=== PATIENT | female | born 1950 | race Caucasian/White ===

== ENCOUNTER 2023-03-10 11:28 | Outpatient (OUT) | payer MEDICARE, OTHER, SELFPAY ==
--- NOTE | 2023-03-10 15:16 | CONS_ITS ---
PROCEDURE DATE: ??03/10/2023 PROCEDURE:? Trigger point injection right gluteus medius performed in the office. PREOPERATIVE DIAGNOSIS:? Pain secondary to myofascial spasm of the right gluteus medius. POSTOPERATIVE DIAGNOSIS:? Pain secondary to myofascial spasm of the right gluteus medius. SOLUTION USED FOR INJECTION:? 2 mL of 2% lidocaine, 2 mL of 0.25% Marcaine and 10 mg of Kenalog, total of 5 mL and 3 mL used for the injection. IMMEDIATE COMPLICATIONS:? None. PROCEDURE:? After informed consent was obtained from the patient, placed in the prone position.? The skin overlying the area was prepped with alcohol.? A 25 gauge 1 ? inch needle inserted into the area of the right gluteus medius.? Needle tip advanced until there was a mild twitch response, at which point we injected 3 mL of solution.? No indication of intravascular or intraneural needle tip placement or injection.? Tolerated the procedure well without complications.? JAKOBD
--- NOTE | 2023-03-10 15:16 | CONS_ITS ---
CONSULTATION DATE: ??03/10/2023 TO:? Karan Andres D.O. CHIEF COMPLAINT:? Includes severe right lower extremity pain, right buttock pain, right hip pain. HISTORY:? Reports the pain as being 6/10, sharp in character, increased with activities such as standing, walking and performing transitioning maneuvers.? Feels most comfortable in the semi-recumbent position.? Denies any change in bowel and bladder habits or new sensorimotor changes in the lower extremities.? EXAM:? Her exam is notable for patient having hypoesthesia along the right L4 or 5 dermatome, mild weakness of the right EHL and anterior tibialis, equivocally positive right sided FABERs sign suggestive of possible hip joint related pain clinically, and spasm and tenderness of the right gluteus medius muscle. IMPRESSION:? Our impression is patient appears to have chronic pain secondary to lumbar degenerative disc disease, possible right L4-L5 neurogenic process, lumbosacral spondylosis and right hip joint related pain clinically, and lastly myofascial spasm of the right gluteus medius. RECOMMENDATIONS:? I have recommended an EMG nerve conduction velocity study of her right lower extremity, right hip x-rays, trigger point injection of the right gluteus medius.? As part of providing excellent, safe, comprehensive care, the following was completed at our patient's visit: 1. A medication reconciliation and review to ensure accurate knowledge of current/active medications, including asking our patients to inform us about any clwz-wva-fnawvdq medications or herbal remedies/nutritional supplements/alternative remedies. 2. A review to specifically ensure our patients have had annual screening for: elevated body mass index (BMI, see intake chart for exact total), tobacco use, screening for depression, and screening for unhealthy alcohol use.? When screening is concerning, patients are provided with education and the specific recommendation to discuss the concerning health issue and treatment options with their primary care provider. ARI
== END 2023-03-10 11:29 | disposition home or self-care (01) ==
LOC: PM 11:29
PROVIDERS: Visit Provider Anesthesiology Pain Medicine
DX: M25.551 Pain in right hip (principal); M62.838 Other muscle spasm
CPT/HCPCS: 20552; 73502

== ENCOUNTER 2023-03-10 12:48 | Outpatient (OUT) | payer MEDICARE, OTHER, SELFPAY ==
--- NOTE | 2023-03-10 12:58 | XR_ITS ---
The [address] [address] Patient Name: ROZ ESCOTO MRN: [id number] date: 1950 Sex: F Assigned Patient Location: [facility] Current Patient Location: [facility] Accession/Order Number: [id number] Exam Date: 03/10/2023 13:15 Report Date: 03/10/2023 23:27 At the request of: RALEIGH ALMAZAN Procedure: XR hip RT min 2V EXAM: XR hip RT min 2V HISTORY: Chronic right hip pain. COMPARISON: None. TECHNIQUE: 2 views right hip joint. FINDINGS: Minimal to mild degenerative change of the right hip joint with no fracture or dislocation. Mild chronic enthesopathic change right greater trochanter. Visualized portion of the right pelvis is intact where seen. IMPRESSION: Slight early degenerative change right hip without acute process. If patient cannot bear weight or has persistent symptoms, then recommend MRI. Electronically authenticated by: SAUL SÁNCHEZ Date: 03/10/2023 23:27
== END 2023-03-10 12:49 ==
LOC: RAD 12:50
PROVIDERS: Visit Provider Anesthesiology Pain Medicine
DX: M25.551 Pain in right hip (principal)
CPT/HCPCS: 73502

== ENCOUNTER 2023-03-25 08:32 | Outpatient (OUT) | payer MEDICARE, OTHER, SELFPAY ==
--- NOTE | 2023-03-25 08:40 | MR_ITS ---
[place] [id number] Patient Name: ROZ LE MRN: [id number] date: 1950 Sex: F Assigned Patient Location: MRI Current Patient Location: Accession/Order Number: [id number] Exam Date: 03/25/2023 08:40 Report Date: 03/26/2023 10:54 At the request of: RALEIGH ALMAZAN Procedure: MR hip RT wo con EXAMINATION: MR hip RT wo con TECHNIQUE: routine multiplanar multisequence awa-VL-xqanoldt imaging of the hip was performed. HISTORY: Right Hip Pain. COMPARISON: Radiograph 03/10/2023 FINDINGS: Ligaments: No acute ligamentous injury. Glenoid labrum: Abnormal heterogeneous signal of the anterior superior portion of the acetabular labrum, consistent with a full-thickness tear. Tendons: Intact and non-displaced. Bones: No significant marrow signal abnormality or defect. Mild prominence of the anterior aspect of the right femoral neck suggesting CAM-type femoral acetabular impingement. Joints: No significant arthritic changes. Articular cartilage appears intact. Soft tissues: No soft tissue mass or abnormal fluid collection. IMPRESSION: 1. Full thickness tear of the anterior superior portion of the acetabular labrum. 2. Findings suggesting CAM-type femoral acetabular impingement. Electronically authenticated by: SANGEETHA CRUZ Date: 03/26/2023 10:54
== END 2023-03-25 08:33 | disposition home or self-care (01) ==
LOC: MRI 08:32
PROVIDERS: Visit Provider Anesthesiology Pain Medicine
DX: M25.551 Pain in right hip (principal); S43.431A Superior glenoid labrum lesion of right shoulder, initial encounter
CPT/HCPCS: 73721

== ENCOUNTER 2023-04-05 14:25 | Outpatient (OUT) | payer MEDICARE, OTHER, SELFPAY ==
--- NOTE | 2023-04-05 | CONS_ITS ---
CONSULTATION DATE: ??04/05/2023 TO:? Dr. Mercer HISTORY:? Patient returns today complaining of pain in her right hip area and right leg pain.? She reports these are two distinct painful areas, the right hip and the right leg.? She reports the right hip pain is increased with activities such as standing and performing transitioning maneuvers.? She reports the right leg pain increases with ambulation.? Her EMG did reveal a right S1 radiculopathy. MRI of her right hip did reveal the patient to have full thickness tear of the anterior superior portion of the acetabular labrum.? PLAN:? At this point, the patient is requesting an orthopedic consultation.? We will comply with her wishes, and she is requesting to stay in the local area; although she did have a consultation recently with an orthopedic surgeon, she is requesting a second opinion, and we will help facilitate the same.? See the patient back in the office in four weeks? time. As part of providing excellent, safe, comprehensive care, the following was completed at our patient's visit: 1. A medication reconciliation and review to ensure accurate knowledge of current/active medications, including asking our patients to inform us about any rlvl-pwg-fypwexw medications or herbal remedies/nutritional supplements/alternative remedies. 2. A review to specifically ensure our patients have had annual screening for: elevated body mass index (BMI, see intake chart for exact total), tobacco use, screening for depression, and screening for unhealthy alcohol use.? When screening is concerning, patients are provided with education and the specific recommendation to discuss the concerning health issue and treatment options with their primary care provider. ARI
== END 2023-04-05 14:26 | disposition home or self-care (01) ==
LOC: PM 14:26
PROVIDERS: Visit Provider Anesthesiology Pain Medicine
DX: M25.551 Pain in right hip (principal); S73.191A Other sprain of right hip, initial encounter; M54.18 Radiculopathy, sacral and sacrococcygeal region
CPT/HCPCS: G0463

== ENCOUNTER 2023-12-05 10:27 | Outpatient (OUT) | payer MEDICARE, SELFPAY ==
--- NOTE | 2023-12-05 10:36 | VEIN_ITS ---
Patient Name: ROZ LE MR#: [id number] : 1950 Exam Date: 12/05/2023 Ordering Doctor: DR KARAN DAVIS M.D. RADIOLOGY REPORT PROCEDURE: VC EXT VENOUS REFLUX ALBERT LMTD COMPARISON: None. INDICATIONS: I83.813 Bilateral painful varicose veins TECHNIQUE: Duplex imaging of the lower extremity to assess the deep and superficial venous system for the presence of deep or superficial venous incompetence and to document the location and severity of disease. The study includes evaluation of the great saphenous vein (GSV), anterior accessory saphenous vein (AASV) and small saphenous vein (SSV). Patient scanned in reverse Trendelenburg and standing. FINDINGS: RIGHT LOWER EXTREMITY: Saphenofemoral Junction Reflux: Yes 7.4mm 0.6 sec GSV: Diam (mm) Reflux/ Time (sec) Proximal Thigh 7.0 Yes 0.9 Mid Thigh 4.4 Yes 0.8 Distal Thigh 4.6 Yes 1.2 Prox Calf 4.1 Yes 3.3 Mid Calf 3.3 Yes 0.6 Saphenopopliteal Junction Reflux: 1.5mm Yes 0.2 SSV: Proximal Calf 1.2 No Mid Calf 2.2 No AASV: Proximal Thigh 3.3 Yes 4.0 Mid Thigh 1.9 Yes 0.7 Distal Thigh Thrombi: No acute or chronic thrombus. Compressibility: Normal. Flow: Mild deep venous reflux. Preforator: None. Tech Note: Hyperechoic area distal medial lower leg in area of bruising 1.2 x 0.9 x 0.5 cm. Incompetent varicose vein proximal medial lower leg measures 4.0 mm with 0.7s reflux. Varicose vein distal medial thigh measures 4.0 mm with 0.5s reflux. LEFT LOWER EXTREMITY: Saphenofemoral Junction Reflux: Yes 5.9 mm 1.0 sec GSV: Diam (mm) Reflux/Time (sec) Proximal Thigh 6.4 Yes 4.0 Mid Thigh 4.3 Yes 1.4 Distal Thigh 3.4 Yes 4.9 Prox Calf 2.5 Yes 4.7 Mid Calf 2.0 Yes 2.2 Saphenopopliteal Junction Relux: 2.5 mm Yes 0.3 SSV: Proximal Calf 2.0 Yes 2.0 Mid Calf 1.9 Yes 0.3 AASV: Proximal Thigh 4.5 Yes 0.4 Mid Thigh 2.4 Yes 0.3 Distal Thigh Thrombi: No acute or chronic thrombus. Compressibility: Normal. Flow: Moderate to severe deep venous reflux. [place]: Mid medial lower leg measures 2.6 mm with 4.9s reflux. Tech Note: Incompetent varicose vein proximal posterior lower leg measures 2.7 mm with 0.2s reflux. CONCLUSION: 1. Moderate to severe bilateral great saphenous vein venous insufficiency with mild dilatation and saphenofemoral junction reflux 2. Moderate reflux right anterior accessory saphenous vein without dilatation 3. Moderate reflux left small saphenous vein without dilatation 4. Bilateral incompetent varicose veins, right greater than left Dictated by: Karan Davis MD on 12/05/2023 at 11:50 Approved by: Karan Davis MD on 12/05/2023 at 11:54
--- NOTE | 2023-12-05 10:36 | VEIN_ITS ---
Patient Name: ROZ LE MR#: [id number] : 1950 Exam Date: 12/05/2023 Ordering Doctor: DR KARAN DAVIS M.D. RADIOLOGY REPORT PROCEDURE: [facility]IN [facility] - OFFICE VISIT INITIAL COMPARISON: None. PROGRESS NOTES: 73-year-old female who presents with an 8 month history of lower extremity pain swelling and varicose veins. The patient's left side is worse than the right. The patient also complains of aching heaviness itching and dull pain. The patient rates the pain as a 3 on a scale of 1-10. The patient's pains are exacerbated by prolonged standing and are partially relieved by rest, leg elevation, support stockings and over the counter naproxen. The patient was diagnosed with varicose veins approximately 5 years ago and did have sessions of injection sclerotherapy in 2019. The patient denies any signs and symptoms to suggest arterial ischemia. The patient describes a family history significant for CVA, varicose veins in her mother and sister. Lung cancer in her father. . The patient denies alcohol use. The patient has never smoked. No illicit drug use. Past medical symptoms are significant for superficial bilateral phlebitis, bilateral rotator cuff repair. No history of deep venous thrombus or pulmonary embolus. See separate history and physical for medication list. No prior treatment for varicose or spider veins. No prior use of compression stockings. After review of nurse notes, history and physical exam I discussed at length the pathophysiology of venous hypertension , insufficiency and possible treatments, therapies and strategies available. We discussed at length the importance of elevating the lower extremities above the level of the heart, increased physical activity and compression stocking use. I discussed with the patient that her lower extremity swelling was not lymphedema but likely related to subcutaneous fat and possibly represented lipedema. Some of the patient's symptoms however could be related to significant venous insufficiency. We discussed intravenous laser ablation, micro foam chemical ablation, injection sclerotherapy. Risks benefits alternatives were discussed with the patient Ultrasound venous reflux study performed the same day was discussed at length with the patient. The report demonstrates moderate to severe bilateral great saphenous vein venous insufficiency with saphenofemoral junction reflux. Moderate right anterior accessory and left small saphenous vein reflux without dilatation. Bilateral varicose veins. PHYSICAL EXAM: The right leg demonstrates a few scattered varicose veins. Moderate reticular and spider veins throughout the thigh lower leg, ankle and foot. Prominent circumferential subcutaneous fat of the thigh and lower leg extending to the ankle but not into the foot. No skin discoloration or active ulceration. The left leg demonstrates a few scattered varicose veins. Moderate reticular and spider veins throughout the thigh lower leg, ankle and foot. Prominent circumferential subcutaneous fat of the thigh and lower leg extending to the ankle but not into the foot. No skin discoloration or active ulceration. Both thighs, legs and feet were symmetrically warm to the touch. Good posterior tibial and dorsalis pedis pulses were present bilaterally. VEIN/VC Facility EST Comprehensive IMPRESSION: 1. Moderate to severe bilateral great saphenous vein venous insufficiency with saphenofemoral junction reflux 2. Mild bilateral lower extremity varicose veins 3. No definite lower extremity subcutaneous edema 4. No definite flow significant arterial disease 5. CEAP: C2, Ep, As, Pr PLAN: 1. Endovenous laser ablation of the left great saphenous vein. If there is improvement in the patient's symptoms we will continue with laser ablation of the right great saphenous vein 2. Micro foam chemical ablation bilateral incompetent varicose veins 3. Long-term use of bilateral knee or thigh high 20-30 mm compression stockings 4. Elevated legs and increased physical activity for symptomatic relief Nurse notes, history and physical were reviewed and confirmed, see attached forms. The nurse was present throughout the physical exam and consultation Dictated by: Karan Davis MD on 12/05/2023 at 12:31 Approved by: Karan Davis MD on 12/05/2023 at 12:38
== END 2023-12-05 10:28 | disposition home or self-care (01) ==
PROVIDERS: PCP Radiology Diagnostic Radiology; Visit Provider Radiology Diagnostic Radiology
DX: I83.813 Varicose veins of bilateral lower extremities with pain (principal)
CPT/HCPCS: 93970; G0463

== ENCOUNTER 2023-12-16 12:24 | Outpatient (OUT) | payer MEDICARE, SELFPAY ==
--- NOTE | 2023-12-16 12:30 | VEIN_ITS ---
The [address] [address] Patient Name: ROZ LE MRN: [id number] date: 1950 Sex: F Assigned Patient Location: Current Patient Location: Accession/Order Number: [id number] Exam Date: 12/16/2023 12:31 Report Date: 12/16/2023 13:50 At the request of: RAUDEL DAVIS Procedure: VC Endovenous Ablation 1VeinLT EXAMINATION: VC Endovenous Ablation 1VeinLT HISTORY: Pain due to varicose veins of bilateral legs I83.813 The risks and benefits of the procedure had been previously discussed, and were rediscussed at length. Informed written consent was obtained. Earnest Montes De Oca RN and Jessica Verma RDMS assisted. Time out procedure was performed. The left lower extremity was prepared and draped in the usual sterile fashion to allow knee flexion in the sterile field. Duplex ultrasound probe was draped in a sterile cover, sterile transmission gel was used. Venous mapping was performed with the areas of dilation and large tributaries marked. The total length was 34 cm from the entry proximal calf to 3 cm below the Saphenofemoral junction. The diameter of the left great saphenous vein ranged from 6.4 mm. A 30 gauge needle and 1% buffered lidocaine was used to anesthetize the entry site. A 4 mm incision was made with a scalpel and the saphenous vein was entered percutaneously under direct ultrasound guidance with a micropuncture set, a single stick was successful in gaining access. A micro-guide wire was inserted and the needle removed. A micro-set including a dilator was inserted over the microwire and the needle and dilator were removed. A guide wire was inserted through the micro-set and guided through the saphenous vein to the saphenofemoral junction. The dilator was removed and an introducer sheath was inserted over the wire until the end of the sheath entered the saphenofemoral junction. The dilator and wire were removed and the 600 micron fiber was introduced and placed and positioned so that it extended beyond the sheath and was 3 cm distal to the saphenofemoral or saphenopopliteal junction. Final position of the fiber was determined by ultrasound guidance and duplex imaging. Tumescent anesthetic was delivered by ultrasound guidance. 200 cc of fluid was delivered along the entire course of the saphenous vein. The solution consisted of 1000 cc of normal saline with 40 mL of 1% lidocaine and 20 mL of sodium bicarbonate. A final positioning check was made. The energy source was turned on by means of the foot pedal and the fiber and sheath were withdrawn. The total number of Joules delivered was 1519. The laser was active for 190 seconds under continuous pulse, average laser use of 8 J. Laser start time: 1:22 PM Laser stop time: 1:26 PM Date: 12/16/2023. A duplex ultrasound revealed compressibility and flow at the saphenofemoral junction immediately after the procedure. Hemostasis at the access site was achieved. The skin incision of the saphenous vein was closed with a 4 x 4. A compression stocking was applied. Postop instructions were given. A follow up appointment was recommended and scheduled. The patient tolerated the procedure well. Electronically authenticated by: PARISA SHEPARD Date: 12/16/2023 13:50
[2023-12-19] MEDS: LIDOCAINE HCL 1% 100 MG/10 ML MDV INJ (10:17)
[2023-12-19] MEDS: 0.9 % SODIUM CHLORIDE 500 ML, LIDOCAINE HCL 20 ML, SODIUM BICARBONATE 10 MEQ INJ (10:17)
== END 2023-12-16 12:25 | disposition home or self-care (01) ==
LOC: VC 12:24
PROVIDERS: PCP Radiology Diagnostic Radiology; Visit Provider Radiology Diagnostic Radiology
DX: I83.813 Varicose veins of bilateral lower extremities with pain (principal)
CPT/HCPCS: 36478

== ENCOUNTER 2023-12-20 08:21 | Outpatient (OUT) | payer MEDICARE, SELFPAY ==
--- NOTE | 2023-12-20 08:23 | VEIN_ITS ---
Patient Name: ROZ LE MR#: [id number] : 1950 Exam Date: 12/20/2023 Ordering Doctor: DR RAUDEL DAVIS M.D. RADIOLOGY REPORT PROCEDURE: [facility] VEIN C[facility] - OFFICE VISIT FOLLOW UP COMPARISON: None. PROGRESS NOTES: The patient reports improvement in leg symptoms. There has been interval reduction in varicosities. The patient has followed our recommendations to walk 20-30 minutes once or twice per day since the procedure. Physical exam demonstrates decrease in varicosities of the leg. Persistent varicosities, reticular veins, extensive spider veins are identified along the legs bilaterally. Review of the ultrasound performed the same day demonstrates occlusive thrombus extending throughout the treated vein(s), see separate report, consistent with a successful ablation. No thrombus extending into or beyond the saphenofemoral junction. The patient expressed a desire to proceed with treatment of right great saphenous vein followed by remaining incompetent varicosities. The patient was informed that treatment was a process and would require several procedures/sessions. VEIN/ Facility EST TD IMPRESSION: 1. Successful ablation of the left great saphenous vein(s). 2. Persistent varicose veins and lower extremity symptoms. PLAN: Endovenous laser ablation of right great saphenous vein. Nurse notes, history and physical were reviewed and confirmed, see attached forms. The nurse was present throughout the physical exam and consultation Dictated by: Jose Srivastava M.D. on 12/20/2023 at 09:02 Approved by: Jose Srivastava M.D. on 12/20/2023 at 09:03
--- NOTE | 2023-12-20 08:23 | VEIN_ITS ---
Patient Name: ROZ LE MR#: [id number] : 1950 Exam Date: 12/20/2023 Ordering Doctor: DR RAUDEL DAVIS M.D. RADIOLOGY REPORT PROCEDURE: VC EXT VENOUS LT LIMITED COMPARISON: None. INDICATIONS: I80.02 phlebitis/thrombophlebitis left leg TECHNIQUE: Lower extremity hodge scale and Duplex Doppler evaluation of the deep venous system from the inguinal ligament through the calf veins. FINDINGS: REGION: Left lower extremity. THROMBI: Negative for DVT. Heat induced thrombus visualized 1.9cm from the SFJ. The heat induced thrombus extends from groin to proximal calf. COMPRESSIBILITY: Non-compressible segments corresponding to thrombus FLOW: Areas of no flow corresponding to thrombus OTHER: CONCLUSION: 1. Successful post ablation occlusion of left great saphenous vein. Dictated by: Jose Srivastava M.D. on 12/20/2023 at 09:01 Approved by: Jose Srivastava M.D. on 12/20/2023 at 09:02
== END 2023-12-20 08:22 | disposition home or self-care (01) ==
LOC: VC 08:21
PROVIDERS: PCP Radiology Diagnostic Radiology; Visit Provider Radiology Diagnostic Radiology
DX: I80.02 Phlebitis and thrombophlebitis of superficial vessels of left lower extremity (principal)
CPT/HCPCS: 93971; G0463

== ENCOUNTER 2024-01-03 12:57 | Outpatient (OUT) | payer MEDICARE, SELFPAY ==
[2024-01-03] MEDS: LIDOCAINE HCL 1% 100 MG/10 ML MDV INJ (13:04)
[2024-01-03] MEDS: 0.9 % SODIUM CHLORIDE 500 ML, LIDOCAINE HCL 20 ML, SODIUM BICARBONATE 10 MEQ INJ (13:05)
--- NOTE | 2024-01-03 13:05 | VEIN_ITS ---
The [address] [address] Patient Name: ROZ LE MRN: [id number] date: 1950 Sex: F Assigned Patient Location: Current Patient Location: Accession/Order Number: [id number] Exam Date: 01/03/2024 13:08 Report Date: 01/03/2024 14:05 At the request of: RAUDEL DAVIS Procedure: VC Endovenous Ablation 1VeinRT EXAMINATION: VC Endovenous Ablation 1Vein, right great saphenous vein HISTORY: I83.813 Painful varicose viens COMPARISON: No relevant comparison available. TECHNIQUE: The risks and benefits of the procedure had been previously discussed, and were rediscussed at length. Informed written consent was obtained. Rebecca Hinojosa and Earnest Montes De Oca assisted. Time out procedure was performed. The right lower extremity was prepared and draped in the usual sterile fashion to allow knee flexion in the sterile field. Duplex ultrasound probe was draped in a sterile cover, sterile transmission gel was used. Venous mapping was performed with the areas of dilation and large tributaries marked. The total length was 33 cm from the entry below the knee to 3 cm below the saphenofemoral junction. The vein below the insertion site splint and was not amenable to ablation. The diameter of the greater saphenous vein ranged from 5-7 mm. A 30 gauge needle and 1% buffered lidocaine was used to anesthetize the entry site. A 4 mm incision was made with a scalpel and the saphenous vein was entered percutaneously under direct ultrasound guidance with a micropuncture set, a single stick was successful in gaining access. A micro-guide wire was inserted and the needle removed. A micro-set including a dilator was inserted over the microwire and the needle and dilator were removed. A 0.018 guide wire was inserted through the micro-set and threaded through the saphenous vein to the saphenofemoral junction. The dilator was removed and an introducer sheath was inserted over the wire until the end of the sheath entered the saphenofemoral junction. The dilator and wire were removed and the 600 micron fiber was introduced and placed and positioned so that it extended beyond the sheath and was 3 cm peripheral to the saphenofemoral femoral junction. Final position of the fiber was determined by ultrasound guidance and duplex imaging. Tumescent anesthetic was delivered by ultrasound guidance. 175 cc of fluid was delivered along the entire course of the saphenous vein. The solution consisted of 1000 cc of normal saline with 40 mL of 1% lidocaine and 20 mL of sodium bicarbonate. A final positioning check was made. The energy source was turned on by means of the foot pedal and the fiber and sheath were withdrawn. The total number of Joules delivered was 1529. The laser was active for 191seconds under continuous pulse, average laser use of 8 J. Laser start time 1:53 PM 01/03/2024 . Laser stop time 1:58 PM 01/03/2024 . A duplex ultrasound revealed compressibility and flow at the saphenofemoral junction immediately after the procedure. Hemostasis at the access site was achieved. The skin incision of the saphenous vein was closed with a 4 x 4. A compression stocking was applied. Postop instructions were given. A follow up appointment was recommended and scheduled. The patient tolerated the procedure well and was discharged in good condition . VEIN/VC Endovenous Ablation 1VeinRT IMPRESSION: Technically successful endovenous laser ablation of the right great saphenous vein Electronically authenticated by: RAUDEL DAVIS Date: 01/03/2024 14:05
== END 2024-01-03 12:58 | disposition home or self-care (01) ==
LOC: VC 12:57
PROVIDERS: PCP Radiology Diagnostic Radiology; Visit Provider Radiology Diagnostic Radiology
DX: I83.813 Varicose veins of bilateral lower extremities with pain (principal)
CPT/HCPCS: 36478

== ENCOUNTER 2024-01-09 11:00 | Outpatient (OUT) | payer MEDICARE, SELFPAY ==
--- NOTE | 2024-01-09 11:02 | VEIN_ITS ---
Patient Name: ROZ LE MR#: [id number] : 1950 Exam Date: 01/09/2024 Ordering Doctor: DR KARAN DAVIS M.D. RADIOLOGY REPORT PROCEDURE: VC EXT VENOUS RT LMTD COMPARISON: None. INDICATIONS: Phlebitis of superficial veins of right lower extremity I80.01 TECHNIQUE: Lower extremity hodge scale and Duplex Doppler evaluation of the deep venous system from the inguinal ligament through the calf veins. FINDINGS: REGION: Right lower extremity. THROMBI: Negative for DVT. Heat induced thrombus in right GSV 0.6 cm from SFJ and extends to proximal calf. COMPRESSIBILITY: Non-compressible segments corresponding to thrombus FLOW: Areas of no flow corresponding to thrombus CONCLUSION: Post ablation occlusion of the right great saphenous vein with heat induced thrombus 0.6 cm from the saphenofemoral junction. Dictated by: Karan Davis MD on 01/09/2024 at 11:56 Approved by: Karan Davis MD on 01/09/2024 at 11:58
--- NOTE | 2024-01-09 11:02 | VEIN_ITS ---
Patient Name: ROZ LE MR#: [id number] : 1950 Exam Date: 01/09/2024 Ordering Doctor: DR KARAN DAVIS M.D. RADIOLOGY REPORT PROCEDURE: [facility] - OFFICE VISIT FOLLOW UP [facility] PROGRESS NOTES: The patient reports no significant problem following intravenous laser ablation of the right great saphenous vein. The patient has worn her compression stocking. The patient not require oral analgesics. The patient has tried exercise Physical exam demonstrates a small area of bruising in the medial thigh related to tumescence injection. Thrombosed right great saphenous vein can be palpated. No erythema or warmth to suggest cellulitis or thrombophlebitis. No active ulceration Review of the ultrasound performed the same day demonstrates occlusive thrombus extending throughout the treated right great saphenous vein. Heat induced thrombus is 0.6 cm from the saphenofemoral junction. No deep vein thrombus. The patient expressed a desire to proceed with treatment of right leg incompetent varicose veins. VEIN/[facility] LMTD IMPRESSION: 1. Successful ablation of the right great saphenous vein, heat induced thrombus 0.6 cm from the saphenofemoral junction 2. Persistent incompetent right leg varicose veins PLAN: Follow-up ultrasound in 7-10 days for heat induced thrombus Micro foam chemical ablation right leg incompetent varicose veins Nurse notes, history and physical were reviewed and confirmed, see attached forms. The nurse was present throughout the physical exam and consultation Dictated by: Karan Davis MD on 01/09/2024 at 12:04 Approved by: Karan Davis MD on 01/09/2024 at 12:12
== END 2024-01-09 11:01 | disposition home or self-care (01) ==
LOC: VC 11:00
PROVIDERS: PCP Radiology Diagnostic Radiology; Visit Provider Radiology Diagnostic Radiology
DX: I80.01 Phlebitis and thrombophlebitis of superficial vessels of right lower extremity (principal)
CPT/HCPCS: 93971; G0463

== ENCOUNTER 2024-01-19 09:22 | Outpatient (OUT) | payer MEDICARE, SELFPAY ==
--- NOTE | 2024-01-19 09:26 | VEIN_ITS ---
The [address] [address] Patient Name: ROZ LE MRN: [id number] date: 1950 Sex: F Assigned Patient Location: Current Patient Location: Accession/Order Number: [id number] Exam Date: 01/19/2024 09:35 Report Date: 01/19/2024 10:41 At the request of: RAUDEL DAVIS Procedure: VC INJ Foam Sclerosant WUS CATH LAB PROCEDURE: VC INJ Foam Sclerosant WUS CATH LAB, right leg COMPARISON: None. HISTORY: Pain due to varicose veins of bilateral legs I83.813 Pre-operative Diagnosis: CEAP class C3 venous insufficiency with pain, tenderness, edema and incompetent right varicose and saphenous vein(s), chronic venous insufficiency right leg secondary to venous incompetence Post-operative Diagnosis: CEAP class C3 venous insufficiency with pain, tenderness, edema and incompetent right varicose and saphenous vein(s), chronic venous insufficiency right leg secondary to venous incompetence Procedure Performed: 1. Ultrasound-guided microfoam chemical ablation with Varithenaregistered 2. Intraoperative ultrasound guidance No charge to the left leg Anesthesia: None Indications for Procedure: 73-year-old female who presents with a long history of lower extremity pain and swelling. The patient failed conservative medical therapy including medical compression stockings, exercise and analgesics. Prior procedures include endovenous laser ablation and Microfoam chemical ablation. Multiple incompetent varicosities of the right leg. Duplex scan showed reflux and enlarged diameters up to 4 mm. The patient underwent informed consent including management options where the complications of infection, bleeding, pain, and skin injury were discussed. Particular attention was spent discussing thrombus extension and deep vein thrombosis as well as the possibility of pulmonary embolus and treatment with oral or injectable blood thinners. Procedure: The patient walked to the procedure room. All applicable staff donned appropriate apparel. A procedure timeout was performed to confirm correct patient, correct extremity, correct procedure, and correct room set-up including presence of all applicable supplies, devices, and drugs. A duplex ultrasound, performed by myself confirmed the location and incompetence of branch saphenous varicosities and their course was marked on the skin together with the dilated tributaries. The extent of treatment of the vein and the associated varicosities was determined through ultrasound mapping. The skin was prepped and then punctured with a butterfly needle and advanced under ultrasound guidance. The Varithenaregistered canister was activated and the canister was primed and purged as required in the instructions for use. Varithenaregistered was drawn into a sterile syringe. The following injections were made: 5 cc injected into a 4 mm varicose vein mid medial right lower leg 2 cc injected into a 3 mm varicose vein right lateral lower leg 2 cc injected into a 3 mm varicose vein right posterior calf 2 cc injected into a 3 mm varicose vein right posterior distal thigh 2 cc injected into a 3 mm varicose vein left posterior lower leg Varithenaregistered was slowly administered at 0.5-1.0 cc/second with close observation by ultrasound of its course in the vessels. Total volume utilized was: 13cc. Following administration of Varithenaregistered the leg was elevated and the patient was asked to repeatedly dorsiflex the ankle to limit flow of Varithenaregistered into perforating veins. Once appropriate spasm had been confirmed in the treated veins, the vascular catheter was removed from the leg and light pressure was applied over the puncture site for hemostasis. The common femoral and deep superficial veins were then evaluated for flow and compressibility prior to dressing placement. The lower extremity was kept elevated at 45 degrees above the horizontal and cording material was applied over the saphenous segments and tributaries to allow for eccentric compression over the target vessels including the targeted saphenous vein(s). A multilayer dressing was applied consisting of foam pads, coban and thigh-high 20-30 mm Hg compression elastic support hose were placed on the patient. The leg was lowered only after compression had been applied and the patient was immediately ambulatory. The patient ambulated 10 minutes under supervision and was without apparent concerns at time of release. Post-care instructions include advising patient to keep post-treatment bandages in place and dry for 48 hours, avoid extended periods of inactivity, avoid heavy exercise for one week, wear compression stockings on the treated leg continuously for two weeks, to walk daily for 10 minutes over the next month. The patient was instructed to take an anti-inflammatory medicine as needed and to follow up for color duplex scan of the Saphenous veins, the treated branch saphenous varicosities, the adjacent deep veins, and additional treatment within 7 days. PERSONNEL: Earnest Montes De Oca RN Electronically authenticated by: RAUDEL DAVIS Date: 01/19/2024 10:41
--- OUTSIDE RECORDS SUMMARY | 2024-01-19 09:42 | XMS_ITS | CCD ---
Author Organization [facility] Care Team Providers [employer] Worker Name Role Phone ABEL CHIU Unavailable Unavailable ABEL CHIU Unavailable Unavailable ABEL CHIU Unavailable Unavailable Simona ANDRES Primary Care Physician [phone] LAKSHMIPATHY ., NARENDRANATH Consulting Nicol vailable LAKSHMIPATHY ., NARPRAKASHATH Attending Nicol vailable LAKJASPALPATHY ., STARATH Admitting Nicol vailable MICAELA, DR SIMONA Webb Primary Care Unavailable LAURENT ., DR GABRIEL Aburto Attending Unavailable LAURENT ., DR GABRIEL Aburto Admitting Unavailable BAILEY ., SWETHA Consulting Unavailable MICAELA, DR SIMONA Webb Primary Care Unavailable LAKSHMIPATHY ., RALEIGH Consulting Nicol vailable LAURENT ., DR GABRIEL Aburto Attending Unavailable LAURENT ., DR GABRIEL Aburto Admitting Unavailable LAURENT ., DR GABRIEL Aburto Consulting Unavailable MICAELA, DR SIMONA Webb Primary Care Unavailable BAILEY ., SWETHA Consulting Unavailable LAURENT ., DR GABRIEL Aburto Attending Unavailable LAURENT ., DR GABRIEL Aburto Admitting Unavailable BAILEY ., SWETHA Consulting Unavailable MICAELA, DR SIMONA Webb Primary Care Unavailable LAKSHMIPATHY ., RALEIGH Attending Nicol vailable LAKSHMIPATHY ., STARATH Admitting Nicol vailable MICAELA, DR SIMONA Webb Primary Care Unavailable LAURENT ., DR GABRIEL Aburto Consulting Unavailable LAURENT ., DR GABRIEL Aburto Attending Unavailable LAURENT ., DR GABRIEL Aburto Admitting Unavailable MICAELA, DR SIMONA Webb Primary Care Unavailable LAURENT ., DR GABRIEL Aburto Attending Unavailable LAURENT ., DR GABRIEL Aburto Admitting Unavailable BAILEY ., SWETHA Consulting Unavailable MICAELA, DR SIMONA Webb Primary Care Unavailable LAURENT ., DR GABRIEL Aburto Attending Unavailable LAURENT ., DR GABRIEL Aburto Admitting Unavailable BAILEY ., SWETHA Consulting Unavailable MICAELA, DR SIMONA Webb Primary Care Unavailable MICAELA, DR SIMONA Webb Consulting Unavailable LAURENT ., DR GABRIEL Aburto Attending Unavailable LAURENT ., DR GABRIEL Aburto Admitting Unavailable MICAELA, DR SIMONA Webb Primary Care Unavailable LAURENT ., DR GABRIEL Aburto Consulting Unavailable SHIRLEY RUVALCABA Consulting Unavailable ANDRES, DR SIMONA Webb Consulting Unavailable LAURENT ., DR GABRIEL Aburto Attending Unavailable LAURENT ., DR GABRIEL Aburto Admitting Unavailable LAURENT ., DR GABRIEL Aburto Consulting Unavailable MICAELA, DR SIMONA Webb Primary Care Unavailable EFRAIN SANCHEZ Consulting Unavailable LAURENT ., DR GABRIEL Aburto Consulting Unavailable LAURENT ., DR GABRIEL Aburto Attending Unavailable LAURENT ., DR GABRIEL Aburto Admitting Unavailable ANDRES, DR SIMONA Webb Primary Care Unavailable BAILEY .SWETHA Consulting Unavailable LAKSHMIPATHY ., NARENDRANATH Attending Nicol vailable LAKSHMIPATHY ., NARENDRANATH Admitting Nicol vailable MICAELA, DR SIMONA Webb Primary Care Unavailable LAKSHMIPATHY ., NARENDRANATH Consulting Nicol vailable LINUS JOE Unavailable LAKSHMIPATHY ., NARENDRANATH Attending Nicol vailable LAKSHMIPATHY ., NARENDRANATH Admitting Nicol vailable DR SIMONA ANDRES Primary Care Unavailable LAKSHMIPATHY ., NARENDRANATH Consulting Nicol vailable LAKSHMIPATHY ., NARENDRANATH Attending Nicol vailable LAKSHMIPATHY ., NARENDRANATH Admitting Nicol vailable MICAELA, DR SIMONA Webb Primary Care Unavailable LAKSHMIPATHY ., NARENDRANATH Consulting Nicol vailable LAKSHMIPATHY ., NARENDRANATH Consulting Nicol vailable LAKSHMIPATHY ., NARENDRANATH Attending Nicol vailable AYLINSHMIPATHY ., NARENDRANATH Admitting Nicol vailable DR SIMONA ANDRES Primary Care Unavailable MD Simona Andres Primary Care Provider DO Linus Arriola Attending Provider Simona Andres MD Primary Care Provider Nicolas Ramires Unavailable Linus Arriola Admitting Unavailable Linus Arriola Attending Unavailable Simona Andres Primary Care Unavailable Linus Arriola Attending Unavailable Simona Andres Primary Care Unavailable Linus Arriola Admitting Unavailable Simona Andres Primary Care Unavailable Nicolas Ramires Admitting Unavailable Nicolas Ramires Attending Unavailable MD Simona Andres Primary Care Provider [phone] MD Nicolas Ramires Attending Provider [phone] SIMONA ANDRES Primary Care Unavailable CONOR DUEÑAS A Attending Unavailable SPENSER, CONOR A Admitting Unavailable SPENSER, CONOR A Admitting Unavailable ANDRES, SIMONA K Primary Care Unavailable SPENSER, CONOR A Attending Unavailable ANDRES, SIMONA K Primary Care Unavailable ZACH BENZ Attending Unavailable MARYCHUY PECK Referring Unavailable ANDRES, SIMONA K Primary Care Unavailable MARK WILSON Referring Unavailable CONOR DUEÑAS Attending Unavailable ANDRES, SIMONA K Primary Care Unavailable MARK WILSON Attending Unavailable ANDRES, SIMONA Jon Primary Care Unavailable Simona Andres MD Primary Care Provider Fredy Parker Admitting Unavailable Fredy Parker Attending Unavailable ANDRES, Simona K Referring Unavailable ANDRES, Simona K Admitting Unavailable ANDRES, Simona K Attending Unavailable Pocos, Raudel Pfeiffer Attending Unavailable PocRaudel cedillo Referring Unavailable Pocnguyen, Raudel Pfeiffer Admitting Unavailable Davidson, Basem GChandler Attending Unavailable Davidson, Basem G. Referring Unavailable Pocos, Raudel Pfeiffer Attending Unavailable Pocos, Raudel Pfeiffer Referring Unavailable Pocos, Raudel Pfeiffer Admitting Unavailable Fredy Parker Attending Unavailable Fredy Parker Admitting Unavailable ANDRES, Simona K Attending Unavailable ANDRES, Simona K Admitting Unavailable Fredy Parker Attending Unavailable ANDRES, Simona K Attending Unavailable ANDRES, Simona Webb Attending Unavailable SpasiKush street V. Attending Unavailabl e Fredy Parker Attending Unavailable RICHFLORIAN BURGER Attending Unavailable ANDRES, Simona K Attending Unavailable ANDRES, Simona K Attending Unavailable ANDRES, Simona K Attending Unavailable ANDRES, Simona K Attending Unavailable ANDRES, Simona K Admitting Unavailable ANDRES, Simona K Admitting Unavailable ANDRES, Simona K Attending Unavailable Fredy Parker Attending Unavailable Fredy Parker Admitting Unavailable Davidson, Basem G. Attending Unavailable Davidson, Basem G. Referring Unavailable Davidson, Basem G. Admitting Unavailable Davidson, Basem G. Admitting Unavailable Davidson, Basem G. Attending Unavailable Davidson, Basem G. Referring Unavailable THALIA FARLEY Attending Unavailab le POCOSRAUDEL Referring Unavailable POCOS, RAUDEL Pfeiffer Referring Unavailable POCOS, RAUDEL Pfeiffer Referring Unavailable POCOS, RAUDEL Pfeiffer Attending Unavailable PLEASNICK, THALIA Pfeiffer Attending Unavailab le POCOS, RAUDEL Pfeiffer Referring Unavailable COBB, THELMA Gates Attending Unavailable POCOS, RAUDEL Pfeiffer Referring Unavailable COBB, THELMA Gates Attending Unavailable POCOS, RAUDEL Pfeiffer Referring Unavailable PHILLIPS, RUIZ Attending Unavailable POCOS, RAUDEL Pfeiffer Referring Unavailable COBB, THELMA Gates Attending Unavailable POCOS, RAUDEL Pfeiffer Referring Unavailable COBB, THELMA Gates Attending Unavailable POCOS, RAUDEL Pfeiffer Referring Unavailable COBB, THELMA Gates Attending Unavailable POCOS, RAUDEL Pfeiffer Referring Unavailable COBB, THELMA Gates Attending Unavailable POCOS, RAUDEL Pfeiffer Referring Unavailable PHILLIPS, RUIZ Attending Unavailable POCOS, RAUDEL Pfeiffer Referring Unavailable NICOSOPHIA Attending Unavailable PLEASNICK, THALIA Pfeiffer Attending Unavailab le POCOS, RAUDEL Pfeiffer Referring Unavailable PLEASNICK, THALIA Pfeiffer Attending Unavailab le POCOS, RAUDEL Pfeiffer Referring Unavailable ZAHLERANNELISE Attending Unavailable PLEASNICK, THALIA Pfeiffer Attending Unavailab le POCOS, RAUDEL Pfeiffer Referring Unavailable PHILLIPS, RUIZ Attending Unavailable POCOS, RAUDEL Pfeiffer Referring Unavailable COBB, THELMA Gates Attending Unavailable POCOS, RAUDEL Pfeiffer Referring Unavailable PHILLIPS, RUIZ Attending Unavailable POCOS, RAUDEL Pfeiffer Referring Unavailable PHILLIPS, RUIZ Attending Unavailable POCOS, RAUDEL Pfeiffer Referring Unavailable PLEASNICK, THALIA Pfeiffer Attending Unavailab le POCOS, RAUDEL Pfeiffer Referring Unavailable DOLCEALICIA Attending Unavailable POCOS, RAUDEL Pfeiffer Attending Unavailable PLEASNICK, THALIA Pfeiffer Attending Unavailab le POCOS, RAUDEL Pfeiffer Referring Unavailable Allergies Allergy Classification Reported Allergen(s) Allergy Type Date of Onset Reaction(s) Facility (20 sources) Clindamycin; Translations: [clindamycin] Drug Allergy 0 Unknown, Rash [facility] (1 source) Clindamycin Drug Allergy 2 [facility] (1 source) Acetaminophen / HYDROcodone; Translations: [Gotebo] Drug Allergy [facility] Repository Medications Current Medications Medication Drug Class(es) Dates Sig (Normalized) Sig (Original) Acetaminophen / HYDROcodone (2 sources) Opioid Agonist Start: 07-13-2013 [place] 5-325 MG 1-2 tablet as needed Orally every 4- 6 hrs Jun, Active ALPRAZolam 0.5 mg oral tablet (20 sources) Benzodiazepine Start: 10-19-2023 take 1 tablet by mouth three times daily as needed for anxiety Xanax 0.5 mg Tab 0.5 mg = 1 tab(s), Oral, TID, PRN for anxiety, # 90 tab(s), Refills(s) 1, Pharmacy: [facility], 155, cm, 09/22/23 9:34:00 EST, Height/Length Dosing, 62.3, kg, 09/22/23 9:34:00 EST, Weight Dosing Start Date: 10/19/23 Status: Ordered Start: 06-29-2023 take 1 tablet by boaz th three times daily as needed for anxiety Xanax 0.5 mg Tab 0.5 mg = 1 tab(s), Oral, TID, PRN for anxiety, # 90 tab(s), Refills(s) 1, Pharmacy: [facility], 153, cm, 06/23/23 10:54:00 EDT, Height/Length Dosing, 61.3, kg, 06/23/23 10:54:00 EDT, Weight Dosing Start Date: 06/29/23 Status: Ordered Start: 02-15-2023 take 1 tablet by boaz th three times daily as needed for anxiety Xanax 0.5 mg Tab 0.5 mg = 1 tab(s), Oral, TID, PRN for anxiety, # 90 tab(s), Refills(s) 0, Pharmacy: [facility], 154.9, cm, 10/29/22 12:09:00 EST, Height/Length Dosing, 59, kg, 10/29/22 12:09:00 EST, Weight Dosing Start Date: 02/15/23 Status: Ordered Start: 09-03-2022 take 1 tablet by boaz th three times daily as needed for anxiety Xanax 0.5 mg Tab 0.5 mg = 1 tab(s), Oral, TID, PRN for anxiety, # 90 tab(s), Refills(s) 0, Pharmacy: [facility], 155, cm, 09/03/22 9:37:00 EST, Height/Length Dosing, 60.7, kg, 09/03/22 9:37:00 EST, Weight Dosing Start Date: 09/03/22 Status: Ordered Start: 06-28-2022 take 1 tablet by boaz th at bedtime as needed for anxiety Xanax 0.25 mg Tab 0.25 mg = 1 tab(s), Oral, Bedtime, PRN as needed for anxiety, # 90 tab(s), Refills(s) 0, Pharmacy: [facility], 155, cm, 06/04/22 10:17:00 EDT, Height/Length Dosing, 58.4, kg, 06/04/22 10:17:00 EDT, Weight Dosing Start Date: 06/28/22 Status: Ordered Start: 03-09-2022 take 1 tablet by boaz th at bedtime as needed for anxiety Xanax 0.25 mg Tab 0.25 mg = 1 tab(s), Oral, Bedtime, PRN as needed for anxiety, # 90 tab(s), Refills(s) 0, Pharmacy: [facility], 155, cm, 03/03/22 9:08:00 EDT, Height/Length Dosing, 59.5, kg, 03/03/22 9:08:00 EDT, Weight Dosing Start Date: 03/09/22 Status: Ordered Start: 12-16-2021 take 1 tablet by boaz th at bedtime as needed for anxiety Xanax 1 mg Tab 1 mg = 1 tab(s), Oral, Bedtime, PRN for anxiety, 90 day supply DX f41.9, # 90 tab(s), Refills(s) 0, Pharmacy: [id number], 155, cm, 12/07/21 10:41:00 EDT, Height/Length Dosing, 61, kg, 12/05/21 13:30:00 EDT, Weight Dosing Start Date: 12/16/21 Status: Ordered Start: 09-03-2010 take 0.5 tablet by m outh once daily ALPRAZolam (XANAX) 1 mg ORAL tablet Take one-half (1/2) tablet daily. 0 09/03/2010 Active Xanax Active Comment on above: Take one-half (1/2) tablet daily. amoxicillin 875 mg / clavulanate 125 mg oral tablet (1 source) Penicillin-class Antibacterial Start: 08-10-20 End: 08-17-20 take 1 tablet by mouth every twelve hours Augmentin 875 mg oral tablet = 1 tab(s), Oral, q12hr, X 7 day(s), # 14 tab(s), Refills(s) 0, Pharmacy: [facility], 156, cm, 08/10/22 12:24:00 EST, Height/Length Dosing, 58.5, kg, 08/10/22 12:24:00 EST, Weight Dosing Start Date: 08/10/22 Stop Date: 08/17/22 Status: Ordered ascorbic acid 1000 mg oral tablet (20 sources) Vitamin C Start: 09-22-19 take 1000 mg by mouth once daily Vitamin C 1,000 mg, Oral, Daily, Refills(s) 0 Start Date: 09/22/21 Status: Ordered atorvastatin 10 mg oral tablet (20 sources) HMG-CoA Reductase Inhibitor Start: 02-16-20 take 1 tablet by mouth in the morning atorvastatin (Lipitor) 10 MG tablet Take 10 mg by mouth in the morning. 0 09/26/2022 Active Comment on above: Take 10 mg by mouth once daily. baclofen 10 mg oral tablet (20 sources) gamma-Aminobutyric Acid-ergic Agonist Start: 03-03-20 take 0.5-1 tablets by mouth three times daily as needed baclofen (Lioresal) 10 MG tablet TAKE 1/2 TO 1 TABLET BY MOUTH THREE TIMES DAILY NEEDED 0 02/16/2023 Active Calcium (20 sources) Phosphate Binder, Calcium Start: 09-22-19 Calcium 600+D See Instructions, Refill(s) 0, 2 daily Start Date: 09/22/21 Status: Ordered Calcium + D Acti ve calcium carbonate 1500 mg oral tablet (20 sources) Start: 02-15-2019 calcium (as carbonate) 600 mg oral tablet 1,200 mg = 2 tab(s), Oral, Daily, Prophylaxis Start Date: 02/15/19 Status: Ordered Calcium Carbonate-Vit D-Min (Calcium 600+D Plus Minerals) 600-400 MG-UNIT chewable tablet (1 source) Calcium Carbonate-Vit D-Min (Calcium 600+D Plus Minerals) 600-400 MG-UNIT chewable tablet 1 (one) time each day at the same time. 0 Active cephalexin 500 mg oral capsule (4 sources) Cephalosporin Antibacterial Start: 06-07-2023 End: 06-14-2023 take 1 capsule by mouth every eight hours Keflex 500 mg Cap 500 mg = 1 cap(s), Oral, q8hr, X 7 day(s), # 21 cap(s), Refills(s) 0, Pharmacy: [facility], 153, cm, 06/07/23 11:01:00 EDT, Height/Length Dosing, 61.8, kg, 06/07/23 11:01:00 EDT, Weight Dosing Start Date: 06/07/23 Stop Date: 06/14/23 Status: Ordered Start: 07-18-2013 take 1 capsule by [facility] three times daily Keflex 500 MG 1 capsule Orally TID for 5 day(s) Jun, Active citalopram 20 mg oral tablet (20 sources) Serotonin Reuptake Inhibitor Start: 02-28-2019 take 1 tablet by mouth in the morning citalopram (CeleXA) 20 MG tablet Take 20 mg by mouth in the morning. 0 09/25/2022 Active CeleXA Active Comment on above: Take 20 mg by mouth once daily. Restasis (20 sources) Calcineurin Inhibitor Immunosuppressant Start: 9 take 1 drop(s) into the eye(s) twice daily Restasis 1 drop(s), Eye-Both, BID, Refill(s) 0, Dry eyes Start Date: 03/13/19 Status: Ordered Restasis 0.05 % 1 into affected eye Ophthalmic Twice a day Active diclofenac sodium 0.01 mg/mg topical gel (2 sources) Nonsteroidal Anti-inflammatory Drug Start: 09-22-2023 diclofenac sodium 1 % gel Apply 2 g topically 0 09/22/2023 Active docosahexaenoic acid 120 mg / eicosapentaenoic acid 180 mg oral capsule (1 source) omega-3 (Fish Oil) 1000 MG capsule 1 capsule 1 (one) time each day at the same time. 0 Active docusate sodium 100 mg oral capsule (20 sources) Start: 05-05-2022 take 1 capsule by mouth twice daily as needed for constipation Dulcolax Stool Softener 100 mg oral capsule 100 mg = 1 cap(s), Oral, BID, PRN for constipation, # 20 cap(s), Refills(s) 0 Start Date: 05/05/22 Status: Ordered Start: 05-05-2022 Docusate Sodiu m (DSS) 100 MG capsule 1 (one) time each day at the same time. 0 05/05/2022 Active Estrogens, Conjugated (GROUP HOME) (2 sources) Estrogen Premarin Active Fish Oils (20 sources) Start: 9 take 1 capsule by mouth once daily Fish Oil 1000 mg oral capsule 1,000 mg = 1 cap(s), Oral, Daily, Refills(s) 0, Prophylaxis Start Date: 02/14/19 Status: Ordered Glucosamine (2 sources) Glucosamine Acti ve magnesium oxide 400 mg oral tablet (20 sources) Start: 9 take 1 tablet by mouth once daily magnesium oxide 400 mg Tab 400 mg = 1 tab(s), Oral, Daily, Refills(s) 0, Prophylaxis Start Date: 08/21/19 Status: Ordered melatonin 10 mg oral capsule (20 sources) Start: 0 take 1 capsule by mouth once daily at bedtime melatonin 10 mg oral capsule 10 mg = 1 cap(s), Oral, Once a day (at bedtime), Insomnia Start Date: 06/06/20 Status: Ordered minocycline 100 mg oral capsule (6 sources) Tetracycline-clas s Drug Start: 3 take 1 capsule by mouth once minocycline 100 mg Cap 100 mg = 1 cap(s), Oral, Daily, per [employer] Start Date: 03/17/23 Status: Ordered take 1 tablet by boaz every twelve hours Minocycline HCl 100 MG 1 tablet Orally e very 12 hrs for 10 day(s) Active MiraLax oral powder for reconstitution (19 sources) Start: 05-05-2022 MiraLax oral powder for reconstitution 17 gram, Oral, Daily, 255 gram, Refill(s) 1, dissolve in water before taking, [facility], 155, cm, 05/05/22 14:07:00 EDT, Height/Length Dosing, 58.4, kg, 05/05/22 14:07:00 EDT, Weight Dosing Start Date: 05/05/22 Status: Ordered Multiple Vitamins-Minerals (Multi Complete) capsule (1 source) Multiple Vitamins-Minerals (Multi Complete) capsule Orally 0 Active Multivitamin, Therapeutic w/ Minerals (20 sources) Start: 02-15-2019 take 1 tablet by mouth once daily Multivitamin, Therapeutic w/ Minerals 1 tab(s), Oral, Daily, Prophylaxis Start Date: 02/15/19 Status: Ordered Multivitamins (2 sources) Multivitamins Active mupirocin 0.02 mg/mg topical ointment (1 source) RNA Synthetase Inhibitor Antibacterial Start: 07-15-2023 End: 07-22-2023 mupirocin Top 2% Oint 1 jesus, Topical, BID for 7 day(s), 22 gm, Refill(s) 0, [facility], 156, cm, 07/15/23 11:32:00 EDT, Height/Length Dosing, 63.1, kg, 07/15/23 11:32:00 EDT, Weight Dosing Start Date: 07/15/23 Stop Date: 07/22/23 Status: Ordered 24 hr oxybutynin chloride 10 mg extended release oral tablet (12 sources) Cholinergic Muscarinic Antagonist Start: 03-29-2023 End: 03-28-2024 take 1 tablet by mouth every twenty-four hours in the morning oxybutynin XL (Ditropan-XL) 10 MG 24 hr tablet Indications: Urge incontinence of urine Take 1 tablet (10 mg) by mouth in the morning. 30 tablet 11 03/29/2023 03/28/2024 Active Start: 03-17-2023 take 1 tablet by mouth once ox ybutynin 10 mg ER Tab 10 mg = 1 tab(s), Oral, Daily, per [employer] Start Date: 03/17/23 Status: Ordered phenazopyridine hydrochloride 100 mg oral tablet (2 sources) Start: 06-07-2023 End: 06-10-2023 take 1 tablet by mouth three times daily Pyridium 100 mg Tab 100 mg = 1 tab(s), Oral, TID, X 3 day(s), # 9 tab(s), Refills(s) 0, Pharmacy: [facility], 153, cm, 06/07/23 11:01:00 EDT, Height/Length Dosing, 61.8, kg, 06/07/23 11:01:00 EDT, Weight Dosing Start Date: 06/07/23 Stop Date: 06/10/23 Status: Ordered polyethylene glycol 3350 [id number] mg powder for oral solution (6 sources) Osmotic Laxative Start: 05-05-2022 MiraLax oral powder for reconstitution 17 gram, Oral, Daily, 255 gram, Refill(s) 1, dissolve in water before taking, [facility], 155, cm, 05/05/22 14:07:00 EDT, Height/Length Dosing, 58.4, kg, 05/05/22 14:07:00 EDT, Weight Dosing Start Date: 05/05/22 Status: Ordered MiraLax 17 GM/SC OOP powder 1 (one) time each day at the same time. 0 Active sulfamethoxazole 800 mg / trimethoprim 160 mg oral tablet (1 source) Dihydrofolate Reductase Inhibitor Antibacterial, Sulfonamide Antimicrobial Start: 07-15-2023 End: 07-22-2023 take 1 tablet by mouth twice daily sulfamethoxazole-trimethoprim 800 mg-160 mg Tab 1 tab(s), Oral, BID for 7 day(s), 14 tab(s), Refill(s) 0, [facility], [facility], cm, 07/15/23 11:32:00 EDT, Height/Length Dosing, 63.1, kg, 07/15/23 11:32:00 EDT, Weight Dosing Start Date: 07/15/23 Stop Date: 07/22/23 Status: Ordered traZODone hydrochloride 50 mg oral tablet (20 sources) Serotonin Reuptake Inhibitor Start: 03-03-2022 take 1-2 tablets by mouth once daily at bedtime traZODONE 50 mg Tab See Instructions, 1 to 2 tab(s) Oral Once a day (at bedtime)., # 180 tab(s), Refills(s) 3, Pharmacy: [facility], 154.9, cm, 10/29/22 12:09:00 EST, Height/Length Dosing, 59, kg, 10/29/22 12:09:00 EST, Weight Dosing Start Date: 12/28/22 Status: Ordered Start: 01-14-2022 take 1 tablet by boaz th once daily at bedtime traZODONE 50 mg Tab 50 mg = 1 tab(s), Oral, Once a day (at bedtime), # 30 tab(s), Refills(s) 6, Pharmacy: [facility], 155, cm, 01/14/22 13:11:00 EDT, Height/Length Dosing, 61.9, kg, 01/14/22 13:11:00 EDT, Weight Dosing Start Date: 01/14/22 Status: Ordered turmeric extract 500 mg oral capsule (20 sources) Start: 06-06-2020 take 1 capsule by mouth once daily turmeric 500 mg oral capsule 500 mg = 1 cap(s), Oral, Daily, Pain Start Date: 06/06/20 Status: Ordered Start: 01-17-2018 take [address] [facility] once daily turmeric 400 mg cap Take 400 mg by mouth once daily. 0 01/17/2018 Active Comment on above: Take 400 mg by mouth once daily. zolpidem tartrate 10 mg oral tablet (3 sources) gamma-Aminobutyric Acid-ergic Agonist Start: 10-29-2022 End: 11-03-2022 take 1 tablet by mouth once daily at bedtime as needed for sleep Ambien 10 mg Tab 10 mg = 1 tab(s), Oral, Once a day (at bedtime), PRN for sleep, X 5 day(s), # 5 tab(s), Refills(s) 0, Pharmacy: [facility], 154.9, cm, 09/29/22 9:48:00 EST, Height/Length Dosing, 59, kg, 09/29/22 9:47:00 EST, Weight Dosing Start Date: 10/29/22 Stop Date: 11/03/22 Status: Ordered Start: 07-06-2022 take 1 tablet by [facility] once daily at bedtime as needed for sleep Ambien 5 mg Tab 5 mg = 1 tab(s), Oral, Once a day (at bedtime), PRN for sleep study, # 1 tab(s), Refills(s) 1, Pharmacy: [facility], 155, cm, 06/04/22 10:17:00 EDT, Height/Length Dosing, 58.4, kg, 06/04/22 10:17:00 EDT, Weight Dosing Start Date: 07/06/22 Status: Ordered Completed/Discontinued Medications Medication Drug Class(es) Dates Sig (Normalized) Sig (Original) betamethasone 3 mg/ml / betamethasone acetate 3 mg/ml injectable suspension (2 sources) Corticosteroid Start: 10-28-2023 End: 10-28-2023 betamethasone acetate-betamethas one sodium phosphate ([place]) injection 1 mL calcium carbonate 1500 mg / cholecalciferol 200 unt oral tablet (9 sources) Vitamin D Start: 09-03-2010 take 1 tablet by mouth once daily calcium carbonate 600 mg-cholecalciferol 200 units (CALCIUM 600 + D,3,) 600 mg(1,500mg) -200 unit ORAL Tab Take one(1) tablet daily. 0 09/03/2010 Active Comment on above: Take one(1) tablet d aily. cyanocobalamin, vitamin B-12, (VITAMIN B-12 SUBLINGUAL) (9 sources) cyanocobalamin, vitamin B-12, (VITAMIN B-12 SUBLINGUAL) ketorolac tromethamine 5 mg/ml ophthalmic solution (9 sources) Nonsteroidal Anti-inflammatory Drug, Cyclooxygenase Inhibitor Start: 03-22-2019 take 1 drop(s) into the eye(s) twice daily ketorolac (ACULAR) 0.5 % ophthalmic solution Use 1 Drop in both eyes twice daily. 1 03/22/2019 Active Comment on above: Use 1 Drop in both e yes twice daily. lactobacillus acidophilus [id number] unt oral capsule (9 sources) Start: 09-19-2017 take 1 capsule by mouth once daily Lactobacillus acidophilus (PROBIOTIC) 10 billion cell cap Take 1 capsule by mouth once daily. 0 09/19/2017 Active Comment on above: Take 1 capsule by [facility] once daily. 10 ml lidocaine hydrochloride 10 mg/ml injection (2 sources) Antiarrhythmic, Amide Local Anesthetic Start: 10-28-2023 End: 10-28-2023 lidocaine PF (Xylocaine) 1 % injection 3 mL Magnesium (10 sources) Start: 02-17-2018 take 1 tablet by mouth once daily Magnesium 250 mg tab Take 250 mg by mouth once daily. 0 02/17/2018 Active Magnesium 300 MG capsule 1 (one) time each day at the same time. 0 Active Comment on above: Take 250 mg by mouth once daily. methylPREDNISolone (2 sources) Corticosteroid Start: 02-19-2021 End: 06-06-2023 methylPREDNISolone (MEDROL, MIRIAM,) 4 mg Dose-Pack As Instructed per package 1 Package 0 02/19/2021 06/06/2023 Discontinued Start: 02-19-2021 methylPREDNISo lone (MEDROL, MIRIAM,) 4 mg Dose-Pack As Instructed per package 1 Package 0 02/19/2021 Active Comment on above: As Instructed per roger agee multivitamin (DAILY MULTI-VITAMIN) ORAL tablet (9 sources) Start: 0 take 1 tablet by mouth once daily multivitamin (DAILY MULTI-VITAMIN) ORAL tablet Take one(1) tablet daily. 0 09/03/2010 Active Comment on above: Take one(1) tablet d aily. Milton-3 Fatty Acids-Vitamin E (FISH OIL) 1,000 mg ORAL Cap (9 sources) Start: 0 take 1 tablet by mouth once daily Milton-3 Fatty Acids-Vitamin E (FISH OIL) 1,000 mg ORAL Cap Take one(1) tablet daily. 0 09/03/2010 Active Comment on above: Take one(1) tablet d aily. Problems Active Problems Problem Classification Problem Date Documented Da te Episodic/Chronic Anxiety disorders (20 sources) Generalized anxiety disorder; Translations: [Generalized anxiety disorder] Onset: 2 Chronic Diseases of white blood cells (20 sources) Leukopenia; Translations: [Decreased white blood cell count, unspecified] Onset: 2 Chronic Genitourinary symptoms and ill-defined conditions (1 source) Urinary incontinence; Translations: [Unspecified urinary incontinence] Onset: 3 03-29-2023 Chronic Nonmalignant breast conditions (1 source) Fibrocystic disease of breast; Translations: [Diffuse cystic mastopathy of unspecified breast] Onset: 3 03-29-2023 Chronic Osteoarthritis (20 sources) Osteoarthritis; Translations: [Osteoarthritis of right knee joint] Onset: 9 08-11-2020 Chronic Other acquired deformities (9 sources) Lumbar spondylolisthesis; Translations: [Spondylolisthesis, lumbar region] 06-23-2023 Episodic Other acquired deformities (2 sources) Spondylolisthesis, lumbar region Episodic Other and unspecified benign neoplasm (20 sources) Polyp of colon 06-06-2020 Episodic Other connective tissue disease (5 sources) Other muscle spasm; Translations: [OTHER MUSCLE SPASM] Onset: 3 Episodic Other connective tissue disease (1 source) Disorder of tendon; Translations: [Unspecified disorder of synovium and tendon, right thigh] 08-25-2023 Episodic Other connective tissue disease (1 source) Trochanteric bursitis of right hip; Translations: [Trochanteric bursitis, right hip] 08-25-2023 Episodic Other connective tissue disease (1 source) Pain in right hand; Translations: [Pain in right hand] 10-28-2023 Episodic Other connective tissue disease (2 sources) Iliotibial band friction syndrome of right knee; Translations: [Iliotibial band syndrome, right leg] Onset: 3 10-28-2023 Episodic Other diseases of kidney and ureters (1 source) Acquired renal cyst without neoplastic change; Translations: [Cyst of kidney, acquired] Onset: 3 Episodic Other diseases of kidney and ureters (3 sources) Cyst of kidney 08-30-2023 Episodic Other ear and sense organ disorders (20 sources) Decreased hearing ; Translations: [Unspecified hearing loss, unspecified ear] Onset: 3 05-05-2022 Chronic Other ear and sense organ disorders (2 sources) Hearing loss; Translations: [Unspecified hearing loss, unspecified ear] Onset: 2 Chronic Other ear and sense organ disorders (1 source) Sensorineural hearing loss, bilateral; Translations: [Sensorineural hearing loss, bilateral] Onset: 3 03-29-2023 Chronic Other gastrointestinal disorders (2 sources) Constipation, unspecified; Translations: [Constipation, unspecified] Onset: 2 Episodic Other inflammatory condition of skin (1 source) Perioral dermatitis; Translations: [Perioral dermatitis] Onset: 3 03-29-2023 Chronic Other liver diseases (1 source) Alkaline phosphatase raised 09-22-2023 Episodic Other nervous system disorders (4 sources) Other specified mononeuropathies of right lower limb; Translations: [OTH SPEC MONONEUROPATH RT LOW LIMB] Onset: 3 Chronic Other nervous system disorders (1 source) Other chronic pain; Translations: [OTHER CHRONIC PAIN] Onset: 3 Chronic Other nervous system disorders (1 source) Other specified mononeuropathies; Translations: [OTHER SPECIFIED MONONEUROPATHIES] Onset: 3 Chronic Other nervous system disorders (10 sources) Reardon's metatarsalgia; Translations: [Lesion of plantar nerve, unspecified lower limb] Onset: 5 08-19-2015 Chronic Other non-traumatic joint disorders (20 sources) Arthralgia of the ankle and/or foot 05-05-2022 Episodic Other non-traumatic joint disorders (5 sources) Pain in right hip; Translations: [PAIN IN RIGHT HIP] Onset: 3 Episodic Other non-traumatic joint disorders (2 sources) Pain in right hip joint; Translations: [Pain in right hip] 08-23-2023 Episodic Other nutritional; endocrine; and metabolic disorders (5 sources) Overweight in adulthood with body mass index of 25 or more but less than 30; Translations: [Body mass index (BMI) 25.0-25.9, adult] Onset: 2 Episodic Other nutritional; endocrine; and metabolic disorders (1 source) Overweight; Translations: [Overweight] Onset: 3 Episodic Other upper respiratory disease (8 sources) Acquired deviated nasal septum; Translations: [Acquired deviated nasal septum] 06-23-2023 Episodic Other upper respiratory infections (1 source) Acute sinusitis, unspecified; Translations: [Acute sinusitis, unspecified] Onset: 2 Episodic Residual codes; unclassified (20 sources) Obstructive sleep apnea syndrome; Translations: [Obstructive sleep apnea (adult) (pediatric)] Onset: 2 05-05-2022 Chronic Residual codes; unclassified (2 sources) Body mass index 20-24 - normal; Translations: [Body mass index (BMI) 24.0-24.9, adult] Onset: 2 Episodic Residual codes; unclassified (1 source) Patient encounter status; Translations: [Other specified health status] Onset: 2 Episodic Skin and subcutaneous tissue infections (1 source) Cellulitis of finger; Translations: [Cellulitis of unspecified finger] Onset: 3 Episodic Spondylosis; intervertebral disc disorders; other back problems (20 sources) Sacroiliitis, not elsewhere classified; Translations: [Other intervertebral disc degeneration, lumbar region] Onset: 2 Chronic Unclassified (2 sources) Encounter for cosmetic surgery / Z41.1(ICD-10) Onset: 7 Unclassified (2 sources) Ptosis of breast / N64.81(ICD-10) Onset: 7 Unclassified (2 sources) Capsular contracture of breast implant, initial encounter / T85.44XA(ICD-10) Onset: 7 Unclassified (7 sources) Non-smoker 05-05-2022 Unclassified (1 source) LOW BACK PAIN, UNSPECIFIED; Translations: [LOW BACK PAIN, UNSPECIFIED] Onset: 3 Unclassified (8 sources) Plastic surgery; Translations: [Plastic surgery, other] 06-23-2023 Unclassified (1 source) Other intervertebral disc degeneration, lumbar region; Translations: [Other intervertebral disc degeneration, lumbar region] Onset: 3 Unclassified (1 source) Encounter for screening mammogram for malignant neoplasm of breast; Translations: [Encounter for screening mammogram for malignant neoplasm of breast] Onset: 3 Urinary tract infections (1 source) Urinary tract infectious disease; Translations: [Urinary tract infection, site not specified] Onset: 3 Episodic Past or Other Problems Problem Classification Problem Date Documented Da te Episodic/Chronic Allergic reactions (20 sources) Eczema; Translations: [Dermatitis, unspecified] Onset: 03-29-2023 02-14-2019 Episodic Disorders of lipid metabolism (20 sources) Mixed hyperlipidemia; Translations: [Mixed hyperlipidemia] Onset: 03-03-2022 Resolved: 03-02-2023 08-11-2020 Chronic Genitourinary symptoms and ill-defined conditions (20 sources) Abnormal urine; Translations: [Urine screening abnormal] Onset: 05-05-2022 05-05-2022 Episodic Immunizations and screening for infectious disease (20 sources) Anti-nuclear factor positive; Translations: [Other specified abnormal immunological findings in serum] Onset: 03-29-2023 02-14-2019 Episodic Joint disorders and dislocations; trauma-related (16 sources) Cuboid syndrome; Translations: [Subluxation of tarsal joint of right foot, initial encounter] Onset: 09-29-2017 09-29-2017 Episodic Other bone disease and musculoskeletal deformities (20 sources) Osteopenia; Translations: [Other specified disorders of bone density and structure, unspecified site] Onset: 03-02-2023 02-14-2019 Episodic Other connective tissue disease (20 sources) Bursitis of knee; Translations: [Other bursitis of knee, unspecified knee] Onset: 03-29-2023 02-14-2019 Episodic Other connective tissue disease (20 sources) Biceps tendinitis; Translations: [Bicipital tendinitis, unspecified shoulder] Onset: 03-29-2023 05-05-2022 Episodic Other connective tissue disease (1 source) Trochanteric bursitis, right hip; Translations: [TROCHANTERIC BURSITIS RIGHT HIP] Onset: 10-14-2022 Episodic Other connective tissue disease (9 sources) Pain in buttock; Translations: [Myalgia, other site] Onset: 12-02-2018 12-02-2018 Episodic Other connective tissue disease (9 sources) Triggering of digit; Translations: [Trigger finger, right ring finger] Onset: 06-28-2019 06-28-2019 Episodic Other connective tissue disease (10 sources) Trigger finger of right hand; Translations: [Trigger finger, unspecified finger] Onset: 06-28-2019 11-22-2019 Episodic Other connective tissue disease (1 source) Plantar fascial fibromatosis; Translations: [Plantar fascial fibromatosis] Onset: 03-29-2023 03-29-2023 Episodic Other ear and sense organ disorders (20 sources) Bilateral tinnitus; Translations: [Tinnitus, bilateral] Onset: 05-05-2022 05-05-2022 Episodic Other gastrointestinal disorders (20 sources) Constipation; Translations: [Constipation, unspecified] Onset: 03-29-2023 05-05-2022 Episodic Other infections; including parasitic (20 sources) History of herpes zoster; Translations: [Personal history of other infectious and parasitic diseases] Onset: 03-29-2023 08-25-2021 Episodic Other non-epithelial cancer of skin (20 sources) Basal cell carcinoma of nose; Translations: [History of malignant basal cell neoplasm of skin] Onset: 03-29-2023 05-05-2022 Episodic Other non-traumatic joint disorders (10 sources) Shoulder pain; Translations: [Pain in unspecified shoulder] Onset: 08-20-2014 08-20-2014 Episodic Other non-traumatic joint disorders (10 sources) Pain in right knee; Translations: [Pain in joint, lower leg] Onset: 06-11-2019 06-11-2019 Episodic Other screening for suspected conditions (not mental disorders or infectious disease) (1 source) Other abnormal and inconclusive findings on diagnostic imaging of breast; Translations: [Other abnormal and inconclusive findings on diagnostic imaging of breast] Onset: 02-21-2023 Episodic Residual codes; unclassified (20 sources) Insomnia; Translations: [Insomnia, unspecified] Onset: 01-14-2022 Episodic Spondylosis; intervertebral disc disorders; other back problems (20 sources) Low back pain; Translations: [Low back pain] Onset: 07-18-2019 Resolved: 03-02-2023 08-11-2020 Episodic Sprains and strains (14 sources) Strain of muscle(s) and tendon(s) of the rotator cuff of right shoulder, initial encounter; Translations: [Rotator cuff (capsule) sprain] Onset: 2017 Resolved: 07-29-2023 2017 Episodic Unclassified (20 sources) Body mass index 20-24 - normal 05-05-2022 Results Test Name Value Interpretation Reference Range Facility Prescriptions/Work Noteson 0 11-28-2023 Prescriptions/Work Notes [id number]#1.00TIFF [facility] Patient Eval Forms Officeon 11-23-2023 Patient Eval Forms Office [id number]#1.00TIFF [facility] Consenton 11-22-2023 Consent [id number]#1.00TIFF [facility] Consent for Treatmenton Consent for Treatment [id number]#1.00TIFF [facility] Physician Orderon 11-21-2023 Physician Order [id number]#1.00TIFF [facility] Sleep Studieson 11-17-2023 Sleep Studies [id number]#1.00TIFF [facility] Insurance Correspondenceon 0 11-16-2023 Insurance Correspondence [id number]#1.00TIFF [facility] Consultation Noteon 10-31-19 Consultation Note [id number]#1.00TIFF Normal [facility] Prescriptions/Work Noteson 0 10-31-2023 Prescriptions/Work Notes [id number]#1.00TIFF [facility] XR Lumbar spine 2 or 3 Views on 10-31-2023 Imaging Result: X-rays of the lumbar spine , a total of 2 views with permanent images saved to the record, show the spondylosis and degenerative disc disease. No fracture. [facility] Obsorb L Inj/Asp: R kneeon 10-28-19 Shruti Leiva MA 2023 7:52 AM L Inj/Asp: R knee on 10/28/2023 9:52 AM Indications: pain and diagnostic evaluation Details: 22 G needle Medications: 1 mL betamethasone acetate-betamethasone sodium phosphate 6 (3-3) MG/ML; 3 mL lidocaine PF 1 % Consent was given by the patient. [facility] Obsorb XR Lumbar spine 2 or 3 Views on 10-28-2023 Radiology Study observation (narrative) [facility] Consent for Treatmenton 09-21 Consent for Treatment [id number]#1.00TIFF [facility] Consent for Treatment [id number]#1.00TIFF [facility] GGTon 10-19-2023 GGT 18 Int._Unit/L Normal 6-48 [facility] Comment on above: Performed By: #### 2 [id number], [id number] ####[facility] [address] [place] [address] Hep Func Panelon 10-19-2023 Albumin [Mass/Vol] 4.5 g/dL Normal 3.3-5.0 [facility] Comment on above: Performed By: #### 2 [id number], [id number] ####[facility] [address] [place] [address] Albumin/Globulin [Mass ratio] 1.6 {ratio} Normal 1.1-2.2 [facility] Comment on above: Performed By: #### 2 686123, [id number] ####[facility] [address] [place] [address] Alk Phos 62 Int._Unit/L Normal 21-98 [facility] Comment on above: Performed By: #### 2 [id number], [id number] ####[facility] [address] [place] [address] ALT 21 Int._Unit/L Normal 6-46 [facility] Comment on above: Performed By: #### 2 [id number], [id number] ####[facility] [address] [place] [address] AST 25 Int._Unit/L Normal 5-43 [facility] Comment on above: Performed By: #### 2 882539, [id number] ####[facility] [address] [place] [address] Bili Direct 0.1 mg/dL Normal 0.0-0.4 [facility] Comment on above: Performed By: #### 2 768237, [id number] ####[facility] [address] [place] [address] Bili Indirect 0.2 mg/dL Normal 0.1-0.9 [facility] Comment on above: Performed By: #### 2 975056, 5983229 ####[facility] [address] [place] [address] Bili Total 0.3 mg/dL Normal 0.0-1.1 [facility] Comment on above: Performed By: #### 2 007070, [id number] ####[facility] [address] [place] [address] Globulin (S) [Mass/Vol] 2.8 g/dL Normal 1.4-4.0 [facility] Comment on above: Performed By: #### 2 805245, 0693562 ####[facility] [address] [place] [address] Protein [Mass/Vol] 7.3 g/dL Normal 6.0-7.8 [facility] Comment on above: Performed By: #### 2 672982, 1473586 ####[facility] [address] [place] [address] Patient Eval Forms Officeon 10-19-2023 Patient Eval Forms Office [id number]#1.00TIFF [facility] Prescriptions/Work Noteson 0 10-19-2023 Prescriptions/Work Notes [id number]#1.00TIFF [facility] Sleep Office/Clinic Noteon 0 10-19-2023 Sleep Office/Clinic Note History of Present Illness Here for follow-up for her underlying obstructive sleep apnea. She continues to use CPAP at a pressure of 6 cm but had noted that her events are higher on her jesus at home. Her also reports that now she has mild snoring despite using her CPAP. Of note that the patient has had multiple pressure changes over the last few visits. Originally she was at higher pressures but with decreased due to elevated central events and currently using CPAP at a pressure of 6 cm via a fullface mask. She reports that she never had issues with fatigue and daytime sleepiness and does not feel any different with the use of the CPAP. Review of Systems Constitutional: no fever, no chills, no sweats, no weakness Skin: no Jaundice, no rash, no lesions, no petechiae ENT: no ear pain, no sore throat, no congestion, no hoarseness Respiratory: Denies shortness of breath, cough or wheezing Cardiovascular: no chest pain, no palpitations, no edema Gastrointestinal: no nausea, no vomiting, no diarrhea, no GI bleeding Genitourinary: no dysuria, no hematuria, no discharge, no pain Musculoskeletal: no back pain, no trauma Neurologic: no headache, no dizziness, no numbness, no weakness Psychiatric: no irritability, no mood swings/depression. Heme/Lymph: no bleeding tendency, no bruising tendency, no petechiae, no swollen nodes Allergy/Immunologic: no seasonal allergies, no food allergies, no recurrent infections, no impaired immunity Additional ROS info: Except as noted in the above Review of Systems and in the History of Present Illness all other systems have been reviewed and are negative or noncontributory. Physical Exam General: Awake and alert in no acute distress HEENT: NC, AT. Prolonged soft palate Neck: Supple no JVD Assessment/Plan 1. KAYLA (obstructive sleep apnea) (G47.33: Obstructive sleep apnea (adult) (pediatric)) Her CPAP download from September 18, 2023 till October 17, 2023 was reviewed today. She has excellent compliance with CPAP however has an elevated estimated apnea-hypopnea index of 17.5/hour despite minimal leakage. Most of those events appear to be obstructive in nature based on her CPAP report. Previously with emergence of central events on higher pressures. I have given the patient the option of a retitration study versus a trial of an auto titrating CPAP mode. She wants to avoid going back to the sleep lab which is reasonable. I will start the patient on an auto titrating CPAP mode with a pressure range of 5 to 15 cm and see her back after a few weeks to reevaluate her treatment plan. She will call me in the meantime if any issues. Follow-up With When Contact Information Stuart NG, Babar Peace, ASHLY CROCKETT Within 3 months [address] [facility] [place] [address]- Additional Instructions: Problem List/Past Medical History Ongoing Alkaline phosphatase elevation GALINDO positive Anserine bursitis Arthralgia of the ankle and/or foot Biceps tendinitis Constipation Eczema Generalized anxiety disorder History of malignant basal cell neoplasm of skin Hyperlipidemia Insomnia Low back pain Lumbar radiculopathy Lumbar spondylolisthesis KAYLA (obstructive sleep apnea) Osteoarthritis Osteopenia Tinnitus of both ears Historical BMI 24.0-24.9, adult Colon polyps Procedure/Surgical History Injection of facet joint using fluoroscopic guidance (11/30/2021), Epidural injection of lumbar spine using fluoroscopic guidance (10/27/2021), Epidural injection of lumbar spine using fluoroscopic guidance (10/28/2020), Epidural injection of lumbar spine using fluoroscopic guidance (08/19/2020), Arthroscopy of knee (06/13/2020), Colonoscopy (03/18/2020), Esophagogastroduodenoscopy (03/18/2020), Cataract extraction and insertion of intraocular lens (03/27/2019), Cataract extraction and insertion of intraocular lens (03/13/2019), Excision of basal cell carcinoma (2015), Blepharoplasty (2012), Colonoscopy (2010), nose surgery (2010), Rotator cuff repair. Medications atorvastatin 10 mg Tab, 10 mg= 1 tab(s), Oral, Daily, 3 refills baclofen 10 mg Tab, 10 mg= 1 tab(s), Oral, Bedtime calcium (as carbonate) 600 mg oral tablet, 1200 mg= 2 tab(s), Oral, Daily Calcium 600+D, See Instructions CeleXA 20 mg Tab, 20 mg= 1 tab(s), Oral, Daily, 3 refills diclofenac topical 1% gel, 2 gm, Topical, QID, PRN, 6 refills Dulcolax Stool Softener 100 mg oral capsule, 100 mg= 1 cap(s), Oral, BID, PRN Fish Oil 1000 mg oral capsule, 1000 mg= 1 cap(s), Oral, Daily magnesium oxide 400 mg Tab, 400 mg= 1 tab(s), Oral, Daily MiraLax oral powder for reconstitution, 17 gm, Oral, Daily, 1 refills Multivitamin, Therapeutic w/ Minerals, 1 tab(s), Oral, Daily oxybutynin 10 mg ER Tab, 10 mg= 1 tab(s), Oral, Daily Restasis, 1 drop(s), Eye-Both, BID traZODONE 50 mg Tab, See Instructions, 3 refills turmeric 500 mg oral capsule, 500 mg= 1 cap(s), Oral, Daily Vitamin C, 1000 mg, Oral, Daily Xanax 0.5 mg Tab, 0.5 mg= (more content not included)... [facility] Comment on above: Result Comment: Elec tronically Signed By: Stuart NG, Babar Peace\.br\Date and Time Signed: 10/19/23 11:19 EST Pre-Certification Formon Pre-Certification Form [id number]#1.00TIFF [facility] Pre-Certification Formon Pre-Certification Form [id number]#1.00TIFF Normal [facility] Office/Clini c Noteon 09-22-2023 [facility] Medicine Office/Clinic Note Chief Complaint Patient here for 6 month f/u on chol, anxiety, insomnia--had labs done. Tested positve for Covid 2 weeks ago. History of Present Illness Here for med follow up. She has been feeling ok She did have Covid around [place] but feels fine now. She has anxiety and insomnia. She has been on trazodone and Xanax. Last appt she was wanting to wean off but did not. Review of Systems PHQ Score Initial Depression Screen Score: 1 SCORE Physical Exam Vitals & Measurements T: 36.8 ?C(Oral) HR: 74(Peripheral) BP: 134/70 SpO2: 98% HT: 61 in HT: 155 cm WT: 62.3 kg WT: 137.06 lb BMI: 25.93 General: Well developed, well nourished, in no acute distress Eyes: Pupils equal, round, and reactive to light. Conjunctivae and sclerae normal, and extraocular movements intact Ears: TM clear, grossly normal hearing Nose: No deformity, discharge, inflammation, or lesions Mouth: MMM. Oropharynx and posterior pharynx without lesions or exudates. Tongue WNL Neck: Neck supple. No lymphadenopathy. Trachea midline. No thyroid, masses, tenderness, or enlargement noted. No bruit. Lungs: Normal respiratory effort and clear to auscultation Cardio: Regular rate and rhythm, normal S1 and S2, no murmur, no rub Abdomen: Soft, non-distended, non-tender Musculoskeletal: No joint swelling or synovitis noted Extremity: -no edema noted. Neurologic: CN 2-12 intact, no focal motor or sensory defects noted. Skin: _varicose veins Mental Status: Alert and oriented x3. Normal mood and affect Assessment/Plan 1. Generalized anxiety disorder (F41.1: Generalized anxiety disorder) 09/22/2023 08:50:54 I certify that I have reviewed the [place]AR[place] report and all PDMP information in this chart. She has been on Xanax prn 2. Insomnia (G47.00: Insomnia, unspecified) 09/22/2023 08:51:10 I certify that I have reviewed the OAR[place] report and all PDMP information in this chart. She has been on Xanx prn and trazodone 3. Hyperlipidemia (E78.2: Mixed hyperlipidemia) Chol: 176 mg/dL (09/17/23 06:23:00) HDL: 64 mg/dL (09/17/23 06:23:00) LDL Direct: 98 mg/dL (09/17/23 06:23:00) Tri mg/dL (09/17/23 06:23:00) VLDL: 12 mg/dL (09/17/23 06:23:00) stay on atorvastatin 4. Low back pain (M54.5: Low back pain) per pain management 5. KAYLA (obstructive sleep apnea) (G47.33: Obstructive sleep apnea (adult) (pediatric)) She is on CPAP and it is benefitting her. 6. Adult BMI 25.0-25.9 kg/sq m (Z68.25: Body mass index [BMI] 25.0-25.9, adult) The standard range for ages 18 and older is >=18.5 and < 25 kg/m2. Your BMI today was above this range, this falls in the overweight to obese category and there are medical benefits to weight loss. We can offer counselling, referral, and/or medical support in addressing this problem. Your BMI and weight management will be followed at subsequent visits. Ordered: Body Mass Index (BMI) documented 3008F Colorectal CA screening results documented and reviewed 3017F Current tobacco non-user 1036F Influenza immunization administered or previously received 4274F Patient screen for fall risk: no falls in last year or 1 fall with no injury in last year 1101F Pneumonia Vax administered or previously received 4040F Screening mammography documented and reviewed 3014F 7. Overweight (E66.3: Overweight) 8. Alkaline phosphatase elevation (R74.8: Abnormal levels of other serum enzymes) may be from Covid or Lipitor or Alleve Will repeat in 2 to 3 weeks Ordered: GGT Hepatic Function Panel 9. Arthralgia of the ankle and/or foot (M79.669: Pain in unspecified lower leg) will send in diclofenac podiatry gave it to her originally 10. Osteoarthritis (M19.90: Unspecified osteoarthritis, unspecified site) Orders: diclofenac topical, 2 gm, Topical, QID Pain, 200 gm, Refill(s) 6, [facility], 155, cm, 09/22/23 9:34:00 EST, Height/Length Dosing, 62.3, kg, 09/22/23 9:34:00 EST, Weight Dosing Follow-up With When Contact Information MICAELA NG, Simona Webb, YUSEF In 6 months [facility] [address], [place] [address]- Additional Instructions: Patient Education Insomnia Problem List/Past Medical History Ongoing Alkaline phosphatase elevation GALINDO positive Anserine bursitis Arthralgia of the ankle and/or foot Biceps tendinitis Constipation Eczema Generalized anxiety disorder History of malignant basal cell neoplasm of skin Hyperlipidemia Insomnia Low back pain Lumbar radiculopathy Lumbar spondylolisthesis KAYLA (obstructive sleep apnea) Osteoarthritis Osteopenia Tinnitus of both ears Historical BMI 24.0-24.9, adult Colon polyps Procedure/Surgical History Injection of facet joint using fluoroscopic guidance (11/30/2021), Epidural injection of lumbar spine using fluoroscopic guidance (10/27/2021), Epidural injection of lumbar spine using fluoroscopic guidance (10/28/2020), Epidural injection of lumbar spine using fluoroscopic guidance (08/19 (more content not included)... [facility] Comment on above: Result Comment: Elec tronically Signed By: MICAELA NG, Simona Webb\.br\Date and Time Signed: 09/22/23 09:56 EST Operative Reporton Operative Report SURGERY DATE: 2023 PREOPERATIVE DIAGNOSIS: Right hip labral tear POSTOPERATIVE DIAGNOSIS: Right hip labral tear OPERATION: Right hip arthrography for corticosteroid injection ANESTHESIA: 1% lidocaine plain INJECTED SOLUTION: 1 cc, 40 mg, Kenalog with 2 cc 1% lidocaine plain SPECIMEN: None COMPLICATIONS: None DRAINS: None HISTORY/OPERATIVE INDICATIONS: The patient is a 73-year-old female who presents complaining of pain, difficulty about the right hip and groin area. The patient is found to have osteoarthritis that is clinically significant. We did discuss all options conservative and surgical and the patient does opt for the above procedure. The procedure is undertaken this day. PROCEDURE: The patient is met in the [facility]. The patient is placed supine on the fluoroscopic table. Approximate site of injection is identified and localized with the fluoroscopic unit. This area is sterilely prepped and draped in the usual surgical fashion at which time the area is anesthetized with 1% lidocaine plain. At this point, the arthrography is performed. A 22 gauge spinal needle is then taken directly down onto the anterior femoral neck in a subcapital position. A palpable release of the capsule is realized. A small amount of Isovue-300 radiologic dye is then injected intracapsular to verify this position. At this point, the hip is injected with the above solution. The needle is withdrawn. No bleeding or hematoma formation. The patient will be discharged from the [facility] here today. Darlene Patel Dictated: 09/21/2023 [id number] Transcribed: 09/21/2023 cc:Simona Andres M.D. [facility] Comment on above: Result Comment: Elec tronically Signed By: Raudel Evans DO\.br\Date and Time Signed: 09/22/23 10:50 EST Patient Educationon 09-22-19 24 Patient Education Mental and Behaviora Health Insomnia Insomnia is a sleep disorder that makes it difficult to fall asleep or stay asleep. Insomnia can cause fatigue, low energy, difficulty concentrating, mood swings, and poor performance at work or school. There are three different ways to classify insomnia: ? Difficulty falling asleep. ? Difficulty staying asleep. ? Waking up too early in the morning. Any type of insomnia can be long-term (chronic) or short-term (acute). Both are common. Short-term insomnia usually lasts for 3 months or less. Chronic insomnia occurs at least three times a week for longer than 3 months. What are the causes? Insomnia may be caused by another condition, situation, or substance, such as: ? Having certain mental health conditions, such as anxiety and depression. ? Using caffeine, alcohol, tobacco, or drugs. ? Having gastrointestinal conditions, such as gastroesophageal reflux disease (GERD). ? Having certain medical conditions. These include: ? Asthma. ? Alzheimer's disease. ? Stroke. ? Chronic pain. ? An overactive thyroid gland (hyperthyroidism). ? Other sleep disorders, such as restless legs syndrome and sleep apnea. ? Menopause. Sometimes, the cause of insomnia may not be known. What increases the risk? Risk factors for insomnia include: ? Gender. Females are affected more often than males. ? Age. Insomnia is more common as people get older. ? Stress and certain medical and mental health conditions. ? Lack of exercise. ? Having an irregular work schedule. This may include working night shifts and traveling between different time zones. What are the signs or symptoms? If you have insomnia, the main symptom is having trouble falling asleep or having trouble staying asleep. This may lead to other symptoms, such as: ? Feeling tired or having low energy. ? Feeling nervous about going to sleep. ? Not feeling rested in the morning. ? Having trouble concentrating. ? Feeling irritable, anxious, or depressed. How is this diagnosed? This condition may be diagnosed based on: ? Your symptoms and medical history. Your health care provider may ask about: ? Your sleep habits. ? Any medical conditions you have. ? Your mental health. ? A physical exam. How is this treated? Treatment for insomnia depends on the cause. Treatment may focus on treating an underlying condition that is causing the insomnia. Treatment may also include: ? Medicines to help you sleep. ? Counseling or therapy. ? Lifestyle adjustments to help you sleep better. Follow these instructions at home: Eating and drinking ? Limit or avoid alcohol, caffeinated beverages, and products that contain nicotine and tobacco, especially close to bedtime. These can disrupt your sleep. ? Do not eat a large meal or eat spicy foods right before bedtime. This can lead to digestive discomfort that can make it hard for you to sleep. Sleep habits ? Keep a sleep diary to help you and your health care provider figure out what could be causing your insomnia. Write down: ? When you sleep. ? When you wake up during the night. ? How well you sleep and how rested you feel the next day. ? Any side effects of medicines you are taking. ? What you eat and drink. ? Make your bedroom a dark, comfortable place where it is easy to fall asleep. ? Put up shades or blackout curtains to block light from outside. ? Use a white noise machine to block noise. ? Keep the temperature cool. ? Limit screen use before bedtime. This includes: ? Not watching TV. ? Not using your smartphone, tablet, or computer. ? Stick to a routine that includes going to bed and waking up at the same times every day and night. This can help you fall asleep faster. Consider making a quiet activity, such as reading, part of your nighttime routine. ? Try to avoid taking naps during the day so that you sleep better at night. ? Get out of bed if you are still awake after 15 minutes of trying to sleep. Keep the lights down, but try reading or doing a quiet activity. When you feel sleepy, go back to bed. General instructions ? Take wzjj-wok-dslzfjb and prescription medicines only as told by your health care provider. ? Exercise regularly as told by your health care provider. However, avoid exercising in the hours right before bedtime. ? Use relaxation techniques to manage stress. Ask your health care provider to suggest some techniques that may work well for you. These may include: ? Breathing exercises. ? Routines to release muscle tension. ? Visualizing peaceful scenes. ? Make sure that you drive carefully. Do not drive if you feel very sleepy. ? Keep all follow-up visits. This is important. Contact a health care provider if: ? You are tired throughout the day. ? You have trouble in your daily routine due to sleepiness. ? You continue to have sleep problems, or your sleep prob (more content not included)... [facility] Consent for Treatmenton Consent for Treatment [id number] Normal [facility] RAD - Consent to Procedureon 09-21-2023 RAD - Consent to Procedure [id number] Normal [facility] Auto Diffon 09-17-2023 Basophils/100 WBC (Bld) 0.7 % Normal 0.0-2.0 [facility] Comment on above: Order Comment: Order Added by Discern Expert. Performed By: #### 2 482077, 2220902, 4146825, 61709615, 7622519 #### [facility] [address] [place] [address] Basophils/Leukocyte s Auto (Bld) [Pure # fraction] 0.0 E9/L Normal 0.0-0.2 [facility] Comment on above: Order Comment: Order Added by Discern Expert. Performed By: #### 2 664611, 5537924, 3729245, 84407325, 4207790 #### [facility] [address] [place] [address] Eosinophils/100 WBC (Bld) 3.9 % Normal 0.0-8.0 [facility] Comment on above: Order Comment: Order Added by Discern Expert. Performed By: #### 2 859752, 3252836, 3161391, 48521548, 2192590 #### [facility] [address] [place] [address] Eosinophils/Leukocy leonel Auto (Bld) [Pure # fraction] 0.2 E9/L Normal 0.0-0.5 [facility] Comment on above: Order Comment: Order Added by Discern Expert. Performed By: #### 2 496265, 8806074, 8596964, 40270138, 6035690 #### [facility] [address] [place] [address] Lymphocytes/100 WBC (Bld) 35.3 % Normal 14.0-50.0 [facility] Comment on above: Order Comment: Order Added by Yannick Expert. Performed By: #### 2 078319, 9298223, 9037796, 75979345, 2116358 #### [facility] [address] [place] [address] Lymphocytes/Leukocy leonel Auto (Bld) [Pure # fraction] 1.6 E9/L Normal 1.0-4.0 [facility] Comment on above: Order Comment: Order Added by Discern Expert. Performed By: #### 2 504910, 1734813, 8887837, 04666240, 4328082 #### [facility] [address] [place] [address] Monocytes/100 WBC (Bld) 9.9 % Normal 4.0-14.0 [facility] Comment on above: Order Comment: Order Added by Discern Expert. Performed By: #### 2 833552, 9677770, 1841197, 30512659, 1283307 #### [facility] [address] [place] [address] Monocytes/Leukocyte s Auto (Bld) [Pure # fraction] 0.4 E9/L Normal 0.2-1.0 [facility] Comment on above: Order Comment: Order Added by Discern Expert. Performed By: #### 2 363085, 4589025, 3131846, 81920419, 0373982 #### [facility] [address] [place] [address] Neutrophils/100 WBC (Bld) 50.2 % Normal 36.0-75.0 [facility] Comment on above: Order Comment: Order Added by Discern Expert. Performed By: #### 2 230311, 3660584, 1670779, 69539199, 8709045 #### [facility] [address] [place] [address] Neutrophils/Leukocy leonel Auto (Bld) [Pure # fraction] 2.3 E9/L Normal 2.0-7.5 [facility] Comment on above: Order Comment: Order Added by Discern Expert. Performed By: #### 2 857292, 1803255, 0800840, 45150605, 7112431 #### [facility] [address] [place] [address] CBC w/ Auto Diffon 3 Erythrocyte distribution width (RBC) [Ratio] 13.1 % Normal 10.9-14.2 [facility] Comment on above: Performed By: #### 2 707556, 2746371, 7278279, 54134969, 6250475 #### [facility] [address] [place] [address] Hematocrit (Bld) [Volume fraction] 38.5 % Normal 34.0-46.0 [facility] Comment on above: Performed By: #### 2 559441, 1307991, 8488566, 07075777, 1366421 #### [facility] [address] [place] [address] Hemoglobin (Bld) [Mass/Vol] 12.6 g/dL Normal 12.0-16.0 [facility] Comment on above: Performed By: #### 2 784308, 1283250, 4182011, 89986909, 8390753 #### [facility] [address] [place] [address] MCH (RBC) [Entitic mass] 32.0 pg Normal 27.0-34.0 [facility] Comment on above: Performed By: #### 2 189103, 1915987, 6582375, 77701519, 5784862 #### [facility] [address] [place] [address] MCHC (RBC) [Mass/Vol] 32.7 g/dL Normal 31.4-36.0 [facility] Comment on above: Performed By: #### 2 966939, 5543068, 1203587, 77985679, 4927378 #### [facility] [address] [place] [address] MCV (RBC) [Entitic vol] 98.1 fL Normal 80.0-100.0 [facility] Comment on above: Performed By: #### 2 262545, 3764248, 0950053, 51877438, 5540574 #### [facility] [address] [place] [address] Platelet mean volume (Bld) [Entitic vol] 7.8 fL Normal 6.4-10.8 [facility] Comment on above: Performed By: #### 2 861471, 1669981, 7388947, 68375919, 9441057 #### [facility] [address] [place] [address]662 Platelets (Bld) [#/Vol] 326.0 E9/L Normal 150.0-500.0 [facility] Comment on above: Performed By: #### 2 683534, 5992267, 0128767, 40658926, 7624602 #### [facility] [address] [place] [address] RBC (Bld) [#/Vol] 3.9 E12/L Low 4.3-5.9 [facility] Comment on above: Performed By: #### 2 956216, 8845133, 4710719, 62988919, 8924813 #### [facility] [address] [place] [address] WBC corrected for nucl RBC Auto (Bld) [#/Vol] 4.5 E9/L Normal 4.0-11.0 [facility] Comment on above: Performed By: #### 2 260630, 9878620, 0365880, 85093930, 1965471 #### [facility] [address] [place] [address] CHEMISTRYOrdered By: SYSTEM SYSTEM on 09-17-2023 Albumin [Mass/Vol] 4.3 g/dL Normal 3.3 - 5.0 gm/dL [facility] Albumin/Globulin [Mass ratio] 1.4 {ratio} Normal 1.1 - 2.2 [facility] Alk Phos 109 [iU]/d High 21 - 98 Int._Unit/L [facility] ALT 46 [iU]/d Normal 6 - 46 Int._Unit/L [facility] Anion gap [Moles/Vol] 10 mmol/L Normal 6 - 16 mEq/L [facility] AST 29 [iU]/d Normal 5 - 43 Int._Unit/L [facility] Bili Total 0.5 mg/dL Normal 0.0 - 1.1 mg/dL [facility] Calcium [Mass/Vol] 10.3 mg/dL Normal 8.9 - 11. 1 mg/dL [facility] Chloride [Moles/Vol] 99 mmol/L Low 101 - 111 mmol/L [facility] Cholesterol [Mass/Vol] 176 mg/dL Normal 120 - 200 mg/dL [facility] Cholesterol in HDL [Mass/Vol] 64 mg/dL Invalid Interpretation Code [facility] Comment on above: Result Comment: '>= 60 LOW RISK' '<= 40 HIGH RISK' Cholesterol in LDL [Mass/Vol] 98 mg/dL Normal <=129mg/dL [facility] Cholesterol in VLDL [Mass/Vol] 12 mg/dL Normal 7 - 40 mg/dL [facility] CO2 [Moles/Vol] 30 mmol/L Normal 21 - 31 mmol/L [facility] Creatinine [Mass/Vol] 0.7 mg/dL Normal 0.5 - 1.3 mg/dL [facility] eGFR mL/min/1.73 m2 Normal >=59mL/min/ 1.73 m2 [facility] Globulin (S) [Mass/Vol] 3.1 g/dL Normal 1.4 - 4.0 gm/dL [facility] Glucose [Mass/Vol] 81 mg/dL Normal 55 - 199 mg/dL [facility] Potassium [Moles/Vol] 4.0 mmol/L Normal 3.5 - 5.3 mmol/L [facility] Protein [Mass/Vol] 7.4 g/dL Normal 6.0 - 7.8 gm/dL [facility] Sodium [Moles/Vol] 135 mmol/L Normal 135 - 145 mmol/L [facility] Triglyceride [Mass/Vol] 58 mg/dL Normal <=149mg/dL [facility] Urea nitrogen [Mass/Vol] 13 mg/dL Normal 5 - 21 mg/dL [facility] Urea nitrogen/Creatinine [Mass ratio] 19 mg/mg Normal 10 - 20 [facility] CMPon 09-17-2023 Albumin [Mass/Vol] 4.3 g/dL Normal 3.3-5.0 [facility] Comment on above: Performed By: #### 2 831723, 0392146, 6988712, 75761557, 1442859 #### [facility] [address] [place] [address] Albumin/Globulin [Mass ratio] 1.4 {ratio} Normal 1.1-2.2 [facility] Comment on above: Performed By: #### 2 469353, 3006961, 4153097, 51525855, 2543075 #### [facility] [address] [place] [address] Alk Phos 109 Int._Unit/L High 21-98 [facility] Comment on above: Performed By: #### 2 568001, 6855454, 5720243, 55424734, 1315152 #### [facility] [address] [place] [address] ALT 46 Int._Unit/L Normal 6-46 [facility] Comment on above: Performed By: #### 2 978399, 4299590, 3004682, 16061605, 2867772 #### [facility] [address] [place] [address] Anion gap [Moles/Vol] 10 mmol/L Normal 6-16 [facility] Comment on above: Performed By: #### 2 560829, 1082750, 3380780, 47268357, 4311127 #### [facility] [address] [place] [address] AST 29 Int._Unit/L Normal 5-43 [facility] Comment on above: Performed By: #### 2 892551, 1954780, 2008306, 12415041, 1124245 #### [facility] [address] [place] [address] Bili Total 0.5 mg/dL Normal 0.0-1.1 [facility] Comment on above: Performed By: #### 2 756250, 8062405, 0311474, 81375636, 1899567 #### [facility] [address] [place] [address] BUN/Creat Ratio 19 No Units Normal 10-20 [facility] Comment on above: Performed By: #### 2 110680, 0897089, 4424492, 46400464, 8556519 #### [facility] [address] [place] [address] Calcium [Mass/Vol] 10.3 mg/dL Normal 8.9-11.1 [facility] Comment on above: Performed By: #### 2 901671, 1044174, 2758569, 63336467, 6357113 #### [facility] [address] [place] [address] Chloride [Moles/Vol] 99 mmol/L Low 101-111 [facility] Comment on above: Performed By: #### 2 103545, 0096263, 0270408, 05948250, 7869789 #### [facility] [address] [place] [address] CO2 [Moles/Vol] 30 mmol/L Normal 21-31 [facility] Comment on above: Performed By: #### 2 856985, 2379350, 5153124, 25572000, 3421849 #### [facility] [address] [place] [address] Creatinine [Mass/Vol] 0.7 mg/dL Normal 0.5-1.3 [facility] Comment on above: Performed By: #### 2 217853, 0457943, 5203785, 50997784, 7684120 #### [facility] [address] [place] [address] Globulin (S) [Mass/Vol] 3.1 g/dL Normal 1.4-4.0 [facility] Comment on above: Performed By: #### 2 796291, 0302545, 1172467, 39897945, 4663970 #### [facility] [address] [place] [address] Glucose [Mass/Vol] 81 mg/dL Normal 55-199 [facility] Comment on above: Performed By: #### 2 704758, 0531207, 8609019, 11134412, 2206115 #### [facility] [address] [place] [address] Potassium [Moles/Vol] 4.0 mmol/L Normal 3.5-5.3 [facility] Comment on above: Performed By: #### 2 688698, 1482174, 4765224, 71052629, 8663911 #### [facility] [address] [place] [address] Protein [Mass/Vol] 7.4 g/dL Normal 6.0-7.8 [facility] Comment on above: Performed By: #### 2 904805, 1692676, 8360072, 89170304, 1188345 #### [facility] [address] [place] [address] Sodium [Moles/Vol] 135 mmol/L Normal 135-145 [facility] Comment on above: Performed By: #### 2 184416, 2222443, 1833369, 48397885, 4764739 #### [facility] [address] [place] [address] Urea nitrogen [Mass/Vol] 13 mg/dL Normal 5-21 [facility] Comment on above: Performed By: #### 2 737921, 6892923, 5872136, 19686535, 8896281 #### [facility] [address] [place] [address] Consent for Treatmenton 08-21 Consent for Treatment [id number] Normal [facility] HEMATOLOGYOrdered By: SYSTEM SYSTEM on 09-17-2023 Basophils/100 WBC (Bld) 0.7 % Normal 0.0 - 2.0 % [facility] Basophils/Leukocyte s Auto (Bld) [Pure # fraction] 0.0 E9/L Normal 0.0 - 0.2 E9/L [facility] Eosinophils/100 WBC (Bld) 3.9 % Normal 0.0 - 8.0 % [facility] Eosinophils/Leukocy leonel Auto (Bld) [Pure # fraction] 0.2 E9/L Normal 0.0 - 0.5 E9/L [facility] Lymphocytes/100 WBC (Bld) 35.3 % Normal 14.0 - 50.0 % [facility] Lymphocytes/Leukocy leonel Auto (Bld) [Pure # fraction] 1.6 E9/L Normal 1.0 - 4.0 E9/L [facility] Monocytes/100 WBC (Bld) 9.9 % Normal 4.0 - 14.0 % [facility] Monocytes/Leukocyte s Auto (Bld) [Pure # fraction] 0.4 E9/L Normal 0.2 - 1.0 E9/L [facility] Neutrophils/100 WBC (Bld) 50.2 % Normal 36.0 - 75.0 % [facility] Neutrophils/Leukocy leonel Auto (Bld) [Pure # fraction] 2.3 E9/L Normal 2.0 - 7.5 E9/L [facility] HEMATOLOGYOrdered By: Celia Rowe on 09-17-2023 Erythrocyte distribution width (RBC) [Ratio] 13.1 % Normal 10.9 - 14.2 % [facility] Hematocrit (Bld) [Volume fraction] 38.5 % Normal 34.0 - 46.0 % [facility] Hemoglobin (Bld) [Mass/Vol] 12.6 g/dL Normal 12.0 - 16.0 gm/dL [facility] MCH (RBC) [Entitic mass] 32.0 pg Normal 27.0 - 34.0 pg [facility] MCHC (RBC) [Mass/Vol] 32.7 g/dL Normal 31.4 - 36.0 gm/dL [facility] MCV (RBC) [Entitic vol] 98.1 fL Normal 80.0 - 100.0 fL [facility] Platelet mean volume (Bld) [Entitic vol] 7.8 fL Normal 6.4 - 10.8 fL [facility] Platelets (Bld) [#/Vol] 326.0 E9/L Normal 150.0 - 500.0 E9/L [facility] RBC (Bld) [#/Vol] 3.9 E12/L Low 4.3 - 5.9 E12/L [facility] WBC corrected for nucl RBC Auto (Bld) [#/Vol] 4.5 E9/L Normal 4.0 - 11.0 E9/L [facility] Lipid Panelon 09-17-2023 Cholesterol [Mass/Vol] 176 mg/dL Normal 120-200 [facility] Comment on above: Performed By: #### 2 815436, 7751690, 0427192, 40100831, 7633286 #### [facility] [address] [place] [address] Cholesterol in HDL [Mass/Vol] 64 mg/dL Invalid Interpretation Code [facility] Comment on above: Result Comment: '>= 60 LOW RISK' '<= 40 HIGH RISK' Performed By: #### 2 093467, 2423383, 7496553, 20834567, 4876697 #### [facility] [address] [place] [address] Cholesterol in LDL [Mass/Vol] 98 mg/dL Normal <=129 [facility] Comment on above: Performed By: #### 2 042362, 3638818, 4527815, 63316548, 1682400 #### [facility] [address] [place] [address] Cholesterol in VLDL [Mass/Vol] 12 mg/dL Normal 7-40 [facility] Comment on above: Performed By: #### 2 830078, 1665510, 7220317, 29453278, 0980547 #### [facility] [address] [place] [address] Triglyceride [Mass/Vol] 58 mg/dL Normal <=149 [facility] Comment on above: Performed By: #### 2 985629, 3959119, 3213784, 40925932, 8998970 #### [facility] [address] [place] [address] eGFRon 09-17-2023 GFR/1.73 sq M.predicted among non-blacks MDRD (S/P/Bld) [Vol rate/Area] mL/min/{1.73_m2} Normal >=59 [facility] Comment on above: Order Comment: Order added by Discern Expert. Performed By: #### 2 293624, 8649818, 0150443, 21826530, 9227242 ####[facility] [address] [place] [address] Physician Orderon 09-13-2023 Physician Order [id number] Normal [facility] Jose 09-08-2023 REMIN Telephone (SPNMAV) VERENICE MARIA VICTORIA NEELY ([id number]) 1950 F Date Time Provider Department 09/08/23 CONOR DUEÑAS During your visit today, we recorded the following information about you: Zion Walter MA 09/08/2023 12:47 PM Signed DATE OF SERVICE: 09/06/2023 PATIENT'S PHONE NUMBERS: [phone] (home) OR @[facility]@ PROVIDER: Dr. Dueñas PROCEDURE: Elective Pain Management Procedure Spoke directly with patient/caregiver Patient states that they are 90-95% better. Patient claims to have no problems. Allergies As of Date: 09/08/2023 Noted Allergy Reaction CLINDAMYCIN 09/03/2010 16 - Unknown Date Reviewed: 09/06/2023 Reviewed by: Sandie Lawton RN - Fully Assessed Reason for Visit: Follow Up Phone Call [[phone]] Prescriptions as of 09/08/2023 - atorvastatin (LIPITOR) 10 mg tablet Take 10 mg by mouth once daily. - citalopram (CELEXA) 20 mg tablet Take 20 mg by mouth once daily. - cyanocobalamin, vitamin B-12, (VITAMIN B-12 SUBLINGUAL) - ketorolac (ACULAR) 0.5 % ophthalmic solution Use 1 Drop in both eyes twice daily. - Lactobacillus acidophilus (PROBIOTIC) 10 billion cell cap Take 1 capsule by mouth once daily. - Magnesium 250 mg tab Take 250 mg by mouth once daily. - turmeric 400 mg cap Take 400 mg by mouth once daily. - ALPRAZolam (XANAX) 1 mg ORAL tablet Take one-half (1/2) tablet daily. - [place]-3 Fatty Acids-Vitamin E (FISH OIL) 1,000 mg ORAL Cap Take one(1) tablet daily. - multivitamin (DAILY MULTI-VITAMIN) ORAL tablet Take one(1) tablet daily. - calcium carbonate 600 mg-cholecalciferol 200 units (CALCIUM 600 + D,3,) 600 mg(1,500mg) -200 unit ORAL Tab Take one(1) tablet daily. Problem List As Of Date 09/08/2023 Noted Resolved Shoulder pain [M25.519] 08/20/2014 Reardon neuroma [G57.60] 08/19/2015 Rotator cuff strain, right, initial encounter [*2017 Cuboid syndrome of right foot [S93.311A] 09/29/2017 Gluteal pain [M79.18] 12/02/2018 Primary osteoarthritis of right knee [M17.11] 06/11/2019 Chronic pain of right knee [M25.561, G89.29] 06/11/2019 Trigger ring finger of right hand [M65.341] 06/28/2019 Chronic right-sided low back pain with right-si*07/18/2019 Chronic right-sided low back pain with left-alyson*08/20/2019 Lumbosacral radiculopathy [M54.17] 08/20/2019 Chronic bilateral low back pain with bilateral *09/24/2019 Trigger finger of right hand [M65.30] 11/22/2019 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 CLINICAL HISTORY: N28.1. FINDINGS: Right kidney measures 11.4 x 5.7 x 4.7 cm. Left kidney measures 10.3 x 4.4 x 4.2 cm. Both kidneys normal in size, shape, echogenicity, and color flow. No hydronephrosis, calculi, cortical thinning, cystic/solid lesions identified. Ordering Provider: Simona ANDRES FINAL REPORT Dictated: 09/07/2023 1:11 pm Son Bai MD Signed (Electronic Signature): 09/07/2023 1:11 pm Signed by: Son Bai MD Transcribed by: MELISA Technologist: [facility] OPERATIVE NOon 09-06-2023 OPERATIVE NO HNO ID: [id number] Author: Conor Dueñas, DO Service: ? Author Type: Physician Type: Operative Report Filed: 09/06/2023 11:54 AM Note Text: Pt presents for f/u. Continues to have Rt leg pain. Overall, pt states that her rt leg pain is better. Wants to proceed with an injection today to address the presenting symptoms. Consent obtained. Rt side was marked in the pre-op area. Pt is aware of risks, benefits, alternatives, expected outcome, equipment and personnel. The patient was offered a procedure / surgery at a [facility]. It is not possible to know either the risk of delaying the surgery or procedure or chance of getting an infection with perfect accuracy, but a joint decision was made between the patient and the surgeon/proceduralist to proceed at this time with the scheduled surgery/procedure as indicated on the consent form. [facility] approved time out was performed identifying the site, side and level of procedure prior to start of procedure. [facility] - ELECTIVE PROCEDURE Lumbar Transforaminal Epidural Steroid Injection and/or Selective Nerve Root Block under Fluoroscopy Indication: Lumbar Spinal Stenosis with neurogenic claudication and Rt thoracolumbar radiculitis Dr. Jaylen Luther The risks and benefits of the procedure were discussed with the patient. The verbal and written informed consent of the patient was obtained. The patient was taken to the fluoroscopy suite. The patient was placed in the prone position on the fluoroscopic table, and the lumbar area was prepped and draped in a sterile fashion. DuraPrep was used per skin prep guidelines. Using fluoroscopic guidance the L5 vertebral body was definitively identified using the most caudal normal disc space labeled as L5-S1. The iliac crest was also visualized as a secondary landmark identifying the L4-5 level. First image is with a needle marker on the rt side. The Rt L5-S1 neural foramen was identified using fluoroscopic guidance after which the overlying skin was anesthetized using sterile technique with 1% preservative free Xylocaine. A sterile 5 inch 22G spinal needle was introduced after which the needle tip was carefully directed toward the inferior (6 o'clock) position of the pedicle which formed the roof of the identified foramen. No blood or CSF was aspirated. Omnipaque 300mgI/mL, approximately 1 cc was injected to rule out intravascular placement of the needle. Medial flow was noted on AP/ oblique view along with contrast under the pedicle on the lateral view. X-rays were obtained for documentation purpose. After this, 10 mg of dexamethasone + 3 cc's of 2% Xylocaine preservative free was injected into the intervertebral foramen The needle was then removed. Vital signs remained normal. There were no complications. Pulse oximeter was used throughout the procedure and the patient's pulse and oxygen saturation remained within normal limits. The patient tolerated the procedure well. The patient was instructed to apply ice over the injection site for twenty minutes every two hours for the next twenty-four to forty-eight hours. The patient was also instructed to contact me if there is any exacerbation of the symptoms. Post procedure instruction sheet was given. The patient was recommended to follow up with me in one to two weeks. Incision/Procedure Start Time: 11:43 AM Incision Close/Procedure End Time: 11:50 AM Date of Service: 09/06/2023 I was present for the entire duration of the procedure and I performed the critical parts of the procedure. Conor Dueñas DO, MBA [facility] Consultation Noteon 09-05-20 Consultation Note [id number] [facility] Consultation Noteon 09-03-20 Consultation Note [id number]#[id number] [facility]02[facility] MARIA VITCORIA ROWAN ([id number]) 1950 F Date Time Provider Department 09/02/23 CONOR DUEÑAS During your visit today, we recorded the following information about you: Lashon Wakefield 09/02/2023 1:25 PM Hank Irene is calling Conor Dueñas DO today to request return call to discuss upcoming procedure. Patient has been identified by name and birthdate. Duration of symptoms: N/A Person calling: self Call patient at: on cell [phone] (home) [phone] (cell) Was an appointment scheduled: No Closing statement: Results or non-symptom based questions: Thank you for calling [facility], your call will be returned within the next business day. Jewell Stringer LPN 09/02/2023 1:38 PM Signed Pt calling stating that the Rt side is hurting again Pt aware that she had requested the Lt side be done this time Advised pt the day of the procedure Dr Dueñas will give the procedure that day based on the presentation and symptoms Pt verbalized understanding Allergies As of Date: 09/02/2023 Noted Allergy Reaction CLINDAMYCIN 09/03/2010 16 - Unknown Date Reviewed: 08/25/2023 Reviewed by: Lilian Gaytan - Fully Assessed Reason for Visit: Patient Question [5227] Prescriptions as of 09/02/2023 - atorvastatin (LIPITOR) 10 mg tablet Take 10 mg by mouth once daily. - citalopram (CELEXA) 20 mg tablet Take 20 mg by mouth once daily. - cyanocobalamin, vitamin B-12, (VITAMIN B-12 SUBLINGUAL) - ketorolac (ACULAR) 0.5 % ophthalmic solution Use 1 Drop in both eyes twice daily. - Lactobacillus acidophilus (PROBIOTIC) 10 billion cell cap Take 1 capsule by mouth once daily. - Magnesium 250 mg tab Take 250 mg by mouth once daily. - turmeric 400 mg cap Take 400 mg by mouth once daily. - ALPRAZolam (XANAX) 1 mg ORAL tablet Take one-half (1/2) tablet daily. - Milton-3 Fatty Acids-Vitamin E (FISH OIL) 1,000 mg ORAL Cap Take one(1) tablet daily. - multivitamin (DAILY MULTI-VITAMIN) ORAL tablet Take one(1) tablet daily. - calcium carbonate 600 mg-cholecalciferol 200 units (CALCIUM 600 + D,3,) 600 mg(1,500mg) -200 unit ORAL Tab Take one(1) tablet daily. 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] 08/19/2015 Rotator cuff strain, right, initial encounter [*2017 Cuboid syndrome of right foot [S93.311A] 09/29/2017 Gluteal pain [M79.18] 12/02/2018 Primary osteoarthritis of right knee [M17.11] 06/11/2019 Chronic pain of right knee [M25.561, G89.29] 06/11/2019 Trigger ring finger of right hand [M65.341] 06/28/2019 Chronic right-sided low back pain with right-si*07/18/2019 Chronic right-sided low back pain with left-alyson*08/20/2019 Lumbosacral radiculopathy [M54.17] 08/20/2019 Chronic bilateral low back pain with bilateral *09/24/2019 Trigger finger of right hand [M65.30] 11/22/2019 Neuroforaminal stenosis of lumbosacral spine [M*03/10/2020 Encounter Status:Closed by JEWELL ESPINOZA LPN on 09/02/23 [facility] Family Medicine Office/Clini c Noteon 08-30-2023 Family Medicine Office/Clinic Note Chief Complaint Dr. Evans told her she has cyst on kidney per radiology tests she had in March 2023 at [place]. History of Present Illness Here for follow up on a cyst that ortho told her was seen on her left kidney noted on an MRI. Radiology did not mention it in their report. She does not have any pain in the left kidney area. No hematuria. She still has low back and hip pain. Physical Exam Vitals & Measurements T: 36.6 ?C(Oral) HR: 75(Peripheral) BP: 130/66 SpO2: 98% HT: 61 in HT: 155 cm WT: 62 kg WT: 136.4 lb BMI: 25.81 General: Well developed, well nourished, in no acute distress Mental Status: Alert. Normal mood and affect Assessment/Plan 1. Renal cyst (N28.1: Cyst of kidney, acquired) will get US Ordered: US Renal 2. Adult BMI 25.0-25.9 kg/sq m (Z68.25: Body mass index [BMI] 25.0-25.9, adult) The standard range for ages 18 and older is >=18.5 and < 25 kg/m2. Your BMI today was above this range, this falls in the overweight to obese category and there are medical benefits to weight loss. We can offer counselling, referral, and/or medical support in addressing this problem. Your BMI and weight management will be followed at subsequent visits. 3. Overweight (E66.3: Overweight) 4. Insomnia (G47.00: Insomnia, unspecified) She would like to try and wean off Xanax and then trazodone. She is on half tab Xanax. She can start by skipping one night a week and see how that goes. Follow-up With When Contact Information MICAELA NG, Simona Webb, YUSEF [facility] [address] [place] [address]- Additional Instructions: at regular appt but sooner if needed. Patient Education BMI for Adults Problem List/Past Medical History Ongoing Acquired deviated nasal septum GALINDO positive Anserine bursitis Arthralgia of the ankle and/or foot Biceps tendinitis Constipation Cuboid syndrome Eczema Generalized anxiety disorder Hearing reduced History of malignant basal cell neoplasm of skin History of shingles Hyperlipidemia Insomnia Leukopenia Low back pain Lumbar radiculopathy Lumbar spondylolisthesis KAYLA (obstructive sleep apnea) Osteoarthritis Osteopenia Plastic surgery - specialty Renal cyst Tinnitus of both ears Urine abnormality Historical BMI 24.0-24.9, adult Colon polyps Procedure/Surgical History Injection of facet joint using fluoroscopic guidance (11/30/2021), Epidural injection of lumbar spine using fluoroscopic guidance (10/27/2021), Epidural injection of lumbar spine using fluoroscopic guidance (10/28/2020), Epidural injection of lumbar spine using fluoroscopic guidance (08/19/2020), Arthroscopy of knee (06/13/2020), Colonoscopy (03/18/2020), Esophagogastroduodenoscopy (03/18/2020), Cataract extraction and insertion of intraocular lens (03/27/2019), Cataract extraction and insertion of intraocular lens (03/13/2019), Excision of basal cell carcinoma (2015), Blepharoplasty (2012), Colonoscopy (2010), nose surgery (2010), Rotator cuff repair. Medications atorvastatin 10 mg Tab, 10 mg= 1 tab(s), Oral, Daily, 3 refills baclofen 10 mg Tab, 10 mg= 1 tab(s), Oral, Bedtime calcium (as carbonate) 600 mg oral tablet, 1200 mg= 2 tab(s), Oral, Daily Calcium 600+D, See Instructions CeleXA 20 mg Tab, 20 mg= 1 tab(s), Oral, Daily, 3 refills Dulcolax Stool Softener 100 mg oral capsule, 100 mg= 1 cap(s), Oral, BID, PRN Fish Oil 1000 mg oral capsule, 1000 mg= 1 cap(s), Oral, Daily magnesium oxide 400 mg Tab, 400 mg= 1 tab(s), Oral, Daily MiraLax oral powder for reconstitution, 17 gm, Oral, Daily, 1 refills Multivitamin, Therapeutic w/ Minerals, 1 tab(s), Oral, Daily oxybutynin 10 mg ER Tab, 10 mg= 1 tab(s), Oral, Daily Restasis, 1 drop(s), Eye-Both, BID traZODONE 50 mg Tab, See Instructions, 3 refills turmeric 500 mg oral capsule, 500 mg= 1 cap(s), Oral, Daily Vitamin C, 1000 mg, Oral, Daily Xanax 0.5 mg Tab, 0.5 mg= 1 tab(s), Oral, TID, PRN, 1 refills Allergies clindamycin (swelling of throat, rash) Social History Alcohol - Denies Alcohol Use, 05/11/2019 Substance Abuse - Denies Substance Abuse, 06/06/2020 Tobacco - Denies Tobacco Use, 03/12/2020 Never (less than 100 in lifetime) Tobacco Use:. Never Smokeless Tobacco Use:., 08/30/2023 Family History Coronary artery disease: Sister. Heart disease: Sister. Primary malignant neoplasm of lung: Father. Stroke: Mother and Sister. Immunizations Vaccine Date Status Comments influenza virus vaccine, inactivated 06/15/2023 Recorded influenza virus vaccine, inactivated 06/27/2022 Recorded SARS-CoV-2 (COVID-19) mRNA BNT-162b2 vax 07/01/2021 Recorded influenza virus vaccine, inactivated 06/20/2021 Recorded influenza virus vaccine, inactivated 05/21/2021 Recorded [facility] SARS-CoV-2 (COVID-19) mRNA BNT-162b2 vax 12/11/2020 Given Prophylaxis SARS-CoV-2 (COVID-19) mRNA BNT-162b2 vax 11/13/2020 Given Prophylaxis influenza virus vaccine, inactivated 06/07/2020 Recorded [facility] i (more content not included)... [facility] Comment on above: Result Comment: Elec trojeremiahally Signed By: MICAELA NG, Simona Coy.raina\Date and Time Signed: 08/30/23 12:17 EST Patient Educationon 08-30-20 Patient Education Nutrition BMI for Adults What is BMI? Body mass index (BMI) is a number that is calculated from a person's weight and height. BMI can help estimate how much of a person's weight is composed of fat. BMI does not measure body fat directly. Rather, it is an alternative to procedures that directly measure body fat, which can be difficult and expensive. BMI can help identify people who may be at higher risk for certain medical problems. What are BMI measurements used for? BMI is used as a screening tool to identify possible weight problems. It helps determine whether a person is obese, overweight, a healthy weight, or underweight. BMI is useful for: ? Identifying a weight problem that may be related to a medical condition or may increase the risk for medical problems. ? Promoting changes, such as changes in diet and exercise, to help reach a healthy weight. BMI screening can be repeated to see if these changes are working. How is BMI calculated? BMI involves measuring your weight in relation to your height. Both height and weight are measured, and the BMI is calculated from those numbers. This can be done either in [place] ([place] or metric measurements. Note that charts and online BMI calculators are available to help you find your BMI quickly and easily without having to do these calculations yourself. To calculate your BMI in [place] ([place] measurements: 1. Measure your weight in pounds (lb). 2. Multiply the number of pounds by 703. ? For example, for a person who weighs 180 lb, multiply that number by 703, which equals 126,540. 3. Measure your height in inches. Then multiply that number by itself to get a measurement called inches squared. ? For example, for a person who is 70 inches tall, the inches squared measurement is 70 inches x 70 inches, which equals 4,900 inches squared. 4. Divide the total from step 2 (number of lb x 703) by the total from step 3 (inches squared): 126,540 ? 4,900 = 25.8. This is your BMI. To calculate your BMI in metric measurements: 1. Measure your weight in kilograms (kg). 2. Measure your height in meters (m). Then multiply that number by itself to get a measurement called meters squared. ? For example, for a person who is 1.75 m tall, the meters squared measurement is 1.75 m x 1.75 m, which is equal to 3.1 meters squared. 3. Divide the number of kilograms (your weight) by the meters squared number. In this example: 70 ? 3.1 = 22.6. This is your BMI. What do the results mean? BMI charts are used to identify whether you are underweight, normal weight, overweight, or obese. The following guidelines will be used: ? Underweight: BMI less than 18.5. ? Normal weight: BMI between 18.5 and 24.9. ? Overweight: BMI between 25 and 29.9. ? Obese: BMI of 30 or above. Keep these notes in mind: ? Weight includes both fat and muscle, so someone with a muscular build, such as an athlete, may have a BMI that is higher than 24.9. In cases like these, BMI is not an accurate measure of body fat. ? To determine if excess body fat is the cause of a BMI of 25 or higher, further assessments may need to be done by a health care provider. ? BMI is usually interpreted in the same way for men and women. Where to find more information For more information about BMI, including tools to quickly calculate your BMI, go to these websites: ? Centers for Disease Control and Prevention: www.cdc.gov ? [place] Heart Association: www.heart.org ? National Heart, Lung, and Blood [place]: www.nhlbi.nih.gov Summary ? Body mass index (BMI) is a number that is calculated from a person's weight and height. ? BMI may help estimate how much of a person's weight is composed of fat. BMI can help identify those who may be at higher risk for certain medical problems. ? BMI can be measured using [place] measurements or metric measurements. ? BMI charts are used to identify whether you are underweight, normal weight, overweight, or obese. This information is not intended to replace advice given to you by your health care provider. Make sure you discuss any questions you have with your health care provider. Document Revised: 05/28/2020 Document Reviewed: 04/04/2020 Elsevier Patient Education ? 2022 [employer]. [facility] Family Medicine Office/Clini c Noteon 08-27-2023 Family Medicine Office/Clinic Note Chief Complaint EST pt presents with left foot pain HPI Staff 73 year old female presents with left foot pain. Pt states this morning she bent over and when coming back up her foot popped. History of Present Illness I have reviewed and verified the staff HPI to be accurate for this encounter. Portions of this record have been created with voice recognition software. Occasional wrong-word or ?axfyk-d-yqef? substitutions may have occurred due to the inherent limitations of voice recognition software. 73-year-old female with history of cuboid syndrome of the left foot presents today with chief complaint of left foot pain. Patient states that he she has seen podiatry in the past for this issue states on occasion they have to put the cuboid bone back in place. Patient denies any falls trauma or injuries but states that this morning she simply bent over states that most of her weight was placed on the left foot she states when coming back up she felt a pop in her left foot in which she had pain and discomfort. Patient wants to make sure that there is no cracks in the bone as she states this is the most pain she is ever had. States she was unable to get into see her regular french drawer and could not get in to see [facility] foot [facility] ankle today. She would like an x-ray of the left foot. She denies any numbness tingling or weakness and denies any prior injury to the left foot other than this cuboid syndrome. She has no other concerns at this time. Review of Systems PHQ Score Initial Depression Screen Score: 0 SCORE ROS negative unless otherwise stated in HPI. Physical Exam Vitals & Measurements T: 36.8 ?C(Oral) HR: 74(Peripheral) RR: 16 BP: 126/64 SpO2: 99% HT: 60 in HT: 152 cm WT: 62.3 kg WT: 137.06 lb BMI: 26.97 General: 73-year-old female, no acute distress, well-appearing Eyes: not assessed Ears: not assessed Nose: not addressed Mouth: not assessed Neck: not assessed Lungs: Lung sounds are clear bilaterally. No wheezing rhonchi or crackles on exam. Cardio: S1, S2, regular rhythm. No murmurs gallops or rubs. Abdomen: not assessed Extremity: Patient walks back into convenient care on her own without gait abnormality. She is wearing good supportive tennis shoes which were removed for exam. Patient has strong pedal and posterior tibialis pulse to left foot no lower extremity edema pedal edema no calf tenderness. Negative Homans' sign bilaterally. Patient has pain with discomfort with deep palpation of the left side left lateral portion of the left foot. No underlying deformities or crepitus no overlying bruising lacerations abrasions or lesions. No pain with palpation over the metatarsal bones or into the toes of the left foot. Able to move all toes on left foot without difficulty normal flexion extension at this joint spaces normal flexion extension with plantarflexion and dorsiflexion of left foot and normal range of motion with rotation of the left ankle. There are no focal deficits. Patient is neurovascularly intact. Neurologic: not assessed Skin: No rashes, ulcerations, or suspicious lesions Mental Status: Alert and oriented x3. Normal mood and affect Assessment/Plan X-ray left foot is negative for any fractures or dislocations does note degenerative changes. I updated patient in regards to negative result discussed that she probably sprained her left foot upon standing this morning. Discussed with patient rest ice elevation. An Paul wrap was placed in the left foot that she may use as needed for compression and additional support she will continue wear good supportive tennis shoes and follow closely with her french drawer if she continues to have left foot pain. Patient agrees and understands plan. 1. Sprain of left foot (S93.602A: Unspecified sprain of left foot, initial encounter) Please follow-up with your french drawer in 3 to 5 days. Contact their office tomorrow morning to schedule a follow-up appointment. You were seen and evaluated in regards to left foot pain and discomfort with a history of cuboid syndrome. X-ray was negative for any fracture or dislocation. It did note arthritic or degenerative changes. Discussed close follow-up with podiatry continue rest ice elevation as needed for pain and swelling Tylenol or ibuprofen as needed for pain. An Paul wrap was placed on the left foot to help with swelling inflammation and discomfort continue to use as needed. Continue to wear good supportive tennis shoes. He may return if needed. Patient agrees and understands plan. 2. BMI 26.0-26.9,adult (Z68.26: Body mass index [BMI] 26.0-26.9, adult) The standard range for ages 18 and older is >=18.5 and < 25 kg/m2. Your BMI today was above this range, this falls in the overweight to obese category and there are medical benefits to weight loss. We can offer counselling, referral, and/or medical support in addressing this problem. Your BMI and weight management will be followed at subsequent visits. Follow-up No qualifying data available Problem List/Past M (more content not included)... [facility] Comment on above: Result Comment: Elec tronically Signed By: Keith HASTINGS, Fredy Hughes\.br\Date and Time Signed: 08/27/23 21:40 EST XR Foot 3+ Views Lefton -0 XR Foot 3+ Views Left Exam Date/Time: 08/26/2023 14:29 EST Reason for Exam: Pain, Non Traumatic Report IMPRESSION: NO DISPLACED FRACTURE OR ACUTE OSSEOUS PROCESS IDENTIFIED. EXAM: XR Foot 3+ Views Left DATE: 08/26/2023 2:29 PM CLINICAL HISTORY: Pain, Non Traumatic. COMPARISON: None available. TECHNIQUE: AP, lateral and oblique radiographs of the left foot were obtained. FINDINGS: There is no fracture, dislocation, worrisome bone destruction, radiodense foreign bodies, or other acute findings identified. Geyt-lp-xzuvbjxz degenerative changes are present, predominantly of the first MTP joint and mid foot. Mild calcaneal spurring is present. Ordering Provider: Fredy Parker FINAL REPORT Dictated: 08/26/2023 2:39 pm Adams Kendall MD Signed (Electronic Signature): 08/26/2023 2:39 pm Signed by: Adams Kendall MD Transcribed by: MELISA Technologist: LARRY Technical Comments Radiation Dose: link Michelle in mGy = . DAP = . [facility] CNOVon 08-25-2023 CNOV Office Visit (ORTHIN ) MARIA VICTORIA ROWAN ([id number]) 1950 F Date Time Provider Department 08/25/23 12:00 PM ZACH BENZ During your visit today, we recorded the following information about you: Zach Benz MD 08/25/2023 12:12 PM Signed Patient: Maria Victoria Neely : 1950 Providers Referring physician: Simona Andres MD Primary care physician: Simona Andres MD Chief complaint: Patient presents with: Right Hip - New Patient seen in subspecialty orthopedic hip consultation at the request of Simona Andres MD. The final recommendations will be communicated back to the requesting clinician by way of the shared medical record or letter via US mail. HPI: Maria Victoria Neely is a 73 year old female seen with a 7 months history of right hip pain. The onset of pain has been acute on chronic, and the pain is worsening. The pain primarily localizes: right lateral hip pain and right buttock pain. PAIN EVALUATION 08/19/2023 1529 Pain Level: 4 Pain Location: Hip-Right Description: Aching Duration Units: Months Frequency: Continuous Intervention/Comfort measure: Medication Comments: I also have sciatica my PT said the pain is probably coming from both areas. Wondering if a diagnostic injection would help me determine if the hip is causing much of a problem. The patient does have pain with weight-bearing. The patient has difficulty with placing shoes and socks. The pain is exacerbated with low chairs, managing stairs, pivoting, prolonged sitting, and prolonged standing. She reports numbness, tingling, or electric shocks. She reports giving way. Alleviating factors: Rest Prior interventions: Physical therapy: Yes Injections/ aspiration: Yes - lateral hip; no intra-artic injection Pain medications: OTC Past Medical History PAST MEDICAL HISTORY Diagnosis Date Lumbosacral radiculopathy 08/20/2019 Osteoporosis, unspecified Past Surgical History PAST SURGICAL HISTORY Procedure Laterality Date AUGMENTATION MAMMAPLASTY 10 yrs ago CERVICOPLASTY 13 yrs ago facelift CERVICOPLASTY 11 yrs ago abdominoplasty OPEN REPAIR OF ROTATOR CUFF ACUTE 2003 Rotator cuff repair Family History No family history on file. Social History Social History Tobacco Use Smoking status: Never Smokeless tobacco: Never Allergies: ALLERGIES Allergen Reactions Clindamycin Unknown Medications Current Outpatient Medications: atorvastatin (LIPITOR) 10 mg tablet citalopram (CELEXA) 20 mg tablet cyanocobalamin, vitamin B-12, (VITAMIN B-12 SUBLINGUAL) ketorolac (ACULAR) 0.5 % ophthalmic solution Lactobacillus acidophilus (PROBIOTIC) 10 billion cell cap Magnesium 250 mg tab turmeric 400 mg cap ALPRAZolam (XANAX) 1 mg ORAL tablet Milton-3 Fatty Acids-Vitamin E (FISH OIL) 1,000 mg ORAL Cap multivitamin (DAILY MULTI-VITAMIN) ORAL tablet calcium carbonate 600 mg-cholecalciferol 200 units (CALCIUM 600 + D,3,) 600 mg(1,500mg) -200 unit ORAL Tab Review of Systems: Reviewed and charted into enGene. Physical Exam: PE reveals a female with the following vitals signs: There were no vitals taken for this visit. There is no height or weight on file to calculate BMI. General appearance: Well appearing, alert, in no acute distress, well-hydrated, well nourished. Psych: Mood and affect broad and appropriate Head: Normocephalic, no masses, lesions, tenderness or abnormalities Eyes: Anicteric sclera. Pupils are equally round and reactive to light. Extraocular movements are intact. ENT: Nares patent Heart: Regular rate and rhythm Lymph: There is no lymphadenopathy. The patient has a mildly antalgic gait with no assistance. There is a equivocal Trendelenberg sign as abductors functionally weak. HIP EXAM: Right Left Hip extension 10 degrees 10 degrees Hip flexion 90 degrees 90 degrees Hip IR (supine) 30 degrees 30 degrees Hip ER (supine) 40 degrees 40 degrees Hip aBduction 40 degrees 40 degrees Hip aDduction 15 degrees 15 degrees Knee extension 0 degrees 0 degrees Knee flexion 110 degrees 110 degrees Straight leg raise Intact Intact Knee effusion No No Knee stable Yes Yes Point tenderness on palpation: The right hip is tender over the posterior and lateral aspect of the hip. Pain with resisted hip flexion: positive - mostly lateral hip Pain with passive hip rotation: positive Skin: Normal temperature without erythema Scars: No Motor/sensory function: Intact DP/PT pulses: 2+ KNEE EXAM: Examination of the knees demonstrates normal ROM without pain. LUMBAR SPINE: Examination of the lumbar spine demonstrates normal ROM. Straight leg raise is negative bilaterally. Patellar tendon and Achilles tendon reflexes are 2/4 bilaterally. Radiology Findings: (I have reviewed appropriate radiology images and reports.) XR Right hip - preserv (more content not included)... Normal [facility] XR HIP 3V PELV+ AP/LAT RTon 08-25-2023 XR HIP 3V PELV+ AP/LAT RT * * *Final Report* * * DATE OF EXAM: Aug 25 2023 11:42AM CCX [id number] - XR HIP 3V PELV+ AP/LAT RT / PROCEDURE REASON: Pain in right hip * * * * Physician Interpretation * * * * HISTORY: Pain in right hip . RIGHT HIP PAIN TECHNIQUE: XR HIP 3V PELV+ AP/LAT RT COMPARISON: 10/03/2018 RESULT: No change. Mild degenerative changes in both hips with axial narrowing and small marginal osteophytes. Enthesophytes at the greater trochanters and iliac crests bilaterally. Sacroiliac joints and pubic symphysis within normal limits. No fractures. No other significant abnormality. IMPRESSION: MILD DEGENERATIVE CHANGES IN BOTH HIPS Sustainment Logistics Analyst: PREMA Transcribe Date/Time: Aug 25 2023 11:47A Dictated by : TRINIDAD ARREOLA MD This examination was interpreted and the report reviewed and electronically signed by: TRINIDAD ARREOLA MD on Aug 25 2023 11:48AM EST [id number] Normal [facility] Family Medicine Office/Clini c Noteon 07-15-2023 Family Medicine Office/Clinic Note Chief Complaint infection of right middle finger HPI Staff 72 yr old female here for Paronychia of right middle finger. States she has had this in the past. History of Present Illness Portions of this record may have been created with voice recognition artificial intelligence software, specifically [employer], [employer] and or [employer]. Substitutions may have occurred due to the inherent limitations of voice recognition and artificial intelligence software. Staff hpi reviewed. Patient is a 72-year-old female complaint of paronychia . States has had this several times in the past. States began a couple days ago to the right middle finger. No other complaints or concerns. Patient with allergy to clindamycin. Review of Systems PHQ Score Initial Depression Screen Score: 0 Physical Exam Vitals & Measurements T: 37 ?C(Oral) HR: 66(Peripheral) BP: 129/73 SpO2: 98% HT: 61 in HT: 156 cm WT: 63.1 kg WT: 138.82 lb BMI: 25.93 General - alert no acute distress Skin - warm dry Head -normocephalic atraumatic Cardiovascular - regular rate regular rhythm Respiratory - lungs clear to auscultation, non-labored respirations, breath sounds equal Extremity-patient with early paronychia of the right middle finger 1 mm diameter area of erythema to the lateral nailbed fold full range of motion intact to the digit area is warm and tender MS PS intact, capillary refill less than 3 seconds Assessment/Plan Patient with early mild paronychia patient treated with Bactrim and mupirocin topically. Patient states understanding of information. Patient in agreement with treatment plan. 1. Paronychia, finger (L03.019: Cellulitis of unspecified finger) Orders: mupirocin topical, 1 jesus, Topical, BID for 7 day(s), 22 gm, Refill(s) 0, [facility], 156, cm, 07/15/23 11:32:00 EDT, Height/Length Dosing, 63.1, kg, 07/15/23 11:32:00 EDT, Weight Dosing sulfamethoxazole-trimethopri m, 1 tab(s), Oral, BID for 7 day(s), 14 tab(s), Refill(s) 0, [facility], 156, cm, 07/15/23 11:32:00 EDT, Height/Length Dosing, 63.1, kg, 07/15/23 11:32:00 EDT, Weight Dosing Follow-up With When Contact Information MICAELA NG, Simona Webb, YUSEF [facility] [address], [place] [address]- Additional Instructions: Patient Education Paronychia, [place]sc[place] Problem List/Past Medical History Ongoing Acquired deviated nasal septum GALINDO positive Anserine bursitis Arthralgia of the ankle and/or foot Biceps tendinitis Constipation Cuboid syndrome Eczema Generalized anxiety disorder Hearing reduced History of malignant basal cell neoplasm of skin History of shingles Hyperlipidemia Insomnia Leukopenia Low back pain Lumbar radiculopathy Lumbar spondylolisthesis KAYLA (obstructive sleep apnea) Osteoarthritis Osteopenia Plastic surgery - specialty Tinnitus of both ears Urine abnormality Historical BMI 24.0-24.9, adult Colon polyps Procedure/Surgical History Injection of facet joint using fluoroscopic guidance (11/30/2021), Epidural injection of lumbar spine using fluoroscopic guidance (10/27/2021), Epidural injection of lumbar spine using fluoroscopic guidance (10/28/2020), Epidural injection of lumbar spine using fluoroscopic guidance (08/19/2020), Arthroscopy of knee (06/13/2020), Colonoscopy (03/18/2020), Esophagogastroduodenoscopy (03/18/2020), Cataract extraction and insertion of intraocular lens (03/27/2019), Cataract extraction and insertion of intraocular lens (03/13/2019), Excision of basal cell carcinoma (2015), Blepharoplasty (2012), Colonoscopy (2010), nose surgery (2010), Rotator cuff repair. Medications atorvastatin 10 mg Tab, 10 mg= 1 tab(s), Oral, Daily, 3 refills baclofen 10 mg Tab, 10 mg= 1 tab(s), Oral, Bedtime calcium (as carbonate) 600 mg oral tablet, 1200 mg= 2 tab(s), Oral, Daily Calcium 600+D, See Instructions CeleXA 20 mg Tab, 20 mg= 1 tab(s), Oral, Daily, 3 refills Dulcolax Stool Softener 100 mg oral capsule, 100 mg= 1 cap(s), Oral, BID, PRN Fish Oil 1000 mg oral capsule, 1000 mg= 1 cap(s), Oral, Daily magnesium oxide 400 mg Tab, 400 mg= 1 tab(s), Oral, Daily MiraLax oral powder for reconstitution, 17 gm, Oral, Daily, 1 refills Multivitamin, Therapeutic w/ Minerals, 1 tab(s), Oral, Daily mupirocin Top 2% Oint, 1 jesus, Topical, BID oxybutynin 10 mg ER Tab, 10 mg= 1 tab(s), Oral, Daily Restasis, 1 drop(s), Eye-Both, BID sulfamethoxazole-trimethopri m 800 mg-160 mg Tab, 1 tab(s), Oral, BID traZODONE 50 mg Tab, See Instructions, 3 refills turmeric 500 mg oral capsule, 500 mg= 1 cap(s), Oral, Daily Vitamin C, 1000 mg, Oral, Daily Xanax 0.5 mg Tab, 0.5 mg= 1 tab(s), Oral, TID, PRN, 1 refills Allergies clindamycin (swelling of throat, rash) Social History Alcohol - Denies Alcohol Use, 05/11/2019 Substance Abuse - Denies Substance Abuse, 06/06/2020 Tobacco - Denies Tobacco Use, 03/12/2020 Never (less than 100 in lifetime) Tobacc (more content not included)... [facility] Comment on above: Result Comment: Elec tronically Signed By: Kush Reynolds PA-C, V.\.br\Date and Time Signed: 07/15/23 12:31 EDT Patient Educationon 07-15-20 Patient Education Dermatology Paronychia Paronychia is an infection of the skin. It happens near a fingernail or toenail. It may cause pain and swelling around the nail. In some cases, a fluid-filled bump (abscess) can form near or under the nail. Often, this condition is not serious, and it clears up with treatment. What are the causes? This condition may be caused by a germ. The germ may be bacteria or a fungus. These germs can enter the body through an opening in the skin, such as a cut or a hangnail. Other causes include: ? Repeated injuries to your fingernails or toenails. ? Irritation of the base and sides of the nail (cuticle). What increases the risk? This condition is more likely to develop in people who: ? Get their hands wet often, such as a local company flatbed truck driver. ? Bite their fingernails or the base and sides of their nails. ? Have other skin problems. ? Have hangnails or hurt fingertips. ? Come into contact with chemicals like detergents. ? Have diabetes. What are the signs or symptoms? ? Redness and swelling of the skin near the nail. ? A tender feeling around the nail. ? Pus-filled bumps under the skin at the base and sides of the nail. ? Fluid or pus under the nail. ? Pain in the area. How is this treated? Treatment depends on the cause of your condition and how bad it is. If your condition is mild, it may clear up on its own in a few days or after soaking in warm water. If needed, treatment may include: ? Antibiotic medicine. ? Antifungal medicine. ? A procedure to drain pus from a fluid-filled bump. ? Medicine to treat irritation and swelling (corticosteroids). ? Taking off part of an ingrown toenail. A bandage (dressing) may be placed over the nail area. Follow these instructions at home: Wound care ? Keep the affected area clean. ? Soak the fingers or toes in warm water as told by your doctor. You may be told to do this for 20 minutes, 2?3 times a day. ? Keep the area dry when you are not soaking it. ? Do not try to drain a fluid-filled bump on your own. ? Follow instructions from your doctor about how to take care of the affected area. Make sure you: ? Wash your hands with soap and water for at least 20 seconds before and after you change your bandage. If you cannot use soap and water, use hand hook up driver. ? Change your bandage as told by your doctor. ? If you had a fluid-filled bump and your doctor drained it, check the area every day for signs of infection. Check for: ? Redness, swelling, or pain. ? Fluid or blood. ? Warmth. ? Pus or a bad smell. Medicines ? Take epet-xyh-ovfqggj and prescription medicines only as told by your doctor. ? If you were prescribed an antibiotic medicine, take it as told by your doctor. Do not stop taking it even if you start to feel better. General instructions ? Avoid contact with anything that irritates your skin or that you are allergic to. ? Do not pick at the affected area. ? Keep all follow-up visits. Prevention To prevent this condition from happening again: ? Wear rubber gloves when putting your hands in water for washing dishes or other tasks. ? Wear gloves if your hands might touch plastic products sales representative or chemicals. ? Avoid injuring your nails or fingertips. ? Do not bite your nails or tear hangnails. ? Do not cut your nails very short. ? Do not cut the skin at the base and sides of the nail. ? Use clean nail clippers or scissors when trimming nails. Contact a doctor if: ? You feel worse. ? You do not get better. ? You keep having or you have more fluid, blood, or pus coming from the affected area. ? Your affected finger, toe, or joint gets swollen or hard to move. ? You have a fever or chills. ? There is redness spreading from the affected area. Summary ? Paronychia is an infection of the skin. It happens near a fingernail or toenail. ? This condition may cause pain and swelling around the nail. ? Soak the fingers or toes in warm water as told by your doctor. ? Often, this condition is not serious, and it clears up with treatment. This information is not intended to replace advice given to you by your health care provider. Make sure you discuss any questions you have with your health care provider. Document Revised: 12/07/2021 Document Reviewed: 12/07/2021 [employer] Patient Education ? 2022 [employer]. [facility] MARIA VICTORIA ROWAN ([id number]) 1950 F Date Time Provider Department 06/28/23 CONOR DUEÑAS SPNMAV During your visit today, we recorded the following information about you: Zion aWlter MA 06/28/2023 1:20 PM Signed DATE OF SERVICE: 06/23/2023 PATIENT'S PHONE NUMBERS: [phone] (home) OR @WK@ PROVIDER: Dr. Dueñas PROCEDURE: Elective Pain Management Procedure Left message on machine Asked pt to call back and speak with the specialty triage nurse with update. Please obtain percentage better and the duration of improvement. Please inquire if there were any problems afterwards. Thanks, Zion Preciado RN, Jennifer 06/30/2023 3:01 PM Signed Pt returning call Had procedure on 06/23, Next morning pain was 2 out of 10 Next 3 days pain 3 out of 10 On 06/27- 6 out of 10, did a lot of outside things Last couple days, pain 4-5 out of 10 Today seems better, always better in the morning It seems like in the evening when lies down feels more pain Overall pain is about 50%, especially in the morning, fluctuates Right side outside knee was always worse then left Asking if she should get left done in the near future since has helped right leg No problems after the procedure Pt can be reached at: [phone] Ok to leave a message Zion Walter MA 07/01/2023 7:[address] Dueñas - CHUYI> Zion Walter MA 07/01/2023 9:58 AM Signed Formatted spine intervention order and sent to Dr. Dueñas for approval. Zion Walter MA 07/01/2023 9:59 AM Signed Addended by: ZION WALTER on: 07/01/2023 09:59 AM Modules accepted: Conor Tidwell DO 07/01/2023 10:34 AM Signed Addended by: CONOR DUEÑAS on: 07/01/2023 10:34 AM Modules accepted: Zion Appiah MA 07/01/2023 10:36 AM Signed Spine intervention order signed. Will send patient [facility] message with instructions for procedure and where to call to schedule injection. Allergies As of Date: 06/28/2023 Noted Allergy Reaction CLINDAMYCIN 09/03/2010 16 - Unknown Date Reviewed: 06/23/2023 Reviewed by: Elisha Tejada RN - Fully Assessed Reason for Visit: Follow Up Phone Call [[id number]] Primary Visit Diagnosis:Spinal stenosis, lumbar region, without neurogenic claudication [M48.061] Other Visit Diagnosis:Displacement of lumbar intervertebral disc without myelopathy [M51.26] Order(s):SPINE INTERVENTION PROCEDURE [[id number]] Order #: [id number] Prescriptions as of 07/01/2023 - ALPRAZolam (XANAX) 1 mg ORAL tablet Take one-half (1/2) tablet daily. - atorvastatin (LIPITOR) 10 mg tablet Take 10 mg by mouth once daily. - calcium carbonate 600 mg-cholecalciferol 200 units (CALCIUM 600 + D,3,) 600 mg(1,500mg) -200 unit ORAL Tab Take one(1) tablet daily. - citalopram (CELEXA) 20 mg tablet Take 20 mg by mouth once daily. - cyanocobalamin, vitamin B-12, (VITAMIN B-12 SUBLINGUAL) - ketorolac (ACULAR) 0.5 % ophthalmic solution Use 1 Drop in both eyes twice daily. - Lactobacillus acidophilus (PROBIOTIC) 10 billion cell cap Take 1 capsule by mouth once daily. - Magnesium 250 mg tab Take 250 mg by mouth once daily. - multivitamin (DAILY MULTI-VITAMIN) ORAL tablet Take one(1) tablet daily. - Milton-3 Fatty Acids-Vitamin E (FISH OIL) 1,000 mg ORAL Cap Take one(1) tablet daily. - turmeric 400 mg cap Take 400 mg by mouth once daily. 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] 08/19/2015 Rotator cuff strain, right, initial encounter [*2017 Cuboid syndrome of right foot [S93.311A] 09/29/2017 Gluteal pain [M79.18] 12/02/2018 Primary osteoarthritis of right knee [M17.11] 06/11/2019 Chronic pain of right knee [M25.561, G89.29] 06/11/2019 Trigger ring finger of right hand [M65.341] 06/28/2019 Chronic right-sided low back pain with right-si*07/18/2019 Chronic right-sided low back pain with left-alyson*08/20/2019 Lumbosacral radiculopathy [M54.17] 08/20/2019 Chronic bilateral low back pain with bilateral *09/24/2019 Trigger finger of right hand [M65.30] 11/22/2019 Neuroforaminal stenosis of lumbosacral spine [M*03/10/2020 Encounter Status:Closed by ZION WALTER on 06/28/23 [facility] C Urineon 06-25-2023 Bacteria identified Cx Nom (U) Microbiology PROCEDURE: Urine Culture [R1] SOURCE: U CleanCatch BODY SITE: COLLECTED DATE/TIME: 06/23/2023 11:26 EDT RECEIVED DATE/TIME: 06/23/2023 15:21 EDT START DATE/TIME: 06/23/2023 15:22 EDT FREE TEXT SOURCE: Keith HASTINGS, Fredy Parker PA-C, Fredy Hughes FINAL REPORTS Final Report [] Verified Date/Time: 06/25/2023 09:35 EDT >100,000 cfu/ml Escherichia coli SUSCEPTIBILITY RESULTS LEGEND: S=Susceptible, N/R=Not Reported, Blank=Data not available, or drug not advisable or tested, I=Intermediate, ESBL=Extended spectrum beta-lactamase, R=Resistant, TFG=Thymidine-dependent strain, YOSELYN=Beta-lactamase positive, CARLITOS=mcg/m;(mg/L), S*=Predicted susceptible interp, R*=Predicted resistant interp EC Antibiotic CARLITOS Dilutn CARLITOS Interp Amikacin <=16 S Ampicillin <=8 S Ampicillin/ <=8/4 S Sulbactam Aztreonam <=4 S Cefazolin <=2 S Cefepime <=2 S Cefoxitin <=8 S Ceftazidime <=1 S Ceftazidime/ <=8 S Avibactam Ceftriaxone <=1 S Ciprofloxacin <=1 S Ertapenem <=0.5 S Gentamicin <=4 S Levofloxacin <=2 S Meropenem <=1 S Nitrofurantoin <=32 S Piperacillin/ <=16 S Tazobactam Tetracycline <=4 S Tigecycline <=2 S Tobramycin <=4 S Trimethoprim/ <=2/38 S Sulfa Performing Locations R1: This test was performed at: [facility], [address] [place] [address], [id number]- , [place], [facility] Comment on above: Performed By: #### 2 [id number] ####[facility] [id number] [place] [address] Family Medicine Office/Clini c Noteon 06-23-2023 Family Medicine Office/Clinic Note Chief Complaint EST uti HPI Staff Maria Victoria, 72 yo female here today with UTI symptoms Onset- 3 days ago Frequency- yes Urgency- yes Small volume void- no Dysuria- mild Pressure- no Back pain- no Nocturia- no Fever/chills- no Nausea/vomiting- no UTI or other reason for antbx's last 30 days- yes 06/07 History of Present Illness I have reviewed and verified the staff HPI to be accurate for this encounter. Portions of this record have been created with voice recognition software. Occasional wrong-word or ?hhvph-f-tgqy? substitutions may have occurred due to the inherent limitations of voice recognition software. 72 yo female with hx of UTI presents today with cc of possible UTI. I saw pt for UTI 06/07/23. She was treated with keflex at that time. She states she felt better. She states symptoms started approximately 3 days ago urinary urgency frequency and some bladder pressure with slight burning. She denies any hematuria. She denies fever chills weakness she denies any belly pain nausea vomiting or diarrhea with her urinary symptoms. She denies any recent sick contacts or recent travel. She denies any history of kidney stones and denies flank pain today. She has no other concerns at this time. Review of Systems PHQ Score Initial Depression Screen Score: 0 ROS negative unless otherwise stated in HPI. Physical Exam Vitals & Measurements T: 36.7 ?C(Oral) HR: 64(Peripheral) BP: 128/68 SpO2: 98% HT: 60 in HT: 153 cm WT: 61.3 kg WT: 134.86 lb BMI: 26.19 General: Elderly female, no acute distress Eyes: not assessed Ears: not assessed Nose: not addressed Mouth: not assessed Neck: not assessed Lungs: Lung sounds are clear bilaterally. No wheezing rhonchi or crackles on exam. Cardio: S1, S2, regular rhythm. No murmurs gallops or rubs. Abdomen: Bowel sounds are present x4 quadrants. Abdomen is soft, nontender, nondistended. No rigidity rebound or guarding on exam. Musculoskeletal: Normal alignment of spinal column no step-offs. No localized thoracic or lumbar spine tenderness no paraspinal tenderness. No CVA tenderness. Extremity: not assessed Neurologic: not assessed Skin: No rashes, ulcerations, or suspicious lesions Mental Status: Alert and oriented x3. Normal mood and affect Assessment/Plan Patient both voiced patient in regards to plan of care. The patient previous UTI via culture was E. coli. We will treat again with Keflex 500 mg 3 times daily x7 days Pyridium 1 tablet every 8 hours as needed for urinary discomfort. Patient understands that this will turn her urine orange. She will follow closely with primary care provider as that culture is positive so she has an urinary tract infection in the last couple of weeks. At patient will increase water intake and continue to monitor. She will seek ER for evaluation if she develops any high spiking fever chills severe abdominal pain nausea vomiting flank pain or for any other concerns. Patient agrees and understands plan. 1. UTI (urinary tract infection) (N39.0: Urinary tract infection, site not specified) UA with large blood, moderate leukoctyes . Will treat with keflex 500 mg tid x 7 days. PRN pyridium rx sent for symptomatic tx. Finish course of ATB. Fluids/rest. Will cx urine and notify of results in 3-5 days. Fu with PCP if not improving over next 3-4 days with ATB or worsening. Patient verbalized understanding of tx plan. Ordered: cephalexin, 500 mg = 1 cap(s), Oral, q8hr, X 7 day(s), # 21 cap(s), Refills(s) 0, Pharmacy: [facility], 153, cm, 06/23/23 10:54:00 EDT, Height/Length Dosing, 61.3, kg, 06/23/23 10:54:00 EDT, Weight Dosing phenazopyridine, 100 mg = 1 tab(s), Oral, TID, X 3 day(s), # 9 tab(s), Refills(s) 0, Pharmacy: [facility], 153, cm, 06/23/23 10:54:00 EDT, Height/Length Dosing, 61.3, kg, 06/23/23 10:54:00 EDT, Weight Dosing 2. BMI 26.0-26.9,adult (Z68.26: Body mass index [BMI] 26.0-26.9, adult) The standard range for ages 18 and older is >=18.5 and < 25 kg/m2. Your BMI today was above this range, this falls in the overweight to obese category and there are medical benefits to weight loss. We can offer counselling, referral, and/or medical support in addressing this problem. Your BMI and weight management will be followed at subsequent visits. Ordered: cephalexin, 500 mg = 1 cap(s), Oral, q8hr, X 7 day(s), # 21 cap(s), Refills(s) 0, [facility], [facility], cm, 06/23/23 10:54:00 EDT, Height/Length Dosing, 61.3, kg, 06/23/23 10:54:00 EDT, Weight Dosing phenazopyridine, 100 mg = 1 tab(s), Oral, TID, X 3 day(s), # 9 tab(s), Refills(s) 0, [facility], 153, cm, 06/23/23 10:54:00 EDT, Height/Length Dosing, 61.3, kg, 06/23/23 10:54:00 EDT, Weight Dosing Body Mass Index (BMI) documented 3008F Frequency of urination (R35.0: Frequency of micturition) Ordered: Urine Culture Urnls Dip Stick Non-Auto w/o Micrscpy POC [id number] Follow-up With When Contact Information MICAELA NG, YUSEF Thao [facility] Med (more content not included)... [facility] Comment on above: Result Comment: Elec tronically Signed By: Keith HASTINGS, Fredy Hughes\.raina\Date and Time Signed: 06/23/23 11:18 EDT OPERATIVE NOon 06-23-2023 OPERATIVE NO HNO ID: [id number] Author: Conor Dueñas, DO Service: ? Author Type: Physician Type: Operative Report Filed: 06/23/2023 2:13 PM Note Text: Pt presents for f/u. Continues to have Rt leg pain. Wants to proceed with an injection today to address the presenting symptoms. Consent obtained. Rt side was marked in the pre-op area. Pt is aware of risks, benefits, alternatives, expected outcome, equipment and personnel. The patient was offered a procedure / surgery at a [facility] facility. It is not possible to know either the risk of delaying the surgery or procedure or chance of getting an infection with perfect accuracy, but a joint decision was made between the patient and the surgeon/proceduralist to proceed at this time with the scheduled surgery/procedure as indicated on the consent form. [facility] approved time out was performed identifying the site, side and level of procedure prior to start of procedure. [facility] - ELECTIVE PROCEDURE Lumbar Transforaminal Epidural Steroid Injection and/or Selective Nerve Root Block under Fluoroscopy Indication: Lumbar Spinal Stenosis with neurogenic claudication, Lumbar herniated nucleus pulposus, and Rt thoracolumbar radiculitis The risks and benefits of the procedure were discussed with the patient. The verbal and written informed consent of the patient was obtained. The patient was taken to the fluoroscopy suite. The patient was placed in the prone position on the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 done recently. Additionally, call us and notify us of these symptoms. Please call [phone] if you have any questions. Pt verbalized understanding. Allergies As of Date: 06/06/2023 Noted Allergy Reaction CLINDAMYCIN 09/03/2010 16 - Unknown Date Reviewed: 06/06/2023 Reviewed by: Jewell Espinoza LPN - Fully Assessed Reason for Visit: Procedure [88] Prescriptions as of 06/06/2023 - atorvastatin (LIPITOR) 10 mg tablet Take 10 mg by mouth once daily. - citalopram (CELEXA) 20 mg tablet Take 20 mg by mouth once daily. - cyanocobalamin, vitamin B-12, (VITAMIN B-12 SUBLINGUAL) - ketorolac (ACULAR) 0.5 % ophthalmic solution Use 1 Drop in both eyes twice daily. - Lactobacillus acidophilus (PROBIOTIC) 10 billion cell cap Take 1 capsule by mouth once daily. - Magnesium 250 mg tab Take 250 mg by mouth once daily. - turmeric 400 mg cap Take 400 mg by mouth once daily. - ALPRAZolam (XANAX) 1 mg ORAL tablet Take one-half (1/2) tablet daily. - Milton-3 Fatty Acids-Vitamin E (FISH OIL) 1,000 mg ORAL Cap Take one(1) tablet daily. - multivitamin (DAILY MULTI-VITAMIN) ORAL tablet Take one(1) tablet daily. - calcium carbonate 600 mg-cholecalciferol 200 units (CALCIUM 600 + D,3,) 600 mg(1,500mg) -200 unit ORAL Tab Take one(1) tablet daily. 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] 08/19/2015 Rotator cuff strain, right, initial encounter [*2017 Cuboid syndrome of right foot [S93.311A] 09/29/2017 Gluteal pain [M79.18] 12/02/2018 Primary osteoarthritis of right knee [M17.11] 06/11/2019 Chronic pain of right knee [M25.561, G89.29] 06/11/2019 Trigger ring finger of right hand [M65.341] 06/28/2019 Chronic right-sided low back pain with right-si*07/18/2019 Chronic right-sided low back pain with left-alyson*08/20/2019 Lumbosacral radiculopathy [M54.17] 08/20/2019 Chronic bilateral low back pain with bilateral *09/24/2019 Trigger finger of right hand [M65.30] 11/22/2019 Neuroforaminal stenosis of lumbosacral spine [M*03/10/2020 Encounter Status:Closed by JEWELL ESPINOZA LPN on 06/06/23 [facility] XR lumbar spine 6V w bending on 05-31-2023 XR lumbar spine 6V w bending [facility] [place] [address] [place] [address] XRay Report Signed Patient: Maria Victoria Rowan MR#: [id number] : 1950 Acct:[id number] Age/Sex: 72 / F ADM Date: 05/31/23 Loc: XD Room: Type: [facility] Attending Dr: Nicolas Ramires MD Copies to: Nicolas Ramires MD Ordering Provider: Nicolas Ramires MD Date of Service: 05/31/23 XR/XR lumbar spine 6V w bending: DDD (degenerative disc disease), lumbar LUMBAR SPINE WITH FLEXION, EXTENSION AND BENDING VIEWS- 6 views: CLINICAL HISTORY: Right-sided sciatica. No reported injury. COMPARISON: 04/01/2023 Upright AP neutral, right left bending and lateral views with neutral, flexion and extension were obtained. There is osteopenia. There is subtle thoracolumbar S-shaped scoliotic curvature. There is minimal retrolisthesis of L1 on L2 and anterolisthesis of L4 and L5. Alignment does not change significantly with flexion or extension. There are no acute fractures. There is slight disc space narrowing posteriorly at L2-3 and uniformly from L3-4 down. There are small endplate spurs. There is lower lumbar facet disease. The SI joints are intact. There are no paraspinal soft tissue abnormalities. Moderate colonic stool is visualized. XR/XR lumbar spine 6V w bending IMPRESSION: OSTEOPENIA, SUBTLE SCOLIOSIS AND DEGENERATIVE CHANGES, DESCRIBED. Impression dictated by: Vicky Ring M.D.05/31/2023 4:16 PM Dictation Location: [place] [address] Transcribed By: [facility] 05/31/231615 Dictated By: Vicky Ring MD 05/31/231613 Signed By: 05/31/231615 [facility] CNOVon 05-16-2023 CNOV Office Visit ([place] ) MARIA VICTORIA ROWAN ([id number]) 1950 F Date Time Provider Department 05/16/23 10:00 AM MARK WILSON During your visit today, we recorded the following information about you: Weight Height 59 kg 1.524 m Mark Wilson, 05/16/2023 11:20 AM Signed [facility] Office Visit Documentation Note [facility] [place] REASON FOR VISIT / CHIEF COMPLAINT SERVICE DATE: May 16, 2023 PCP: Simona Andres MD CHIEF COMPLAINT: Maria Victoria Neely is a 72 year old female who presents today for follow up office visit. Last visit for this issue 08/29/19. She has had PT and also saw Dr. Evans at [facility] 04/01/23. Patient presents with: Right Hip - Established Patient HISTORY OF PRESENT ILLNESS (HPI) PAIN EVALUATION 05/15/2023193805/16/2023 1015 Pain Level: 4 5 Pain Location: Hip-Right Hip-Right Description: Aching;Throbbing;Tingling Aching;Stabbing;Tingling Duration Amount of Time: 36 -- Duration Units: -- Months Frequency: Continuous Intermittent Intervention/Comfort measure: Medication Relaxation Brief Review: right hip pain Any new injury, since being seen last: No REVIEW OF SYSTEMS ROS: Neurologic: Any numbness or tingling in the LOCAL AREA? Yes, sole of right foot Endocrine: Any diagnosis of diabetes? No ALLERGIES ALLERGIES Allergen Reactions Clindamycin Unknown PAST MEDICAL HISTORY PAST MEDICAL HISTORY Diagnosis Date Lumbosacral radiculopathy 08/20/2019 Osteoporosis, unspecified PHYSICAL EXAMINATION PHYSICAL EXAMINATION: Body Habitus:well nourished, no acute distress, and alert and oriented Psych: normal Sensation: sensation to light touch is grossly normal bilaterally Swelling: no swelling noted Specific MSK Exam Ortho Exam Examination of right hip demonstrates good range of motion. Negative for impingement testing. Straight leg testing is bilaterally normal. Right glute is moderately weak but minimal painful and greater trochanter. Hamstring evaluation is good. DTRs are plus 2 out of 4 L4 bilateral and symmetric. Lower extremity strength is otherwise normal. RADIOLOGY: IMAGING: No imaging was performed today. ASSESSMENT / PLAN CLINICAL IMPRESSION / ASSESSMENT: (M54.17) Lumbosacral radiculopathy (primary encounter diagnosis) RECOMMENDATION / PLAN: She brings x-rays of the hip as well as MRI of the hip which I reviewed personally to demonstrate labral tear of the hip and early degenerative changes with gluteal tendinopathy. I reviewed my MSK ultrasound and previous treatment of the right lateral hip it was where she feels significantly better. Her main symptoms at this time include numbness and tingling in an L4-L5 distribution on the right. She has had multiple injections including EMG evaluation demonstrating L4-L5 right-sided pathology. My recommendation would be to consult Dr. Dueñas in the spine center for further specialized plans to care for her back pain Verbal health education was given to patient. Patient verbalizes understanding and agrees with the treatment plan as detailed above. Mark Wilson D.O. [facility] [place] Team Physician, [facility] Consulting Physician, [facility] Arielle Bender, Rehabilitation Technician [phone] Allergies As of Date: 05/16/2023 Noted Allergy Reaction CLINDAMYCIN 09/03/2010 16 - Unknown Date Reviewed: 05/16/2023 Reviewed by: Jamison Vasquez-TWIN Cheng - Fully Assessed Reason for Visit: Established Patient [175] Primary Visit Diagnosis:Lumbosacral radiculopathy [M54.17] Order(s):[facility] [[id number]] Order #: [id number]: 1 FUTURE Prescriptions as of 05/16/2023 - methylPREDNISolone (MEDROL, MIRIAM,) 4 mg Dose-Pack As Instructed per package - atorvastatin (LIPITOR) 10 mg tablet Take 10 mg by mouth once daily. - citalopram (CELEXA) 20 mg tablet Take 20 mg by mouth once daily. - cyanocobalamin, vitamin B-12, (VITAMIN B-12 SUBLINGUAL) - ketorolac (ACULAR) 0.5 % ophthalmic solution Use 1 Drop in both eyes twice daily. - Lactobacillus acidophilus (PROBIOTIC) 10 billion cell cap Take 1 capsule by mouth once daily. - Magnesium 250 mg tab Take 250 mg by mouth once daily. - turmeric 400 mg cap Take 400 mg by mouth once daily. - ALPRAZolam (XANAX) 1 mg ORAL tablet Take one-half (1/2) tablet daily. - Milton-3 Fatty Acids-Vitamin E (FISH OIL) 1,000 mg ORAL Cap Take one(1) tablet daily. - multivitamin (DAILY MULTI-VITAMIN) ORAL tablet Take one(1) tablet daily. - calcium carbonate 600 mg-cholecalciferol 200 units (CALCIUM 600 + D,3,) 600 mg(1,500mg) -200 unit ORAL Tab Take one(1) tablet daily. 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 Normal [facility] Consultation Noteon 05-11-20 Consultation Note [id number]#1.00CD:127 Normal [facility] MRI Spine Lumbar w/o Contras ton 05-05-2023 MRI Spine Lumbar w/o Contrast Exam Date/Time: 05/03/2023 09:39 EDT Reason for Exam: M51.36 M47.816 M54.16 ` Report IMPRESSION: MODERATE LUMBAR SPONDYLOSIS AND DEGENERATIVE DISC DISEASE, SUBSTANTIALLY SIMILAR TO 04/07/2022, WORST AT L4-5. EXAM: MRI Spine Lumbar w/o Contrast DATE: 05/03/2023 CLINICAL HISTORY: M51.36 M47.816 M54.16 `. COMPARISON: 09/25/2021 TECHNIQUE: Multiplanar MR imaging of the lumbar spine was performed without contrast. FINDINGS: The spine is visualized from T11-12 through S2, on the diagnostic sagittal sequences. Alignment: Lumbar lordosis is maintained. Minimal to mild degenerative retrolisthesis L1 over L2 and anterolisthesis of L4 over L5 of approximately 2 to 3 mm. Vertebral body heights and remaining alignment are maintained. Bone marrow signal/fracture: Unremarkable. Conus: The conus is within normal limits of signal intensity and morphology. Paraspinal soft tissues: Paraspinal soft tissues are unremarkable. Lower thoracic spine: Visualized lower thoracic canal and foramina are without significant narrowing. T12-L1: No significant canal or foraminal narrowing. L1-L2: Broad-based disc bulge. Endplate osteophytes. No significant canal or foraminal narrowing. L2-L3: Broad-based disc bulge. Annular fissure. Facet degenerative changes. No significant canal or foraminal narrowing. L3-L4: Broad-based disc bulge. Facet degenerative changes. Mild bilateral foraminal narrowing without significant canal narrowing. L4-L5: Broad-based disc bulge. Facet degenerative changes. Ligament hypertrophy. Moderate canal narrowing. Mild bilateral foraminal narrowing. Report L5-S1: Broad-based disc bulge. Annular fissure. Tiny central zone protrusion. Facet degenerative changes. Mild to moderate right foraminal narrowing without significant left foraminal narrowing or significant canal narrowing. Sacrum and iliac wings: The visualized sacrum and iliac wings are within normal limits. The presacral soft tissues are normal in appearance. Ordering Provider: Raudel Evans FINAL REPORT Dictated: 05/05/2023 3:30 pm Adams Kendall MD Signed (Electronic Signature): 05/05/2023 3:30 pm Signed by: Adams Kendall MD Transcribed by: MELISA Technologist: ALEXANDRA Technical Comments None [facility] Consent for Treatmenton 04-19 Consent for Treatment [id number]#1.00CD:127 Normal [facility] RAD - MRI Screening Formon 0 05-03-2023 RAD - MRI Screening Form [id number]#1.00CD:127 Normal [facility] Physician Orderon 04-25-2023 Physician Order [id number]#1.00CD:127 Normal [facility] RAD - MISCon 04-05-2023 RAD - MISC [id number]#1.00CD:127 Normal [facility] Consultation Noteon 04-04-20 Consultation Note [id number]#1.00CD:127 Normal [facility] RAD - MISCon 03-29-2023 RAD - MISC [id number]#1.00CD:127 Normal [facility] Medicine Office/Clini c Noteon 03-17-2023 [facility] Medicine Office/Clinic Note Chief Complaint Patient here for 6 month f/u on chol, anxiety, insomnia--had labs done. HPI Staff Please speak with patient about scheduling an AWV. History of Present Illness Here for med follow up. She has been feeling ok but continues to go to pain management for her chronic back pain. She has anxiety and insomnia and is on Xanax prn. also on trazodone for sleep Review of Systems PHQ Score Initial Depression Screen Score: 1 Physical Exam Vitals & Measurements T: 36.9 ?C(Oral) HR: 66(Peripheral) BP: 134/72 SpO2: 98% HT: 61 in HT: 155 cm WT: 62 kg WT: 136.4 lb BMI: 25.81 General: Well developed, well nourished, in no acute distress Eyes: Pupils equal, round, and reactive to light. Conjunctivae and sclerae normal, and extraocular movements intact Ears: grossly normal hearing Nose: No deformity, discharge, inflammation, or lesions Mouth: MMM. Oropharynx and posterior pharynx without lesions or exudates. Tongue WNL Neck: Neck supple. No lymphadenopathy. Trachea midline. No thyroid, masses, tenderness, or enlargement noted. No bruit. Lungs: Normal respiratory effort and clear to auscultation Cardio: Regular rate and rhythm, normal S1 and S2, no murmur, no rub Abdomen: Soft, non-distended, non-tender Musculoskeletal: No joint swelling or synovitis noted Extremity: No clubbing, cyanosis or edema. Neurologic: CN 2-12 intact, no focal motor or sensory defects noted. Skin: No rashes, ulcerations, or suspicious lesions Mental Status: Alert and oriented x3. Normal mood and affect Assessment/Plan 1. Insomnia (G47.00: Insomnia, unspecified) she is on trazodone and it helps also Xanax as below. 2. Hyperlipidemia (E78.2: Mixed hyperlipidemia) stay on atorvastatin lab is stable Ordered: Lipid Panel 3. Generalized anxiety disorder (F41.1: Generalized anxiety disorder) 03/17/2023 09:23:54 I certify that I have reviewed the OARRS report and all PDMP information in this chart. She is on Xanax and it is helping Ordered: CBC w/ Auto Diff Comprehensive Metabolic Panel 4. KAYLA (obstructive sleep apnea) (G47.33: Obstructive sleep apnea (adult) (pediatric)) She is on CPAP and it is benefitting her 5. Low back pain (M54.5: Low back pain) per pain management 6. Adult BMI 25.0-25.9 kg/sq m (Z68.25: Body mass index [BMI] 25.0-25.9, adult) The standard range for ages 18 and older is >=18.5 and < 25 kg/m2. Your BMI today was above this range, this falls in the overweight to obese category and there are medical benefits to weight loss. We can offer counselling, referral, and/or medical support in addressing this problem. Your BMI and weight management will be followed at subsequent visits. Ordered: Body Mass Index (BMI) documented 3008F Colorectal CA screening results documented and reviewed 3017F Current tobacco non-user 1036F Patient screen for fall risk: no falls in last year or 1 fall with no injury in last year 1101F Screening mammography documented and reviewed 3014F Follow-up With When Contact Information MICAELA NG, YUSEF Thao In 6 months [facility] [address], [place] [address]- Additional Instructions: Patient Education Insomnia Problem List/Past Medical History Ongoing GALINDO positive Anserine bursitis Arthralgia of the ankle and/or foot Biceps tendinitis Constipation Eczema Generalized anxiety disorder Hearing reduced History of malignant basal cell neoplasm of skin History of shingles Hyperlipidemia Insomnia Leukopenia Low back pain Lumbar radiculopathy KAYLA (obstructive sleep apnea) Osteoarthritis Osteopenia Tinnitus of both ears Urine abnormality Historical BMI 24.0-24.9, adult Colon polyps Procedure/Surgical History Injection of facet joint using fluoroscopic guidance (11/30/2021), Epidural injection of lumbar spine using fluoroscopic guidance (10/27/2021), Epidural injection of lumbar spine using fluoroscopic guidance (10/28/2020), Epidural injection of lumbar spine using fluoroscopic guidance (08/19/2020), Arthroscopy of knee (06/13/2020), Colonoscopy (03/18/2020), Esophagogastroduodenoscopy (03/18/2020), Cataract extraction and insertion of intraocular lens (03/27/2019), Cataract extraction and insertion of intraocular lens (03/13/2019), Excision of basal cell carcinoma (2015), Blepharoplasty (2013), Colonoscopy (2010), nose surgery (2010), Rotator cuff repair. Medications atorvastatin 10 mg Tab, 10 mg= 1 tab(s), Oral, Daily, 3 refills baclofen 10 mg Tab, 10 mg= 1 tab(s), Oral, Bedtime calcium (as carbonate) 600 mg oral tablet, 1200 mg= 2 tab(s), Oral, Daily Calcium 600+D, See Instructions CeleXA 20 mg Tab, 20 mg= 1 tab(s), Oral, Daily, 3 refills Dulcolax Stool Softener 100 mg oral capsule, 100 mg= 1 cap(s), Oral, BID, PRN Fish Oil 1000 mg oral capsule, 1000 mg= 1 cap(s), Oral, Daily magnesium oxide 400 mg Tab, 400 mg= 1 tab(s), Oral, Daily melatonin 10 mg oral capsule, 10 mg= 1 cap(s (more content not included)... Normal [facility] Comment on above: Result Comment: Elec tronically Signed By: MICAELA NG, Simona Webb\.br\Date and Time Signed: 03/17/23 09:35 EDT Medication Consenton 023 Medication Consent [id number]:127 [facility] Patient Educationon 03-17-20 23 Patient Education Mental and Behaviora Health Insomnia Insomnia is a sleep disorder that makes it difficult to fall asleep or stay asleep. Insomnia can cause fatigue, low energy, difficulty concentrating, mood swings, and poor performance at work or school. There are three different ways to classify insomnia: ? Difficulty falling asleep. ? Difficulty staying asleep. ? Waking up too early in the morning. Any type of insomnia can be long-term (chronic) or short-term (acute). Both are common. Short-term insomnia usually lasts for 3 months or less. Chronic insomnia occurs at least three times a week for longer than 3 months. What are the causes? Insomnia may be caused by another condition, situation, or substance, such as: ? Having certain mental health conditions, such as anxiety and depression. ? Using caffeine, alcohol, tobacco, or drugs. ? Having gastrointestinal conditions, such as gastroesophageal reflux disease (GERD). ? Having certain medical conditions. These include: ? Asthma. ? Alzheimer's disease. ? Stroke. ? Chronic pain. ? An overactive thyroid gland (hyperthyroidism). ? Other sleep disorders, such as restless legs syndrome and sleep apnea. ? Menopause. Sometimes, the cause of insomnia may not be known. What increases the risk? Risk factors for insomnia include: ? Gender. Females are affected more often than males. ? Age. Insomnia is more common as people get older. ? Stress and certain medical and mental health conditions. ? Lack of exercise. ? Having an irregular work schedule. This may include working night shifts and traveling between different time zones. What are the signs or symptoms? If you have insomnia, the main symptom is having trouble falling asleep or having trouble staying asleep. This may lead to other symptoms, such as: ? Feeling tired or having low energy. ? Feeling nervous about going to sleep. ? Not feeling rested in the morning. ? Having trouble concentrating. ? Feeling irritable, anxious, or depressed. How is this diagnosed? This condition may be diagnosed based on: ? Your symptoms and medical history. Your health care provider may ask about: ? Your sleep habits. ? Any medical conditions you have. ? Your mental health. ? A physical exam. How is this treated? Treatment for insomnia depends on the cause. Treatment may focus on treating an underlying condition that is causing the insomnia. Treatment may also include: ? Medicines to help you sleep. ? Counseling or therapy. ? Lifestyle adjustments to help you sleep better. Follow these instructions at home: Eating and drinking ? Limit or avoid alcohol, caffeinated beverages, and products that contain nicotine and tobacco, especially close to bedtime. These can disrupt your sleep. ? Do not eat a large meal or eat spicy foods right before bedtime. This can lead to digestive discomfort that can make it hard for you to sleep. Sleep habits ? Keep a sleep diary to help you and your health care provider figure out what could be causing your insomnia. Write down: ? When you sleep. ? When you wake up during the night. ? How well you sleep and how rested you feel the next day. ? Any side effects of medicines you are taking. ? What you eat and drink. ? Make your bedroom a dark, comfortable place where it is easy to fall asleep. ? Put up shades or blackout curtains to block light from outside. ? Use a white noise machine to block noise. ? Keep the temperature cool. ? Limit screen use before bedtime. This includes: ? Not watching TV. ? Not using your smartphone, tablet, or computer. ? Stick to a routine that includes going to bed and waking up at the same times every day and night. This can help you fall asleep faster. Consider making a quiet activity, such as reading, part of your nighttime routine. ? Try to avoid taking naps during the day so that you sleep better at night. ? Get out of bed if you are still awake after 15 minutes of trying to sleep. Keep the lights down, but try reading or doing a quiet activity. When you feel sleepy, go back to bed. General instructions ? Take xsjm-bsz-jyrtdlz and prescription medicines only as told by your health care provider. ? Exercise regularly as told by your health care provider. However, avoid exercising in the hours right before bedtime. ? Use relaxation techniques to manage stress. Ask your health care provider to suggest some techniques that may work well for you. These may include: ? Breathing exercises. ? Routines to release muscle tension. ? Visualizing peaceful scenes. ? Make sure that you drive carefully. Do not drive if you feel very sleepy. ? Keep all follow-up visits. This is important. Contact a health care provider if: ? You are tired throughout the day. ? You have trouble in your daily routine due to sleepiness. ? You continue to have sleep problems, or your sleep prob (more content not included)... Normal [facility] Auto Diffon 03-14-2023 Basophils/100 WBC (Bld) 0.5 % Normal 0.0-2.0 [facility] Comment on above: Order Comment: Order Added by Discern Expert. Performed By: #### 2 516126, 2368415, 0428334, 63601506, 8502292 ####[facility] [address] [place] [address] Basophils/Leukocyte s Auto (Bld) [Pure # fraction] 0.0 E9/L Normal 0.0-0.2 [facility] Comment on above: Order Comment: Order Added by Discern Expert. Performed By: #### 2 828687, 1170465, 5873532, 36387014, 6015054 ####[facility] [address] [place] [address] Eosinophils/100 WBC (Bld) 1.8 % Normal 0.0-8.0 [facility] Comment on above: Order Comment: Order Added by Discern Expert. Performed By: #### 2 861354, 3442965, 4863152, 79761905, 8158725 ####[address] [address] Eosinophils/Leukocy leonel Auto (Bld) [Pure # fraction] 0.1 E9/L Normal 0.0-0.5 [facility] Comment on above: Order Comment: Order Added by Discern Expert. Performed By: #### 2 071980, 4270546, 4906109, 49510450, 0502673 ####[address] [address] Lymphocytes/100 WBC (Bld) 36.9 % Normal 14.0-50.0 [facility] Comment on above: Order Comment: Order Added by Discern Expert. Performed By: #### 2 667968, 1142808, 6990086, 65985106, 6385971 ####[address] [address] Lymphocytes/Leukocy leonel Auto (Bld) [Pure # fraction] 2.3 E9/L Normal 1.0-4.0 [facility] Comment on above: Order Comment: Order Added by Discern Expert. Performed By: #### 2 931587, 2498574, 2628354, 81919703, 5721529 ####[address] [address] Monocytes/100 WBC (Bld) 11.6 % Normal 4.0-14.0 [facility] Comment on above: Order Comment: Order Added by Discern Expert. Performed By: #### 2 143051, 0374623, 5831487, 59396975, 5769482 ####[address] [address] Monocytes/Leukocyte s Auto (Bld) [Pure # fraction] 0.7 E9/L Normal 0.2-1.0 [facility] Comment on above: Order Comment: Order Added by Discern Expert. Performed By: #### 2 005432, 5138361, 6831191, 39831412, 7909747 ####[address] [address] Neutrophils/100 WBC (Bld) 49.2 % Normal 36.0-75.0 [facility] Comment on above: Order Comment: Order Added by Discern Expert. Performed By: #### 2 614613, 1024290, 9162870, 33219984, 8343192 ####[address] [address] Neutrophils/Leukocy leonel Auto (Bld) [Pure # fraction] 3.1 E9/L Normal 2.0-7.5 [facility] Comment on above: Order Comment: Order Added by Discern Expert. Performed By: #### 2 818463, 5545268, 5623335, 30009786, 7951536 ####[address] [address] CBC w/ Auto Diffon Erythrocyte distribution width (RBC) [Ratio] 13.3 % Normal 10.9-14.2 [facility] Comment on above: Performed By: #### 2 117039, 8625559, 7269139, 96210628, 6717253 ####[address] [address] Hematocrit (Bld) [Volume fraction] 38.0 % Normal 34.0-46.0 [facility] Comment on above: Performed By: #### 2 555209, 7658158, 6396156, 79047893, 0919122 ####[address] [address] Hemoglobin (Bld) [Mass/Vol] 12.7 g/dL Normal 12.0-16.0 [facility] Comment on above: Performed By: #### 2 272201, 6187912, 3925560, 34950949, 3196325 ####[facility] [address] [place] [address] MCH (RBC) [Entitic mass] 32.7 pg Normal 27.0-34.0 [facility] Comment on above: Performed By: #### 2 380551, 3629421, 4665336, 06858649, 0862557 ####[place] [address]38257 MCHC (RBC) [Mass/Vol] 33.5 g/dL Normal 31.4-36.0 [facility] Comment on above: Performed By: #### 2 144009, 0286750, 3896291, 18897162, 8146853 ####[place] 1838257 MCV (RBC) [Entitic vol] 97.4 fL Normal 80.0-100.0 [facility] Comment on above: Performed By: #### 2 722579, 2243175, 0434038, 23602924, 4578193 ####[address] [address] Platelet mean volume (Bld) [Entitic vol] 7.7 fL Normal 6.4-10.8 [facility] Comment on above: Performed By: #### 2 231212, 5623416, 0097423, 09693378, 8978997 ####[address] [address] Platelets (Bld) [#/Vol] 294.0 E9/L Normal 150.0-500.0 [facility] Comment on above: Performed By: #### 2 823042, 8553007, 5885716, 01437666, 8184288 ####[place] 1838257 RBC (Bld) [#/Vol] 3.9 E12/L Low 4.3-5.9 [facility] Comment on above: Performed By: #### 2 673811, 4360709, 1554057, 74917317, 3757258 ####[facility] [address] [place] [address] WBC corrected for nucl RBC Auto (Bld) [#/Vol] 6.3 E9/L Normal 4.0-11.0 [facility] Comment on above: Performed By: #### 2 844376, 4666177, 3159760, 46657041, 1169334 ####[facility] [address] [place] [address] CHEMISTRYOrdered By: SYSTEM SYSTEM on 03-14-2023 Albumin [Mass/Vol] 4.2 g/dL Normal 3.3 - 5.0 gm/dL [facility] Albumin/Globulin [Mass ratio] 1.4 {ratio} Normal 1.1 - 2.2 [facility] ALP [Catalytic activity/Vol] 55 [iU]/d Normal 21 - 98 Int._Unit/L [facility] ALT No additional P-5'-P [Catalytic activity/Vol] 25 [iU]/d Normal 6 - 46 Int._Unit/L [facility] Anion gap [Moles/Vol] 10 mmol/L Normal 6 - 16 mEq/L [facility] AST [Catalytic activity/Vol] 23 [iU]/d Normal 5 - 43 Int._Unit/L [facility] Bilirubin [Mass/Vol] 0.7 mg/dL Normal 0.0 - 1.1 mg/dL [facility] Calcium [Mass/Vol] 10.0 mg/dL Normal 8.9 - 11. 1 mg/dL [facility] Chloride [Moles/Vol] 101 mmol/L Normal 101 - 111 mmol/L [facility] Cholesterol [Mass/Vol] 194 mg/dL Normal 120 - 200 mg/dL [facility] Cholesterol in HDL [Mass/Vol] 68 mg/dL Invalid Interpretation Code [facility] Cholesterol in LDL [Mass/Vol] 108 mg/dL Normal <=129mg/dL [facility] Cholesterol in VLDL [Mass/Vol] 9 mg/dL Normal 7 - 40 mg/dL [facility] CO2 [Moles/Vol] 28 mmol/L Normal 21 - 31 mmol/L [facility] Creatinine [Mass/Vol] 0.7 mg/dL Normal 0.5 - 1.3 mg/dL [facility] GFR/1.73 sq M.predicted among non-blacks MDRD (S/P/Bld) [Vol rate/Area] 91 mL/min/1.73 m2 Normal >=59mL/min/ 1.73 m2 [facility] Chem S Globulin (S) [Mass/Vol] 3.0 g/dL Normal 1.4 - 4.0 gm/dL [facility] Glucose [Mass/Vol] 78 mg/dL Normal 55 - 199 mg/dL [facility] Potassium [Moles/Vol] 3.9 mmol/L Normal 3.5 - 5.3 mmol/L [facility] Protein [Mass/Vol] 7.2 g/dL Normal 6.0 - 7.8 gm/dL [facility] Sodium [Moles/Vol] 135 mmol/L Normal 135 - 145 mmol/L [facility] Triglyceride [Mass/Vol] 44 mg/dL Normal <=149mg/dL [facility] Urea nitrogen [Mass/Vol] 23 mg/dL High 5 - 21 mg/dL [facility] Urea nitrogen/Creatinine [Mass ratio] 33 mg/mg High 10 - 20 [facility] CMPon 03-14-2023 Albumin [Mass/Vol] 4.2 g/dL Normal 3.3-5.0 [facility] Comment on above: Performed By: #### 2 347081, 0741194, 7761520, 55337165, 7235611 ####[facility] [address] [place] [address] Albumin/Globulin (S) [Mass conc ratio] 1.4 Normal 1.1-2.2 [facility] Comment on above: Performed By: #### 2 360427, 6099677, 8499122, 38507182, 5261117 ####[facility] [address] [place] [address] ALP [Catalytic activity/Vol] 55 Int._Unit/L Normal 21-98 [facility] Comment on above: Performed By: #### 2 207183, 8787966, 8871264, 80983556, 8949782 ####[facility] [address] [place] [address] ALT No additional P-5'-P [Catalytic activity/Vol] 25 Int._Unit/L Normal 6-46 [facility] Comment on above: Performed By: #### 2 952772, 8817552, 5277000, 64703543, 9601080 ####[facility] [address] [place] [address] Anion gap [Moles/Vol] 10 mmol/L Normal 6-16 [facility] Comment on above: Performed By: #### 2 351058, 7128695, 0680789, 37435372, 0147202 ####[facility] [address] [place] [address] AST [Catalytic activity/Vol] 23 Int._Unit/L Normal 5-43 [facility] Comment on above: Performed By: #### 2 589181, 8369372, 0466637, 77825395, 5335160 ####[facility] [address] [place] [address] Bilirubin [Mass/Vol] 0.7 mg/dL Normal 0.0-1.1 [facility] Comment on above: Performed By: #### 2 722719, 6088835, 3942181, 34169117, 1646844 ####[facility] [address] [place] [address] Calcium [Mass/Vol] 10.0 mg/dL Normal 8.9-11.1 [facility] Comment on above: Performed By: #### 2 007504, 0473333, 5660713, 92954369, 9828789 ####[facility] [address] [place] [address] Chloride [Moles/Vol] 101 mmol/L Normal 101-111 [facility] Comment on above: Performed By: #### 2 154832, 7760177, 4172851, 46940634, 7482439 ####[facility] [address] [place] [address] CO2 [Moles/Vol] 28 mmol/L Normal 21-31 [facility] Comment on above: Performed By: #### 2 098240, 2904158, 5920054, 59039447, 7642138 ####[facility] [address] [place] [address] Creatinine [Mass/Vol] 0.7 mg/dL Normal 0.5-1.3 [facility] Comment on above: Performed By: #### 2 243995, 7369756, 6470668, 06272909, 6418417 ####[facility] [address] [place] [address] Globulin (S) [Mass/Vol] 3.0 g/dL Normal 1.4-4.0 [facility] Comment on above: Performed By: #### 2 669531, 8788423, 6807738, 46974884, 0757276 ####[facility] [address] [place] [address] Glucose [Mass/Vol] 78 mg/dL Normal 55-199 [facility] Comment on above: Result Comment: If t his glucose result represents a fasting glucose, interpretation should refer to the following reference range: 55-99 mg/dL Performed By: #### 2 719262, 8432309, 1196284, 27271548, 9750652 ####[facility] [address] [place] [address] Potassium [Moles/Vol] 3.9 mmol/L Normal 3.5-5.3 [facility] Comment on above: Performed By: #### 2 649586, 3063180, 9520554, 05464561, 0317170 ####[facility] [address] [place] [address] Protein [Mass/Vol] 7.2 g/dL Normal 6.0-7.8 [facility] Comment on above: Performed By: #### 2 713370, 5328756, 5726999, 85905822, 1951162 ####[facility] [address] [place] [address] Sodium [Moles/Vol] 135 mmol/L Normal 135-145 [facility] Comment on above: Performed By: #### 2 313502, 7324469, 3153470, 29210078, 3319698 ####[facility] [address] [place] [address] Urea nitrogen [Mass/Vol] 23 mg/dL High 5-21 [facility] Comment on above: Performed By: #### 2 108913, 2302260, 6791465, 50295234, 6216999 ####[facility] [address] [place] [address] Urea nitrogen/Creatinine [Mass ratio] 33 No Units High 10-20 [facility] Comment on above: Performed By: #### 2 024732, 8129437, 7548311, 19393502, 3122288 ####[facility] [address] [place] [address] Consent for Treatmenton 02-18 Consent for Treatment [id number]#1.00CD:127 Normal [facility] HEMATOLOGYOrdered By: SYSTEM SYSTEM on 03-14-2023 Basophils/100 WBC (Bld) 0.5 % Normal 0.0 - 2.0 % [facility] HemeAutoSS Basophils/Leukocyte s Auto (Bld) [Pure # fraction] 0.0 E9/L Normal 0.0 - 0.2 E9/L [facility] HemeAutoSS Eosinophils/100 WBC (Bld) 1.8 % Normal 0.0 - 8.0 % [facility] HemeAutoSS Eosinophils/Leukocy leonel Auto (Bld) [Pure # fraction] 0.1 E9/L Normal 0.0 - 0.5 E9/L [facility] HemeAutoSS Lymphocytes/100 WBC (Bld) 36.9 % Normal 14.0 - 50.0 % [facility] HemeAutoSS Lymphocytes/Leukocy leonel Auto (Bld) [Pure # fraction] 2.3 E9/L Normal 1.0 - 4.0 E9/L [facility] HemeAutoSS Monocytes/100 WBC (Bld) 11.6 % Normal 4.0 - 14.0 % [facility] HemeAutoSS Monocytes/Leukocyte s Auto (Bld) [Pure # fraction] 0.7 E9/L Normal 0.2 - 1.0 E9/L [facility] HemeAutoSS Neutrophils/100 WBC (Bld) 49.2 % Normal 36.0 - 75.0 % [facility]eAuto[facility] Neutrophils/Leukocy leonel Auto (Bld) [Pure # fraction] 3.1 E9/L Normal 2.0 - 7.5 E9/L [facility] HemeAutoSS HEMATOLOGYOrdered By: Nicci tong on 03-14-2023 Erythrocyte distribution width (RBC) [Ratio] 13.3 % Normal 10.9 - 14.2 % [facility] Hematocrit (Bld) [Volume fraction] 38.0 % Normal 34.0 - 46.0 % [facility]eAuto[facility] Hemoglobin (Bld) [Mass/Vol] 12.7 g/dL Normal 12.0 - 16.0 gm/dL [facility]eAutoSS MCH (RBC) [Entitic mass] 32.7 pg Normal 27.0 - 34.0 pg [facility]eAutoSS MCHC (RBC) [Mass/Vol] 33.5 g/dL Normal 31.4 - 36.0 gm/dL [facility]eAutoSS MCV (RBC) [Entitic vol] 97.4 fL Normal 80.0 - 100.0 fL [facility]eAutoSS Platelet mean volume (Bld) [Entitic vol] 7.7 fL Normal 6.4 - 10.8 fL [facility]eAutoSS Platelets (Bld) [#/Vol] 294.0 E9/L Normal 150.0 - 500.0 E9/L [facility]eAuto[facility] RBC (Bld) [#/Vol] 3.9 E12/L Low 4.3 - 5.9 E12/L [facility] WBC corrected for nucl RBC Auto (Bld) [#/Vol] 6.3 E9/L Normal 4.0 - 11.0 E9/L [facility]eAutoSS Lipid Panelon 03-14-2023 Cholesterol [Mass/Vol] 194 mg/dL Normal 120-200 [facility] Comment on above: Performed By: #### 2 356476, 5787664, 6581204, 13336746, 3246138 ####[facility] [address] [place] [address] Cholesterol in HDL [Mass/Vol] 68 mg/dL Invalid Interpretation Code [facility] Comment on above: Result Comment: HDL > or equal to 60 mg/dL: Low cardiovascular risk HDL < 40 mg/dL : High cardiovascular risk Performed By: #### 2 388606, 5925395, 9660633, 06955096, 1053259 ####[facility] [address] [place] [address] Cholesterol in LDL [Mass/Vol] 108 mg/dL Normal <=129 [facility] Comment on above: Performed By: #### 2 354868, 9247087, 5656049, 31660831, 8113790 ####[facility] [address] [place] [address] Cholesterol in VLDL [Mass/Vol] 9 mg/dL Normal 7-40 [facility] Comment on above: Performed By: #### 2 099895, 9890359, 8974661, 17113533, 0160353 ####[facility] [address] [place] [address] Triglyceride [Mass/Vol] 44 mg/dL Normal <=149 [facility] Comment on above: Performed By: #### 2 669415, 4790636, 1868677, 56132189, 4804802 ####[facility] [address] [place] [address] eGFRon 03-14-2023 GFR/1.73 sq M.predicted among non-blacks MDRD (S/P/Bld) [Vol rate/Area] 91 mL/min/1.73 m2 Normal >=59 [facility] Comment on above: Order Comment: Order added by Discern Expert. Result Comment: [employer] Operations Manager jeremiah kidney disease could be indicated at eGFR's of less than 60 mL/min/1.73m2. Kidney failure is indicated at less than 15 mL/min/1.73m2. Performed By: #### 2 531934, 9832922, 3239945, 54795110, 0316071 ####[facility] [address] [place] [address] Consultation Noteon 03-07-20 Consultation Note [id number]#1.00CD:127 Normal [facility] RAD - MISCon 03-07-2023 RAD - MISC [id number]#1.00CD:127 Normal [facility] RAD - MISC [id number]#1.00CD:127 Normal [facility] MM special view LT w/CADon 0 02-21-2023 MM special view LT w/CAD [facility] [address] [place] [id number] Mammography Report Signed Patient: Maria Victoria Rowan MR#: [id number] : 1950 Acct:[id number] Age/Sex: 72 / F ADM Date: 02/21/23 Loc: DC Room: Type: [facility] Attending Dr: Linus Arriola DO Copies to: MD Linus Dutta DO Ordering Provider: Linus Arriola DO Date of Service: 02/21/23 MM/MM special view LT w/CAD: ABN MAMM CLINICAL DATA: Follow-up left breast asymmetry. LEFT DIAGNOSTIC MAMMOGRAMS - FULL FIELD DIGITAL WITH TOMOSYNTHESIS AND CAD Tomosynthesis true lateral and spot compression craniocaudal and mediolateral oblique views of the left breast were obtained using low-dose digital technique. Comparison is made to prior studies from January 29, 2019 through February 04, 2023. This examination was reviewed with the aid of CAD. There are scattered fibroglandular densities. The nodular asymmetry indicated on the comparison MLO view is an intramammary lymph node with fatty hilus. This is seen previously and not significantly changed. Benign and vascular calcifications are present. There are no other suspicious masses, typically malignant calcifications or architectural distortion. There has been no significant interval change. MM/MM special view LT w/CAD IMPRESSION: BENIGN INTRAMAMMARY LYMPH NODE. NO MAMMOGRAPHIC EVIDENCE OF MALIGNANCY. ROUTINE FOLLOW-UP IS RECOMMENDED IN ONE YEAR. RESULT CODE: 2 Benign Findings(s) DENSITY CODE: 2 (approximately 25-50% glandular) FOLLOW UP: 1YR The false-negative rate of mammography is approximately 10-percent. Management of a palpable abnormality must be based on clinical grounds. Patient was entered into a reminder system with a target due date for the next mammogram. Impression dictated by: Vicky Ring M.D.02/21/2023 8:26 AM Dictation Location: [facility] Transcribed By: [facility] 02/21/23825 Dictated By: Vicky Ring MD 02/21/23820 Signed By: 02/21/23825 [facility] Outside Mammographyon 2022 Outside Mammography [id number]#1.00CD:127 [facility] MM screening mammo BI w/CADo n 02-04-2023 MM screening mammo BI w/CAD [place] [address] Mammography Report Signed Patient: Maria Victoria Rowan MR#: [id number] : 1950 Acct:[id number] Age/Sex: 72 / F ADM Date: 02/04/23 Loc: DC Room: Type: [facility] Attending Dr: Linus Arriola DO Copies to: MD Linus Dutta DO Ordering Provider: Linus Arriola DO Date of Service: 02/04/23 MM/MM screening mammo BI w/CAD: screening;Breast cancer screening CLINICAL DATA: Screening for malignancy. SCREENING MAMMOGRAM - FULL FIELD DIGITAL WITH TOMOSYNTHESIS AND CAD COMPARISON:Mammograms dating back to 2019 Tomosynthesis craniocaudal and mediolateral oblique views of both breasts were obtained using low- dose digital technique. This examination was reviewed with the aid of CAD. The breast tissue is composed of scattered fibroglandular densities. There are no dominant masses, typically malignant calcifications or architectural distortion. Asymmetry superior aspect of the left breast, posterior depth on MLO view only. MM/MM screening mammo BI w/CAD IMPRESSION: Asymmetry superior aspect of the left breast, posterior depth on MLO view only. SPOT COMPRESSION/TRUE LATERAL VIEWS, POSSIBLE ULTRASOUND ARE RECOMMENDED. RESULT CODE: 0 Incomplete: Needs Additional Imaging Evaluation DENSITY CODE: 2 (approximately 25-50% glandular) FOLLOW UP: ADD The false-negative rate of mammography is approximately 10-percent. Management of a palpable abnormality must be based on clinical grounds. Patient was entered into a reminder system with a target due date for the next mammogram. Impression dictated by: Yomi Mccain Jr., Darlene02/04/2023 1:01 PM Dictation Location: [facility] Transcribed By: [facility] 02/04/23 1301 Dictated By: Yomi Mccain Jr, DO 02/04/23 1259 Signed By: 02/04/23 1301 [facility] Outside Mammographyon 2022 Outside Mammography [id number]#1.00CD:127 Normal [facility] Consultation Noteon 01-28-20 Consultation Note [id number]#1.00CD:127 Normal [facility] Consultation Noteon 12-30-19 Consultation Note [id number]#1.00CD:127 Normal [facility] Coding Summary.on 12-17-2022 Coding Summary. CD:[id number] Ww+PGhlY WQ+MC8WCIZnN01uxFHpnN9pC1FAG UnCLlngUGHUTDnZHbOkdbOwPO4vx XNjZXJu IC8+FS6cMZSvOrmneGTsf1P2hMA9 V59qqz7oXPrccFD4WLLuQuFuvdgw a3lunJs5ISbqBelgLvSt MBFyyT27OLT1dF25Rw31tIInfCEi r6gijZu6YgHjLFKvBKV1lHdsEEtb f7QhJYXrV80xyKHxf2S2 WKLlmRghkTSbNtWurWY8iX5kBUvp zylku5smealhHbo2im84sVVbs4K2 uSB7I0JcxoD0DFNrbCTi WsqrvCFZvM8xrzclo6eucctwNrNz PIKcSEg9FQh7KSYviQysLpPaHQ97 XHG6EHTuktVgC6QzUOSv tGlxDsU2k2S1Xm7ZP1DVGoupT5GF TUFSWTwvdGQ+RS52mh57A9AyIwta Abb4JFCqXFB1yQT8gW4t FVZkBGswk2E4fZE1C8BithAjua1a i9bjLMChDTrjF68kuLZmm1P9IFLu pUU2GKNywIgcShAbwC89 Oyc+IUGaqJzyb9FfUdejr2uxa0cy yNl2JujoQXQpqkLwuEnnUPJ0m7Kg Kv4cFBSqkZQ4gXH2vD6g LhPrVuG1WLzpX138OeXfuGNxLpke E64qR7OqeHT+GGXgTxi9PARitNiv FV1eB9JyVORaswaijSQn oJtdCM4cIRVhrfkxMZXndE3sVBNe P4o6YpYpWkX8FTbpT3ZsNSCycwvp Xm15dO4gPgVvZxW2QBhe J8QcbyG9CGTtdVGiCClmLLF0J65e y7Q6QVKaKCRyEKE1sSA8yN7fsAcz bjogbGVmdDsgdmVydGlj AAzsKIjzH536LWKwfPguSbXkJLmr ZyBEYXRlOiAgMDMvMzEvMjAyMzwv dGQ+MKOpTKO8tGbaIKKz gXNfVWoyIs6ofOqhyHygVZ3mGBSx eungBEPoxY1eEUHguXBrmBzrDS9v VEAqcaxqh724IaIzWSI0 MNHbxMItC9LpdF0uVsRsQCMpFKUj W8CeyPCwBAplG845YDoyWtX2QTGq lfJwB9VaSRDsoPyyXiJ7 b8L5Fh0Ri7ZkinhdZ5OqjWSkVuTg GpbwRRw2Y1CtIidvgZK+IU02DFSx LO77KMo7VUG4lUghZPif FGMzC8EitF2vXzQiXWPfYKDgAmx+ PHRhYmxlIHdpZHRoPScxMDAlJyBz dLycPK4kBd1rQJPbCOSo kCsogCVvOzSsh8riXHXkKBmkDH4m lCaqE4UnsNB2PAXii5m9Zk35S66i A1NrjOT+WKHgdPF5uDE2 lN4sAoWvOdF8YXbbB287DgAeiIMn Ypkbd2rke3cibHv7LsT8BQDbmoQe wVlhKWD8e6RuFs43M38p JPzrJZInILRbIAJrNEDjeNdlke1s hZ8pTq9+FNZpwKF2cED1mT8cPaGp VnF3ZFwaG361VwDwuABf Lpiha2hdb1qtwVa4RqWsJTKhanQp oGlnXIJ5w1JhLa83Y9LlyVelg0Wy Efn6wz69uXNoy9V5qVC4 B8UmZRPfvwsvoXRbxKiuJR5qTZOn zuxhUQHspP7yHHPbJ5b1XjWiUxS4 SHucE7XotrB2JDGqnHWx GINfwAMLiD3aglwnn0sgnuqnGnYj RWUxTPq6MWu7FPIptXlkBwPsJPJ3 YsQ9MVE4qQXyuM8rnYdk ejwliP8qXab+LFO0tCSrvWDOIU0d OjwvdGQ+QXZxEDA9kUlmZFlpTDJw bA3pVDKoS1w7UvHpKaV9 LXvhA5BhmoY1OEDxsAKcEULdtFGT mJ2oxbwnr0tqjvsrGtWtQUBiTTq2 QCs6UZUhqZmpYcRkSVU1 UvH0RCV5cCMycR6vdOiskcbluN8n Oyc+GfgcwRmfSKZ2KTc6Z4YkYob1 YWWivVupAY0hnSCwDIap Zh8itRnhmBwtAX1fPUBhtrizy634 ZnIip7ycAIXqeGPkLEreVMD3I56v y5H5POUxZRAqEZO5hZX9 pA4yxInrbvcpaDDunZwlmbRibAmq WBjmCYqhF387KGYujYtzJnFoOGq8 N8YrWet8BUYzkKzxJQ0l pIFdHMpwRd9leQvfxEyqNU3rVPEe jwios470CqQus4qvRPGrhNJrSLnc FMF4F40rx1O9KFEkQKZg ILH9eTG3lI8bjMsewnrskAOyhFgp wuJfhZrrVUnoKGxdX202MSBzbLgg VgXktJl7Z0NdZoi6EZLh eHvoCR7euFUgOPgySd0ewCjrlKrr IX2aAQQeytmuf854OlYsu3euDNAw oRQxMZemJTG5T15ch0Y2 JWMlRXKiSDC2vPM6rG5shVolkykn nVIosCmdtzXctYrfNNtkCDhuC461 IHRvcDsnPlBhdGllbnQg APopENz5E5YjGbieiWO+IZ87ESQh IO54bNGswLGme1moaFo8PcGhHDAq MED9hRhsOKymv1XxAEGp G72fxSYow5Q8DAVpaRcggIDgDoAj kNV4gR5aQLpmvuook5sfvhwtCpdj a6osal97aC92L87uBRrz BFDkBJNdZPUfEZEgnEqpbq4ivY8o Ii8+ZZCtsMB7xBT6hZ5gZBOxXaB3 OUotQ209OeRmkFDiVdjp l4oyc8tskFp4BzG5SCFyazCciDlb OQQ8k4JqXz77L35vRNqrKXLvMESk PKVoYPAkpSuieu7ruP9f Ii8+JAEmkND7rLU7bP4lEtVgOvO1 HIcgH211BtUxxYBgJnzyJ33qM9Yl dXA+TVVsEmf7PXTtrIwq PO9uuMUlXHzhXh4yWWF6TkZgXfEk YQyoF9IpLNQkncdlpbpurQN0ZVLg YOUqjV00Db6glVeeBNFm aSZXjD2xpasyj2zpidvsOiAcBRRc LMz4DSr4RIKyuThuVrKlWRT8JaB1 TUO4kIGwhN9qjAcrwceu kO6aR2WyENUdjlvuSh03gA9jIsQr OdT0KKlmVjz+U72CARusNPWUL06G DNCAAMDXGJVUDG05CW75 lUIwu8X8mJV3T8QlKYMdyvbomgtu fLP2YRGrLRGliJ56mBStJBwsNe5g u7C5y723QFCwLSHzhB34 Ro2iyRhxSTQqhZLDeM6bwfmdz1ra tzsgDePqZWIkYMk9MLw6WJAzmWos IcCeRTC3NrY1EAX7yPTm tH2dtScjbxcjxQ0gUeh+MTEvMDkv LUd3RYphiKH+QQQrNQS3sAodGUut EXYgpT3fLHQuK6l2MeSm HnZ0MUkwS0XiQZXwkxnnBg13rG3d TxOdLrG0GZscY8LxgfF7RYJddJXx GDlaQLI4W99kt6H0VYJd NWFbUYC0mDQ2vH8exJidzjisoSOy bEwwmvIkyJdfYHfhHJkzF189HYKn iEujRux4HBvwGNVtTE04 YP87qOKdx6B9lIL1A4KsZVPpnoxk yxdynHE2FZIcRRHvpO69hHJfIXml Vj3rk9Z4q818UCIzRYEv hX65Qt1ojActJMAdjUQEmD7amfij l7bisqyaZlCnGUHlHZu0SQt7RCDi aNuqMwMmVAQ0CiT3PGW7 hWKbsG7hkZrlcchdgZ4hSph+RmVt KUeyPJ73VN09tMHwr5N2nHD2G2Bw RCUudaetglqtgCJ7VFBs TAYwxL43yYMvTAqoFn4zf2P8c673 QPNuODMrvT74Ow1ycHebJTOnfMYX tX2udgbuv4jzvpzkWeNw FGIkTJy0NAn3PNPduOavCjHgVPV3 DbR2GAP1hLXdyX0isBqldbaicR5m Oyc+S6S6gAG7rPCwrCch dGQ+EH24gl64I5QvAsucZpa8FNOa BUX6qDB0vR5vQBRoSCwff5F2bPT4 K5NyhkXljz7ps9crKGRz VDwmS42ksVCob8O6QYCaiWF1ZNIg hWogFcQhxX99Ibq+THHeqQyzu9Nn Uyfjb2jbz5zthCe0YzPf YGHdivDdrPdyKGQ3w1KwLj78R52e TNutLOBgFRNfSGLwGEWpkCwary2s yD5iVq0+RLRriZB7aND6 gY8eByOiUsK2PZoyP796CaHktWKt Lyowo0txh7kgxIf8VuTlHUTdkvBo uFrcKPK3h0TmHv02O2Pj pHxxc9DhRvp6gj75bPNau1Z2aKS1 I6FqIKFqauvtjHEtkHpeGJ7uXGGw syraHDPacN8zAXYcT5q6 XqMgBwX3BWkiB4ChnpB4XKAahPIx APIvkCZOzK4zwczqu9kwblrgAqId FBEsLEb5SCg5XZRymPev XiIpWJI9GhK2SBK7wJKunP0caEha zjessX2bXid+SPh6b6irbIBdLP1s nMH2PD72YI47pDJub7W4 uOU1I1MfHGTwcihdpqwfiIP0CSMc RIXemH11Os5czRevQd5lZWAgHWI2 OEGobOGpV7DbuZ3cVzNs WNEqQJEiE5IopEQhDGjuV645VAsr ObI1SKAaikTdB4YkSBDknXpsVdI0 c1F8Db4NUU85DB16QR95 eIIus8Q7eOU5J0QqZSLghzfzqwsl pPN4CJZyQPAelB99Sg6mxArmLg6i FTHgCCH9ZSKsqBThT4Pn xV6mZmLiPGPoBECnC8IqaVXaSJal O194YGzyYfD1SQPuipEfG7MgFAEp bUdeRwC1v6U7Wt3YUa22 [id number] jltsyziuqCM5QIIiGFGjrD72Xa3a sQcfFk6yMFVzLXO5NKDa nNTzX8UmpU8gBrRfSYVpBKWxK7Am dFWoUIhsG443ULriFdC0RGUkrcNc Z9AqDLJsaRctQyL8e7Z2 Cd1IDQxvdil6P3DiAsntdTU+PC90 HRBjKA59xHBbaBOrn8lqjDm5YfIa AZJjKBX2kUthXMphy2Vf ZEXlS84h (more content not included)... Normal [facility] Patient History Officeon Patient History Office [id number]:127 Normal [facility] Consent for Treatmenton 11-18 Consent for Treatment [id number]:127 Normal [facility] Heart and Vascular Office/Cl inic Noteon 12-10-2022 Heart and Vascular Office/Clinic Note History of Present Illness Here for follow-up after recent retitration study. She reports that she has been using her CPAP at the adjusted pressure at 6 cm recently via full facemask with good tolerance. Of note that the patient had been on CPAP at a pressure of 9 cm and 11 cm and recently adjusted to 6 cm after her titration study. She denies snoring while she was in the machine and reports that her sleep quality and daytime sleepiness has slightly improved with the adjustment. Her weight has been relatively stable. Review of Systems Constitutional: no fever, no chills, no sweats, no weakness Skin: no Jaundice, no rash, no lesions, no petechiae ENT: no ear pain, no sore throat, no congestion, no hoarseness Respiratory: Denies shortness of breath, cough or wheezing Cardiovascular: no chest pain, no palpitations, no edema Gastrointestinal: no nausea, no vomiting, no diarrhea, no GI bleeding Genitourinary: no dysuria, no hematuria, no discharge, no pain Musculoskeletal: no back pain, no trauma Neurologic: no headache, no dizziness, no numbness, no weakness Psychiatric: no irritability, no mood swings/depression. Heme/Lymph: no bleeding tendency, no bruising tendency, no petechiae, no swollen nodes Allergy/Immunologic: no seasonal allergies, no food allergies, no recurrent infections, no impaired immunity Additional ROS info: Except as noted in the above Review of Systems and in the History of Present Illness all other systems have been reviewed and are negative or noncontributory. Physical Exam General: Awake and alert in no acute distress HEENT: NC, AT. Prolonged soft palate Neck: Supple no JVD Assessment/Plan 1. KAYLA (obstructive sleep apnea) (G47.33: Obstructive sleep apnea (adult) (pediatric)) Appears to be doing well on current pressures without significant side effects with good tolerance and compliance with CPAP with a significant improvement in the apnea hypopnea index to 7.6/hour based on her most recent download from November 09, 2022 till December 08, 2022. Her CPAP titration study was reviewed with emergence of central events on higher CPAP pressures and hence explains the elevated AHI on prior downloads on the CPAP pressure of 9 cm and 11 cm in the past. Given the patient's clinical improvement and known emergence of central events on other pressures, we will continue with current CPAP pressures at 6 cm and monitor clinically. The patient was advised to clean the machine regularly and change supplies as needed. Avoid driving while sleepy and avoid sedatives and hypnotics such as alcohol. We will continue with same pressure unless new issues develop and see the patient back after 1 year. The patient will call us back in the meantime if any issues. Follow-up With When Contact Information Stuart NG, Babar Peace, PUL, ASHLY Within [address] [facility] [place], [place] [id number]- Additional Instructions: Problem List/Past Medical History Ongoing GALINDO positive Anserine bursitis Arthralgia of the ankle and/or foot Biceps tendinitis Constipation Eczema Generalized anxiety disorder Hearing reduced History of malignant basal cell neoplasm of skin History of shingles Hyperlipidemia Insomnia Leukopenia Low back pain Lumbar radiculopathy KAYLA (obstructive sleep apnea) Osteoarthritis Osteopenia Tinnitus of both ears Urine abnormality Historical BMI 24.0-24.9, adult Colon polyps Procedure/Surgical History Injection of facet joint using fluoroscopic guidance (11/30/2021), Epidural injection of lumbar spine using fluoroscopic guidance (10/27/2021), Epidural injection of lumbar spine using fluoroscopic guidance (10/28/2020), Epidural injection of lumbar spine using fluoroscopic guidance (08/19/2020), Arthroscopy of knee (06/13/2020), Colonoscopy (03/18/2020), Esophagogastroduodenoscopy (03/18/2020), Cataract extraction and insertion of intraocular lens (03/27/2019), Cataract extraction and insertion of intraocular lens (03/13/2019), Excision of basal cell carcinoma (2015), Blepharoplasty (2012), Colonoscopy (2010), nose surgery (2010), Rotator cuff repair. Medications atorvastatin 10 mg Tab, 10 mg= 1 tab(s), Oral, Daily, 3 refills baclofen 10 mg Tab, 10 mg= 1 tab(s), Oral, Bedtime calcium (as carbonate) 600 mg oral tablet, 1200 mg= 2 tab(s), Oral, Daily Calcium 600+D, See Instructions CeleXA 20 mg Tab, 20 mg= 1 tab(s), Oral, Daily, 3 refills Dulcolax Stool Softener 100 mg oral capsule, 100 mg= 1 cap(s), Oral, BID, PRN Fish Oil 1000 mg oral capsule, 1000 mg= 1 cap(s), Oral, Daily magnesium oxide 400 mg Tab, 400 mg= 1 tab(s), Oral, Daily melatonin 10 mg oral capsule, 10 mg= 1 cap(s), Oral, Once a day (at bedtime), Not taking MiraLax oral powder for reconstitution, 17 gm, Oral, Daily, 1 refills Multivitamin, Therapeutic w/ Minerals, 1 tab(s), Oral, Daily Restasis, 1 drop(s), Eye-Both, BID traZODONE 50 mg Tab, See Instructions, 3 refills turmeric 500 mg oral capsule, 5 (more content not included)... [facility] Comment on above: Result Comment: Elec tronically Signed By: Stuart NG, Babar Peace\.br\Date and Time Signed: 12/10/22 09:32 EDT CHEMISTRYOrdered By: SYSTEM SYSTEM on 08-30-2022 Albumin [Mass/Vol] 4.2 g/dL Normal 3.3 - 5.0 gm/dL [facility] Albumin/Globulin [Mass ratio] 1.2 {ratio} Normal 1.1 - 2.2 [facility] ALP [Catalytic activity/Vol] 66 [iU]/d Normal 21 - 98 Int._Unit/L [facility] ALT No additional P-5'-P [Catalytic activity/Vol] 31 [iU]/d Normal 6 - 46 Int._Unit/L [facility] Anion gap [Moles/Vol] 12 mmol/L Normal 6 - 16 mEq/L [facility] AST [Catalytic activity/Vol] 30 [iU]/d Normal 5 - 43 Int._Unit/L [facility] Bilirubin [Mass/Vol] 0.5 mg/dL Normal 0.0 - 1.1 mg/dL [facility] Calcium [Mass/Vol] 10.3 mg/dL Normal 8.9 - 11. 1 mg/dL [facility] Chloride [Moles/Vol] 100 mmol/L Low 101 - 111 mmol/L [facility] Cholesterol [Mass/Vol] 183 mg/dL Normal 120 - 200 mg/dL [facility] Cholesterol in HDL [Mass/Vol] 70 mg/dL Invalid Interpretation Code [facility] Cholesterol in LDL [Mass/Vol] 93 mg/dL Normal <=129mg/dL [facility] Cholesterol in VLDL [Mass/Vol] 12 mg/dL Normal 7 - 40 mg/dL [facility] CO2 [Moles/Vol] 29 mmol/L Normal 21 - 31 mmol/L [facility] Cobalamin (Vitamin B12) [Mass/Vol] 623 pg/mL Normal 50 - 1500 pg/mL [facility] Creatinine [Mass/Vol] 0.5 mg/dL Normal 0.5 - 1.3 mg/dL [facility] Folate [Mass/Vol] ng/mL Normal >=6.7ng/mL [facility] Free T4 [Mass/Vol] 0.58 ng/dL Normal 0.58 - 1. 64 ng/dL [facility] GFR/1.73 sq M.predicted among blacks MDRD (S/P/Bld) [Vol rate/Area] mL/min/1.73 m2 Normal >=59mL/min/ 1.73 m2 [facility] Chem S GFR/1.73 sq M.predicted among non-blacks MDRD (S/P/Bld) [Vol rate/Area] mL/min/1.73 m2 Normal >=59mL/min/ 1.73 m2 [facility] Chem S Globulin (S) [Mass/Vol] 3.4 g/dL Normal 1.4 - 4.0 gm/dL [facility] Glucose [Mass/Vol] 85 mg/dL Normal 55 - 199 mg/dL [facility] Potassium [Moles/Vol] 4.2 mmol/L Normal 3.5 - 5.3 mmol/L [facility] Protein [Mass/Vol] 7.6 g/dL Normal 6.0 - 7.8 gm/dL [facility] Sodium [Moles/Vol] 137 mmol/L Normal 135 - 145 mmol/L [facility] Triglyceride [Mass/Vol] 58 mg/dL Normal <=149mg/dL [facility] TSH Qn 3.16 m[IU]/L Normal 0.34 - 5.60 mcIU/mL [facility] Urea nitrogen [Mass/Vol] 19 mg/dL Normal 5 - 21 mg/dL [facility] Urea nitrogen/Creatinine [Mass ratio] 38 mg/mg High 10 - 20 [facility] HEMATOLOGYOrdered By: SYSTEM SYSTEM on 08-30-2022 Basophils/100 WBC (Bld) 0.5 % Normal 0.0 - 2.0 % [facility] Basophils/Leukocyte s Auto (Bld) [Pure # fraction] 0.0 E9/L Normal 0.0 - 0.2 E9/L [facility] Eosinophils/100 WBC (Bld) 3.6 % Normal 0.0 - 8.0 % [facility] Eosinophils/Leukocy leonel Auto (Bld) [Pure # fraction] 0.2 E9/L Normal 0.0 - 0.5 E9/L [facility] Lymphocytes/100 WBC (Bld) 32.7 % Normal 14.0 - 50.0 % [facility] Lymphocytes/Leukocy leonel Auto (Bld) [Pure # fraction] 2.0 E9/L Normal 1.0 - 4.0 E9/L [facility] Monocytes/100 WBC (Bld) 11.9 % Normal 4.0 - 14.0 % [facility] Monocytes/Leukocyte s Auto (Bld) [Pure # fraction] 0.7 E9/L Normal 0.2 - 1.0 E9/L [facility] Neutrophils/100 WBC (Bld) 51.3 % Normal 36.0 - 75.0 % [facility] Neutrophils/Leukocy leonel Auto (Bld) [Pure # fraction] 3.2 E9/L Normal 2.0 - 7.5 E9/L [facility] HEMATOLOGYOrdered By: Aixa Rojas on 08-30-2022 Erythrocyte distribution width (RBC) [Ratio] 13.0 % Normal 10.9 - 14.2 % [facility] Hematocrit (Bld) [Volume fraction] 37.5 % Normal 34.0 - 46.0 % [facility] Hemoglobin (Bld) [Mass/Vol] 12.4 g/dL Normal 12.0 - 16.0 gm/dL [facility] MCH (RBC) [Entitic mass] 32.7 pg Normal 27.0 - 34.0 pg [facility] MCHC (RBC) [Mass/Vol] 33.1 g/dL Normal 31.4 - 36.0 gm/dL [facility] MCV (RBC) [Entitic vol] 98.9 fL Normal 80.0 - 100.0 fL [facility] Platelet mean volume (Bld) [Entitic vol] 8.1 fL Normal 6.4 - 10.8 fL [facility] Platelets (Bld) [#/Vol] 284.0 E9/L Normal 150.0 - 500.0 E9/L [facility] RBC (Bld) [#/Vol] 3.8 E12/L Low 4.3 - 5.9 E12/L [facility] WBC corrected for nucl RBC Auto (Bld) [#/Vol] 6.1 E9/L Normal 4.0 - 11.0 E9/L [facility] Vital Signs Date Time Vital Sign Value Performing Clinician Facility 10-28-2023 09:00-0500 Body height 152.4 cm Raudel Pocos DO Work Phone: [facility] 10-28-2023 09:00-0500 Body mass index (BMI) [Ratio] 26.37 kg/m2 Raudel Pocos DO Work Phone: [facility] 10-28-2023 09:00-0500 Body temperature 98.2 [degF] Raudel Pocos DO Work Phone: [facility] 10-28-2023 09:00-0500 Body weight 61.24 kg Raudel Pocos DO Work Phone: [facility] 08-30-2023 11:44-0500 Blood Pressure Location Simona ANDRES [facility] 08-30-2023 11:44-0500 Body temperature 97.88 [degF] Simona ANDRES [facility] 08-30-2023 11:44-0500 Diastolic blood pressure 66 mm[Hg] Simona ANDRES [facility] 08-30-2023 11:44-0500 Heart rate 75 /min Simona ANDRES [facility] 08-30-2023 11:44-0500 SaO2% (BldA) [Mass fraction] 98 % Simona ANDRES [facility] 08-30-2023 11:44-0500 Systolic blood pressure 130 mm[Hg] Simona ANDRES [facility] 08-26-2023 13:58-0500 Blood Pressure Location Fredydoreen Parker [facility] 08-26-2023 13:58-0500 Body temperature 98.24 [degF] Fredy Keith [facility] 08-26-2023 13:58-0500 Diastolic blood pressure 64 mm[Hg] Fredy Parker [facility] 08-26-2023 13:58-0500 Heart rate 74 /min Fredy Keith [facility] 08-26-2023 13:58-0500 Respiratory rate 16 /min Fredy Keith [facility] 08-26-2023 13:58-0500 SaO2% (BldA) [Mass fraction] 99 % Fredy Parker [facility] 08-26-2023 13:58-0500 Systolic blood pressure 126 mm[Hg] Fredy Parker [facility] 07-15-2023 11:28-0400 Blood Pressure Location Kush Toyasic [facility] 07-15-2023 11:28-0400 Body temperature 98.6 [degF] Kush Spasic [facility] 07-15-2023 11:28-0400 Diastolic blood pressure 73 mm[Hg] Kush Spasic [facility] 07-15-2023 11:28-0400 Heart rate 66 /min Kush Spasic [facility] 07-15-2023 11:28-0400 SaO2% (BldA) [Mass fraction] 98 % Kush Spasic [facility] 07-15-2023 11:28-0400 Systolic blood pressure 129 mm[Hg] Kush Spasic [facility] 07-12-2023 09:40-0400 Body height 152.4 cm Nicolas Ramires Other [employer] Other 07-12-2023 09:40-0400 Body mass index (BMI) [Ratio] 26.95 kg/m2 Nicolas Ramires Other [employer] Other 07-12-2023 09:40-0400 Body weight 62.6 kg Nicolas Ramires Other [employer] Other 06-07-2023 10:57-0400 Blood Pressure Location FLORIAN RICH [facility] 06-07-2023 10:57-0400 Body temperature 97.7 [degF] FLORIAN RICH [facility] 06-07-2023 10:57-0400 Diastolic blood pressure 65 mm[Hg] FLORIAN RICH [facility] 06-07-2023 10:57-0400 Heart rate 72 /min FLORIAN RICH [facility] 06-07-2023 10:57-0400 SaO2% (BldA) [Mass fraction] 98 % FLORIAN RICH [facility] 06-07-2023 10:57-0400 Systolic blood pressure 127 mm[Hg] FLORINA RICH [facility] 06-06-2023 13:19-0400 Body height 152.4 cm Conor Dueñas DO Work Phone: [facility] 06-06-2023 13:19-0400 Body weight 58.97 kg Conor Dueñas DO Work Phone: [facility] 05-31-2023 10:00-0400 Body height 152.4 cm Nicolas Ramires Other [employer] Other 05-31-2023 10:00-0400 Body mass index (BMI) [Ratio] 26.56 kg/m2 Nicolas Ramires Other [employer] Other 05-31-2023 10:00-0400 Body weight 61.69 kg Nicolas Ramires Other [employer] Other 05-31-2023 10:00-0400 Diastolic blood pressure 60 mm[Hg] Nicolas Ramires Other [employer] Other 05-31-2023 10:00-0400 Systolic blood pressure 104 mm[Hg] Nicolas Ramires Other [employer] Other 05-16-2023 10:24-0400 Body height 152.4 cm Mark Berumensapphire DO Work Phone: [facility] 05-16-2023 10:24-0400 Body weight 58.97 kg Mark Genin DO Work Phone: [facility] 03-17-2023 09:06-0400 Blood Pressure [facility] Simona ANDRES [facility] 03-17-2023 09:06-0400 Body temperature 98.42 [degF] Simona ANDRES [facility] 03-17-2023 09:06-0400 Diastolic blood pressure 72 mm[Hg] Simona ANDRES [facility] 03-17-2023 09:06-0400 Heart rate 66 /min Simona ANDRES [facility] 03-17-2023 09:06-0400 SaO2% (BldA) [Mass fraction] 98 % Simona ANDRES [facility] 03-17-2023 09:06-0400 Systolic blood pressure 134 mm[Hg] Simona ANDRES [facility] 09-03-2022 09:28-0500 Blood Pressure Location Simona ANDRES [facility] 09-03-2022 09:28-0500 Body temperature 97.88 [degF] Simona ANRDES [facility] 09-03-2022 09:28-0500 Diastolic blood pressure 72 mm[Hg] Simona ANDRES [facility] 09-03-2022 09:28-0500 Heart rate 84 /min Simona ANDRES [facility] 09-03-2022 09:28-0500 SaO2% (BldA) [Mass fraction] 98 % Simona ANDRES [facility] 09-03-2022 09:28-0500 Systolic blood pressure 136 mm[Hg] Simona MICAELA [facility] 08-10-2022 12:19-0500 Body temperature 98.42 [degF] Annel Anderson [facility] 08-10-2022 12:19-0500 Diastolic blood pressure 58 mm[Hg] Annel Orzech [facility] 08-10-2022 12:19-0500 Heart rate 74 /min Annel Orzech [facility] 08-10-2022 12:19-0500 SaO2% (BldA) [Mass fraction] 98 % Annel Orzech [facility] 08-10-2022 12:19-0500 Systolic blood pressure 118 mm[Hg] Annel Orzech [facility] 05-05-2022 13:58-0400 Blood Pressure Location Hilda Lo [facility] 05-05-2022 13:58-0400 Body temperature 98.06 [degF] Hilda Lo [facility] 05-05-2022 13:58-0400 Diastolic blood pressure 78 mm[Hg] Hilda Lo [facility] 05-05-2022 13:58-0400 Heart rate 71 /min Hilda Lo [facility] 05-05-2022 13:58-0400 SaO2% (BldA) [Mass fraction] 99 % Hilda Lo [facility] 05-05-2022 13:58-0400 Systolic blood pressure 132 mm[Hg] Hilda Lo [facility] 03-03-2022 09:01-0400 Blood Pressure Location Simona ANDRES [facility] 03-03-2022 09:01-0400 Body temperature 98.24 [degF] Simona ANDRES [facility] 03-03-2022 09:01-0400 Diastolic blood pressure 70 mm[Hg] Simona ANDRES [facility] 03-03-2022 09:01-0400 Heart rate 76 /min Simona ANDRES [facility] 03-03-2022 09:01-0400 SaO2% (BldA) [Mass fraction] 97 % Simona ANDRES [facility] 03-03-2022 09:01-0400 Systolic blood pressure 134 mm[Hg] Simona ANDRES [facility] 01-14-2022 13:14-0400 Diastolic blood pressure 74 mm[Hg] Simona ANDRES [facility] 01-14-2022 13:14-0400 Mean blood pressure 97 mm[Hg] Simona ANDRES [facility] 01-14-2022 13:14-0400 Systolic blood pressure 142 mm[Hg] Simona ANDRES [facility] 01-14-2022 13:05-0400 Blood Pressure Location Simona ANDRES [facility] 01-14-2022 13:05-0400 Body temperature 98.24 [degF] Simona ANDRES [facility] 01-14-2022 13:05-0400 Diastolic blood pressure 74 mm[Hg] Simona ANDRES [facility] 01-14-2022 13:05-0400 Heart rate 80 /min Simona ANDRES [facility] 01-14-2022 13:05-0400 SaO2% (BldA) [Mass fraction] 99 % Simona ANDRES [facility] 01-14-2022 13:05-0400 Systolic blood pressure 148 mm[Hg] Simona ANDRES [facility] Encounters Encounter Date Encounter Type Care Provider Facility Start: 01-10-2024 End: 01-10-2024 ambulatory THALIA FARLEY Not Available Start: 01-06-2024 End: 01-06-2024 ambulatory ANNELISE PERDOMO Not Available Start: 12-27-2023 End: 12-27-2023 ambulatory THALIA FARLEY Not Available Start: 12-14-2023 End: 12-14-2023 ambulatory SOPHIA WALSH Not Available Start: 12-06-2023 End: 12-06-2023 ambulatory THELMA COBB Not Available Start: 11-29-2023 End: 11-29-2023 ambulatory THELMA COBB Not Available Start: 11-22-2023 End: 11-23-2023 ambulatory Babar Davidson Facility:[facility] Start: 11-22-2023 End: 11-22-2023 ambulatory THELMA COBB Not Available Start: 11-15-2023 End: 11-15-2023 ambulatory THELMA COBB Not Available Start: 11-07-2023 End: 11-07-2023 ambulatory THELMA Gates JORDYN Not Available Start: 11-04-2023 End: 11-04-2023 ambulatory THELMA Gates JORDYN Not Available Start: 10-28-2023 End: 10-28-2023 ambulatory SAUL NATHAN Not Available Start: 10-28-2023 End: 10-28-2023 Patient encounter procedure Saul Nathan DO Work Phone: [facility] Comment on above: Iliotibial band synd wang of right side (Primary Dx); Lumbar spondylosis; Hip pain, right; Right hand pain Start: 10-19-2023 End: 10-20-2023 ambulatory Simona ANDRES Facility:[facility] Start: 10-19-2023 End: 10-19-2023 Patient encounter procedure Azamjoe LunaChandler Davidson [facility] Start: 09-22-2023 End: 09-23-2023 ambulatory Simona ANDRES Facility:[facility] Start: 09-21-2023 End: 09-22-2023 ambulatory Raudel Pfeiffer Pocnguyen Facility:[facility] Start: 09-21-2023 End: 09-21-2023 Patient encounter procedure Saul Nathan [facility] Start: 09-17-2023 End: 09-18-2023 ambulatory Simona ANDRES Facility:[facility] Start: 09-17-2023 End: 09-17-2023 Patient encounter procedure Simona ANDRES [facility] Start: 09-16-2023 End: 09-16-2023 ambulatory THALIA FARLEY Not Available Start: 09-08-2023 End: 09-08-2023 ambulatory THALIA FARLEY Not Available Start: 09-07-2023 End: 09-08-2023 ambulatory Simona ANDRES Facility:[facility] Start: 09-06-2023 End: 09-06-2023 ambulatory CONOR DUEÑAS Facility:[facility] Start: 09-02-2023 Telephone encounter Conor Dueñas DO Work Phone: [facility] Comment on above: Patient Question Start: 09-02-2023 End: 09-02-2023 ambulatory RAUDEL EVANS Not Available Start: 09-01-2023 End: 09-01-2023 ambulatory ALICIA JULES Not Available Start: 09-01-2023 End: 09-01-2023 ambulatory THALIA FARLEY Not Available Start: 08-30-2023 End: 08-31-2023 ambulatory Simona ANDRES Facility:[facility] Start: 08-30-2023 End: 08-30-2023 ambulatory RUIZ PHILLIPS Not Available Start: 08-30-2023 End: 08-30-2023 Patient encounter procedure Simona ANDRES [facility] Start: 08-26-2023 End: 08-27-2023 ambulatory Fredy Parker Facility:[facility] Start: 08-26-2023 End: 08-26-2023 Patient encounter procedure Fredy Parker [facility] Start: 08-25-2023 End: 08-25-2023 Patient encounter procedure Zach Benz MD Work Phone: Orthopaedics Comment on above: Acetabular labrum te ar, right, initial encounter (Primary Dx); Primary osteoarthritis of right hip; Tendinopathy of right gluteus medius; Trochanteric bursitis of right hip; Chronic bilateral low back pain with right-sided sciatica Spinal stenosis, lum bar region, without neurogenic claudication (Primary Dx); Displacement of lumbar intervertebral disc without myelopathy Start: 08-25-2023 End: 08-25-2023 ambulatory SIMONA ANDRES Facility:[facility] Start: 08-23-2023 End: 08-23-2023 Orders Only Zach Benz MD Work Phone: Orthopaedics Comment on above: Pain in right hip (P rimary Dx) Start: 08-18-2023 End: 08-18-2023 ambulatory RUIZ PHILLIPS Not Available Start: 08-15-2023 End: 08-15-2023 ambulatory THALIA FARLEY Not Available Start: 08-10-2023 End: 08-10-2023 ambulatory RUIZ PHILLIPS Not Available Start: 08-08-2023 End: 08-08-2023 ambulatory RUIZ PHILLIPS Not Available Start: 08-05-2023 End: 08-05-2023 ambulatory THALIA SALDANALIVIA Not Available Start: 08-01-2023 End: 08-01-2023 ambulatory RUIZ PHILLIPS Not Available Start: 07-15-2023 End: 07-16-2023 ambulatory Kush V. Spasic Facility:[facility] Start: 07-15-2023 End: 07-15-2023 Patient encounter procedure Kush V. Spasic [facility] Start: 07-12-2023 End: 07-12-2023 ambulatory Nicolas Ramires Other [facility] [employer] Other Start: 07-12-2023 Office outpatient vi sit 15 minutes Nicolas Ramires [facility] Start: 06-28-2023 Telephone encounter Conor Dueñas DO Work Phone: [facility] Comment on above: Follow Up Phone Call Start: 06-23-2023 End: 06-23-2023 ambulatory SIMONA ANDRES Facility:[facility] Start: 06-23-2023 End: 06-24-2023 ambulatory Fredy Parker Facility:[facility] Start: 06-23-2023 End: 06-24-2023 ambulatory Fredy Parker Facility:[facility] Start: 06-09-2023 Orders Only Conor Delarosa DO Work Phone: Procedures Comment on above: Spinal stenosis, lum bar region, without neurogenic claudication (Primary Dx); Displacement of lumbar intervertebral disc without myelopathy Start: 06-07-2023 End: 06-08-2023 ambulatory Fredy Parker Facility:[facility] Start: 06-07-2023 End: 06-08-2023 ambulatory FLORIAN RICH Facility: [facility] Start: 06-07-2023 End: 06-07-2023 Lab Drop off Fredy Parker [facility] Start: 06-07-2023 End: 06-07-2023 Patient encounter procedure FLORIAN RICH [facility] Start: 06-06-2023 End: 06-06-2023 ambulatory MARK WILSON Facility:[facility] Start: 06-06-2023 Telephone encounter Conor Dueñas DO Work Phone: [facility] Comment on above: Procedure Start: 06-06-2023 End: 06-06-2023 Patient encounter procedure Conor Dueñas DO Work Phone: [facility] Comment on above: Spinal stenosis of l umbar region, unspecified whether neurogenic claudication present (Primary Dx); Lumbosacral radiculopathy; Lumbar radiculopathy, chronic; Degenerative arthropathy of spinal facet joint; Lumbar disc herniation Start: 05-31-2023 Office outpatient ne w 30 minutes Nicolas Ramires [facility] Neurosurgery Start: 05-31-2023 End: 05-31-2023 ambulatory Simona Andres [facility] Work Phone: Start: 05-31-2023 End: 05-31-2023 Patient encounter procedure MD Simona Andres Work Phone: [facility] Work Phone: Start: 05-16-2023 End: 05-16-2023 ambulatory MARK WILSON Facility:[facility] Start: 05-16-2023 End: 05-16-2023 Patient encounter procedure Mark Wilson DO Work Phone: Orthopaedics Comment on above: Lumbosacral radiculo elijah (Primary Dx) Start: 05-03-2023 End: 05-04-2023 ambulatory Raudel Evans Facility:[facility] Start: 05-03-2023 End: 05-03-2023 Patient encounter procedure Raudel Evans [facility] Start: 03-17-2023 End: 03-18-2023 ambulatory Simona ANDRES Facility:[facility] Start: 03-17-2023 End: 03-17-2023 Patient encounter procedure Simona ANDRES [facility] Start: 03-14-2023 End: 03-15-2023 ambulatory Simona ANDRES Facility:[facility] Start: 03-14-2023 End: 03-14-2023 Patient encounter procedure Simona ANDRES [facility] Start: 03-03-2023 ambulatory NARENDRANATH LAKSHMIPATHY . Facility: Start: 02-21-2023 End: 02-21-2023 ambulatory Linus Arriola Facility:[facility] Start: 02-21-2023 End: 02-21-2023 ambulatory MD Simona Andres Work Phone: [facility] Work Phone: Start: 02-21-2023 End: 02-21-2023 Patient encounter procedure MD Simona Andres Work Phone: [facility] Work Phone: Start: 02-04-2023 End: 02-04-2023 ambulatory Linus Arriola Facility:[facility] Start: 02-04-2023 End: 02-04-2023 Patient encounter procedure MD Simona Andres Work Phone: [facility] Work Phone: Start: 02-01-2023 End: 02-01-2023 ambulatory NARENDRANATH LAKSHMIPATHY . Facility: Start: 01-20-2023 End: 01-21-2023 ambulatory NARENDRANATH LAKSHMIPATHY . Facility: Start: 01-04-2023 End: 01-04-2023 ambulatory NARENDRANATH LAKSHMIPATHY . Facility: Start: 12-23-2022 End: 12-24-2022 ambulatory NARENDRANATH LAKSHMIPATHY . Facility: Start: 12-10-2022 End: 12-11-2022 ambulatory Babar Davidson Facility:[facility] Start: 12-10-2022 End: 12-10-2022 Patient encounter procedure Babar Davidson [facility] Start: 12-07-2022 End: 12-07-2022 ambulatory NARENDRANATH LAKSHMIPATHY . Facility: Start: 11-16-2022 End: 11-17-[address] GBARIEL LAURENT . Facility: Start: 11-03-2022 End: 11-03-2022 Patient encounter procedure Babar Davidson [facility] Start: 10-29-2022 End: 10-29-2022 Patient encounter procedure Babar Davidson [facility] Start: 10-12-2022 End: 10-13-[address] GABRIEL LAURENT . Facility: Start: 09-03-2022 End: 09-03-2022 Patient encounter procedure Simona ANDRES [facility] Start: 08-30-2022 End: 08-30-2022 Patient encounter procedure Simona ANDRES [facility] Start: 08-18-2022 End: 09-04-2022 Pre-admission assessment Babar Davidson [facility] Start: 08-10-2022 End: 08-10-2022 Patient encounter procedure Annel Anderson [facility] Start: 07-14-2022 End: 07-15-[address] GABRIEL LAURENT . Facility:[facility] Start: 07-01-2022 End: 07-01-2022 Patient encounter procedure Babar Davidson [facility] Start: 06-04-2022 End: 06-04-2022 Patient encounter procedure Babar Davidson [facility] Start: 05-25-2022 End: 05-25-2022 Patient encounter procedure Babar Davidson [facility] Start: 05-05-2022 End: 05-05-2022 Lab Drop off Hilda Lo [facility] Start: 05-05-2022 End: 05-05-2022 Patient encounter procedure Hilda Lo [facility] Start: 04-19-2022 End: 04-19-2022 Patient encounter procedure LINUS ARRIOLA [facility] Start: 04-14-2022 End: 04-15-[address] GABRIEL LAURENT . Facility:[facility] Start: 04-06-2022 End: 04-06-[address] GABRIEL LAURENT . Facility:[facility] Start: 03-30-2022 End: 03-30-[address] GABRIEL LAURENT . Facility:[facility] Start: 03-26-2022 End: 03-26-2022 Patient encounter procedure SWETHA BAILEY [facility] Start: 03-17-2022 End: 03-18-[address] GABRIEL LAURENT . Facility:[facility] Start: 03-03-2022 End: 03-03-2022 Patient encounter procedure Simona ANDRES [facility] Start: 03-02-2022 End: 03-02-[address] GABRIEL LAURENT . Facility:[facility] Start: 02-18-2022 End: 02-19-[address] GABRIEL LAURENT . Facility:[facility] Start: 01-14-2022 End: 01-14-2022 Patient encounter procedure Simona ANDRES [facility] Start: 03-28-2017 End: 03-28-2017 Ambulatory ABEL CHIU Facility:[facility] [place] [facility] Procedures Date Procedure Procedure Detail Performing Clinician Start: 10-28-2023 Arthrocentesis aspir&/inj major jt/bursa w/o us Raudel Pfeiffer Pocos DO Work Phone: Start: 10-28-2023 Radex spine lumbosacral 2/3 views Raudel Jjos DO Work Phone: Start: 05-31-2023 X-ray of lumbar spine, six views including bending views MD Simona Andres Work Phone: Start: 02-21-2023 Mammography of left breast MD Simona aburto Work Phone: Start: 02-04-2023 Screening mammography of bilateral breasts MD Simona Andres Work Phone: Start: 11-30-2021 Injection of facet joint using fluoroscopic guidance Simona ANDRES Comment on above: L4-S1-50% relief L4-S1-50% relief Start: 10-27-2021 Epidural injection of lumbar spine using fluoroscopic guidance Simona ANDRES Comment on above: L4/5 50% x one week L4/5 50% x one week Start: 10-28-2020 Epidural injection of lumbar spine using fluoroscopic guidance Simona ANDRES Comment on above: Right L3 and L4 TFESI: 75% relief Right L3 and L4 TFES I: 75% relief Start: 08-19-2020 Epidural injection of lumbar spine using fluoroscopic guidance Simona ANDRES Comment on above: Bilateral L4- 25% relief Bilateral L4- 25% re lief Start: 06-13-2020 Arthroscopy of knee Simona ANDRES Start: 03-18-2020 Colonoscopy Raudel Evans DO Work Phone: Start: 03-18-2020 Colonoscopy Simona ANDRES Start: 03-18-2020 Esophagogastroduodenoscopy Simona ANDRES Start: 03-27-2019 Cataract extraction and insertion of intraocular lens Simona ANDRES Comment on above: right right Start: 03-13-2019 Cataract extraction and insertion of intraocular lens Simona ANDRES Comment on above: left left Start: 03-28-2017 Anesthesia reconstruction breast ABEL CHIU Start: 03-28-2017 Periprosthetic capsulectomy breast FIDELINA CHIU Start: 09-19-2015 Excision of basal cell carcinoma Simona RICHEYKYLAH Comment on above: right side of nose right side of nose Start: 09-19-2012 Blepharoplasty Ismona ANDRES Comment on above: face & neck face & neck Start: 09-19-2010 Colonoscopy Simona ANDRES Comment on above: January Normal January Normal Start: 09-19-2010 nose surgery 10 Simona ANDRES Comment on above: June Repair of musculoten dinous cuff of shoulder Simona ANDRES Comment on above: bilateral bilateral Plan of Treatment Date Care Activity Detail Author Start: 03-18-2030 Screening for malign ant neoplasm of colon [facility] Start: 03-19-2024 ambulatory Ambulatory Facility:[facility] Start: 03-14-2024 End: 03-14-2024 Patient encounter procedure 03/14/2024 1:20 PM EDT Office Visit [facility] [address] [facility] [address] [place] [address] Sophia Walsh, PA [address] [place] [address] [facility] Start: 11-04-2023 End: 11-04-2023 ambulatory 11/04/2023 8:45 AM EST Evaluation [facility] [address] [place] [address] Thelma Cobb, PT [address] [place] [address] [facility] Start: 08-25-2023 End: 09-21-2024 XR HIP GENERAL 3V PELV/AP/LAT RIGHT XR HIP GENERAL 3V PELV/AP/LAT RIGHT Radiology Routine Pain in right hip Expected: 08/25/2023 (Approximate), Expires: 09/21/2024 [facility] Work Phone: Comment on above: Expected: 08/25/2023 (Approximate), Expires: 09/21/2024 Start: 05-20-2023 Covid-19 Vaccine ( season) Covid-19 Vaccine ( season) [facility] Start: 05-20-2023 Influenza vaccination C [facility] Start: 09-19-2022 ADVANCE DIRECTIVE DISCUSSION ADVANCE DIRECTIVE DISCUSSION [facility] Start: 09-19-2022 DEPRESSION ASSESSMENT DEPRESSION ASS ESSMENT [facility] Start: 08-26-2021 COVID-19 VACCINE (4 - Pfizer series) COVID-19 VACCINE (4 - Pfizer series) [facility] Start: 2013 BONE DENSITY BONE DENSITY [facility] Start: 2013 Bone Density Screening Bone Density Screening [facility] Start: 2013 Pneumococcal Vaccine : 65+ (1 - PCV) Pneumococcal Vaccine: 65+ (1 - PCV) [facility] Start: 2013 PNEUMOCOCCAL: 65+ (1 - PCV) PNEUMOCOCCAL: 65+ (1 - PCV) [facility] Start: 2013 Screening for osteoporosis Bone Density Screening [facility] Start: 2008 RSV Vaccine (1 - 1-d ose 60+ series) RSV Vaccine (1 - 1-dose 60+ series) [facility] Start: 1998 SHINGRIX VACCINE (1 of 2) SHINGRIX VACCINE (1 of 2) [facility] Start: 1993 COLOGUARD (FIT-DNA) COLOGUARD (FIT-D NA) [facility] Start: 1993 Colonoscopy COLONOSCOPY [facility] Start: 1993 COLORECTAL CANCER SCREENING COLORECTAL CANCER SCREENING [facility] Start: [address] COLONOGRAPHY [facility] Start: 1993 DIABETES SCREEN DIABETES SCREEN [facility] Start: 1993 Diabetes Screening Diabetes Screenin g [facility] Start: 1993 FECAL OCCULT BLOOD FECAL OCCULT BLOO D [facility] Start: 1993 Lipid 1996 panel - Serum or Plasma Lipid Screening [facility] Start: 1993 Lipid panel Lipid Screening [facility] Start: 1993 LIPID SCREEN LIPID SCREEN [facility] Start: 1993 Screening for malign ant neoplasm of colon [facility] Start: 1993 SIGMOIDOSCOPY SIGMOIDOSCOPY [facility] Start: 1988 Mammography [facility] Start: 1967 Urine microalbumin profile [facility] Start: 1966 HEPATITIS C SCREENING HEPATITIS C [facility] Start: 1966 Hepatitis C screening Hepatitis C [facility] Start: 1948 Screening for malign ant neoplasm of colon [facility] End: 09-23-2024 IMAGING GUIDED HIP/ILIOPSOAS INJECTION RIGHT IMAGING GUIDED HIP/ILIOPSOAS INJECTION RIGHT Radiology Routine Acetabular labrum tear, right, initial encounter Primary osteoarthritis of right hip 1 Occurrences starting 08/25/2023 until 09/23/2024 [facility] Work Phone: Comment on above: 1 Occurrences starti ng 08/25/2023 until 09/23/2024 SPINE INTERVENTION PROCEDURE SPINE INTERVENTION PROCEDURE Procedures Routine Spinal stenosis of lumbar region, unspecified whether neurogenic claudication present Lumbar disc herniation Ordered: 06/06/2023 [facility] Work Phone: Comment on above: Ordered: 06/06/2023 XR Hip - right 3 Views XR hip ri ght 2 or 3 views Imaging Routine Lumbar spondylosis Hip pain, right 10/28/2023 8:48 AM EST [facility] Immunizations Immunization Date Immunization Notes Care Provider Fa cility 06-15-2023 influenza virus vaccine, unspecified formulation Kushsebastien Funezyenifer [facility] 06-27-2022 influenza virus vaccine, unspecified formulation Simona ANDRES [facility] 06-27-2022 Influenza, High-dose Seasonal, Quadrivalent, Preservative Free Raudel Pocos DO Work Phone: [facility] 07-01-2021 SARS-CoV-2 (COVID-19 ) mRNA BNT-162b2 vax Simona ANDRES [facility] 06-20-2021 influenza virus vaccine, unspecified formulation Simona ANDRES [facility] 06-20-2021 Influenza, High-dose Seasonal, Quadrivalent, Preservative Free Raudel Parviznguyen DO Work Phone: [facility] 05-21-2021 influenza virus vaccine, unspecified formulation Simona ANDRES [facility] Comment on above: Result Comment: [facility] Result Comment: [facility] 12-11-2020 COVID-19, mRNA, LNP- S, PF, 30 mcg/0.3 mL dose; Translations: [[email or web address] COVID-19 Vaccine] Simona ANDRES [facility] Comment on above: Reason for Medicatio n: Prophylaxis Reason for Medicatio n: Prophylaxis 11-13-2020 COVID-19, mRNA, LNP- S, PF, 30 mcg/0.3 mL dose; Translations: [[employer] COVID-19 Vaccine] Simona ANDRES [facility] Comment on above: Reason for Medicatio n: Prophylaxis Reason for Medicatio n: Prophylaxis 06-17-2020 influenza, high dose seasonal, preservative-free Raudel Pocos DO Work Phone: [facility] 06-07-2020 influenza virus vaccine, unspecified formulation Simona ANDRES [facility] Comment on above: Result Comment: [facility] Result Comment: [facility] 06-07-2020 Influenza, High-dose Seasonal, Quadrivalent, Preservative Free Raudel Pocos DO Work Phone: [facility] 06-10-2019 influenza virus vaccine, unspecified formulation Kush Spaluis fernando [facility] 06-10-2019 influenza, high dose seasonal, preservative-free Raudel Pocos DO Work Phone: [facility] 05-06-2019 zoster vaccine recombinant Simona ANDRES [facility] 02-19-2019 zoster vaccine recombinant Simona ANDRES [facility] 06-01-2018 influenza virus vaccine, unspecified formulation Simona ANDRES [facility] 06-01-2018 influenza, high dose seasonal, preservative-free Raudel Pocos DO Work Phone: [facility] 08-09-2017 pneumococcal polysaccharide vaccine, 23 valent Simona ANDRES [facility] 06-19-2017 influenza virus vaccine, unspecified formulation Kush Spasic [facility] 06-19-2017 influenza, injectabl e, quadrivalent, preservative free Raudel Pocos DO Work Phone: [facility] 05-29-2017 influenza virus vaccine, unspecified formulation Kush Spasic [facility] 05-29-2017 influenza, high dose seasonal, preservative-free Raudel Pocos DO Work Phone: [facility] 06-18-2016 influenza virus vaccine, unspecified formulation Kush Spasic [facility] 06-18-2016 influenza, injectabl e, quadrivalent, preservative free Raudel Pocos DO Work Phone: [facility] 06-05-2016 influenza virus vaccine, unspecified formulation Kush Spasic [facility] 06-05-2016 influenza, high dose seasonal, preservative-free Raudel Pocos DO Work Phone: [facility] 01-19-2016 pneumococcal polysaccharide vaccine, 23 valent Kush Spasic [facility] 08-05-2015 pneumococcal conjuga te vaccine, 13 valent Simona ANDRES [facility] 06-22-2015 influenza virus vaccine, unspecified formulation Kush Spasic [facility] 06-22-2015 influenza, high dose seasonal, preservative-free Raudel Pocos DO Work Phone: [facility] 08-02-2014 pneumococcal polysaccharide vaccine, 23 valent Simona ANDRES [facility] 09-19-2009 zoster vaccine, live Simona SANTIAGO [facility] 06-22-2007 tetanus toxoid, adsorbed Raudel Pocos DO Work Phone: [facility] Payers Date Payer Category Payer Unknown [id number] 2022 Self-pay [id number] 2021 Unknown MMO MMO MEDICARE SUPPLEMENT [id number] 2021-Present [phone] [address] [place] [address] Indemnity [id number] 2013 Medicare [id number]. [id number] 1959 Medicare [id number] 1959 Unknown [id number] 1948 Unknown [id number] 2.16.840.1.487244.3.579.2. 593 1948 Unknown [id number] 2.16.840.1.461596.3.579.2. 593 1948 Unknown [id number] 2.16.840.1.952630.3.579.2. 593 1948 Unknown [id number] 2.16.840.1.633962.3.579.2. 593 1948 Unknown [id number] 2.16.840.1.169383.3.579.2. 593 1948 Unknown [id number] 2.16.840.1.684244.3.579.2. 593 1948 Unknown [id number] 2.16.840.1.261605.3.579.2. 593 1948 Unknown [id number] 2.16.840.1.629167.3.579.2. 593 1948 Unknown [id number] 2.16.840.1.652114.3.579.2. 593 1948 Unknown [id number] 2.16.840.1.034458.3.579.2. 593 1948 Unknown [id number] 2.16.840.1.035196.3.579.2. 593 1948 Unknown [id number] 2.16.840.1.362198.3.579.2. 593 1948 Unknown [id number] 2.16.840.1.364569.3.579.2. 593 1948 Unknown [id number] 2.16.840.1.129114.3.579.2. 593 1948 Unknown [id number] 2.16.840.1.081981.3.579.2. 593 1948 Unknown [id number] 2.16.840.1.262582.3.579.2. 727 1948 Unknown [id number] 2.16.840.1.803898.3.579.2. 727 1948 Unknown [id number] 2.16.840.1.092554.3.579.2. 727 1948 Unknown [id number] 2.16.840.1.815778.3.579.2. 727 1948 Unknown [id number] 2.16.840.1.433024.3.579.2. 727 1948 Unknown [id number] 2.16.840.1.735460.3.579.2. 727 1948 Unknown [id number] 2.16.840.1.136086.3.579.2. 727 1948 Unknown [id number] 2.16.840.1.899498.3.579.2. 7 1948 Unknown [id number] 2.16.840.1.715036.3.579.2. 1948 Unknown [id number] 2.16.840.1.061291.3.579.2. 1948 Unknown [id number] 2.16.840.1.285102.3.579.2. 1948 Unknown [id number] 2.16.840.1.137545.3.579.2. 1948 Unknown [id number] 2.16.840.1.768823.3.579.2. 1948 Unknown [id number] 2.16.840.1.062357.3.579.2. 1948 Unknown [id number] 2.16.840.1.924310.3.579.2. 1948 Unknown [id number] 2.16.840.1.273120.3.579.2. 1948 Unknown [id number] 2.16.840.1.724379.3.579.2. 1948 Unknown [id number] 2.16.840.1.911301.3.579.2. 1948 Unknown [id number] 2.16.840.1.449722.3.579.2 1948 Unknown [id number] 2.16.840.1.126397.3.579.2. 1948 Unknown [id number] 2.16.840.1.875756.3.579.2. 1948 Unknown [id number] 2.16.840.1.015861.3.579.2. 1259 1948 Unknown [id number] 2.16.840.1.848639.3.579.2. 1259 1948 Unknown [id number] 2.16.840.1.230827.3.579.2. 125 1948 Unknown [id number] 2.16.840.1.555200.3.579.2. 1258 1948 Unknown [id number] 2.16.840.1.066448.3.579.2. 1258 1948 Unknown [id number] 2.16.840.1.834815.3.579.2. 125 1948 Unknown [id number] 2.16.840.1.122669.3.579.2. 1258 1948 Unknown [id number] 2.16.840.1.917007.3.579.2. 1258 1948 Unknown [id number] 2.16.840.1.823941.3.579.2. 1258 1948 Unknown [id number] 2.16.840.1.826491.3.579.2. 1258 1948 Unknown [id number] 2.16.840.1.018312.3.579.2. 1258 1948 Unknown [id number] 2.16.840.1.496052.3.579.2. 1258 1948 Unknown [id number] 2.16.840.1.985742.3.579.2. 1258 1948 Unknown [id number] 2.16.840.1.349730.3.579.2. 1258 1948 Unknown [id number] 2.16.840.1.789370.3.579.2. 1258 1948 Unknown [id number] 2.16.840.1.425674.3.579.2. 1258 1948 Unknown [id number] 2.16.840.1.182376.3.579.2. 1258 1948 Unknown [id number] 2.16.840.1.496322.3.579.2. 1259 1948 Unknown [id number] 2.16.840.1.428323.3.579.2. 1258 1948 Unknown [id number] 2.16.840.1.838187.3.579.2. 9 1948 Unknown [id number] 2.16.840.1.241250.3.579.2. 1258 1948 Unknown [id number] 2.16.840.1.665097.3.579.2. 1259 1948 Unknown [id number] 2.16.840.1.804125.3.579.2. 1258 1948 Unknown [id number] 2.16.840.1.850865.3.579.2. 1258 1948 Unknown [id number] 2.16.840.1.130239.3.579.2. 1258 1948 Unknown [id number] 2.16.840.1.145528.3.579.2. 1258 1948 Unknown [id number] 2.16.840.1.181750.3.579.2. 1259 Private Health Insurance [employer] [id number] Self-pay [id number] Unknown [id number] 2.16.840.1.257783.3.579.2. 531 Unknown [id number] 2.16.840.1.151600.3.579.2. 531 Unknown [id number] 2.16.840.1.485611.3.579.2. 531 Social History Date Type Detail Facility Start: 01-14-2022 End: 03-02-2023 Tobacco smoking status Never smoked tobacco (finding) [facility] Start: 12-04-2019 End: 03-29-2023 Sex Assigned At Female [facility] Start: 1950 Sex Assigned At Female [facility] Start: 09-29-2017 End: 03-02-2023 Tobacco use and exposure Smokeless tobacco non-user [facility] Start: 12-04-2019 End: 06-06-2023 Alcohol intake Not Asked [facility] Start: 12-04-2019 End: 03-29-2023 History of Social function [facility] Start: 07-19-2019 Sexual orientation Heterosexual (finding) [facility] Start: 10-28-2023 Alcohol intake Lifetime non-drinker (finding) [facility] How often to you hav e a drink containing alcohol? Never [facility] Start: 03-07-2023 Alcohol Comment caffeine: 1-2 cups per day [facility] Start: 1950 Sex Assigned At Not on file [facility] Functional Status Date Assessment Result Facility 08-30-2023 Functional Status N/A [facility] 08-26-2023 Functional Status N/A [facility] 07-15-2023 Functional Status N/A [facility] 06-07-2023 Functional Status N/A [facility] 03-17-2023 Functional Status N/A [facility] 09-03-2022 Functional Status N/A [facility] 08-10-2022 Functional Status N/A [facility] 05-05-2022 Functional Status N/A [facility] 03-03-2022 Functional Status N/A [facility] Clinical Notes 01-14-2022 to 10-28-2023 Shruti Leiva MA - 10/28/2023 9:00 AM Chelita Contreras - 10/28/2023 9:00 AM Randolph Redd - Jewell Espinoza LPN - 09/02/2023 1:37 PM Zach Lord MD - 08/25/2023 11:47 AM EST Note Date & Type Note Facility 10-28-2023 History of Presen t illness Narrative Associated Order(s): L Inj/Asp: R knee Post-Procedure Diagnose(s): Iliotibial band syndrome of right side L Inj/Asp: R knee on 10/28/2023 9:52 AM Indications: pain and diagnostic evaluation Details: 22 G needle Medications: 1 mL betamethasone acetate-betamethasone sodium phosphate 6 (3-3) MG/ML; 3 mL lidocaine PF 1 % Consent was given by the patient. Images from the original note were not included. Maria Victoria Neely is a 73 y.o. female presents with chief complaint of right hip pain, labral tear, right knee pain. HPI: Maria Victoria returns here today for all the above. She continues to have some symptoms, but has really settled into the right lateral knee pain. She has been doing some reading on iliotibial band and has several questions regarding that. She also questions whether a labral tear will heal itself. She does have questions regarding some swelling or fullness in her legs and what that can be from. Ultimately she does want to get back to exercising. She used to be very into this and states she has not been able to do that sort of activity for quite some time. SUBJECTIVE: MEDICATIONS: Current Outpatient Medications Medication Instructions ALPRAZolam (XANAX) 0.5 mg, Oral, 3 times daily PRN atorvastatin (LIPITOR) 10 mg, Oral, Daily baclofen (Lioresal) 10 MG tablet TAKE 1/2 TO 1 TABLET BY MOUTH THREE TIMES DAILY NEEDED Calcium Carbonate-Vit D-Min (Calcium 600+D Plus Minerals) 600-400 MG-UNIT chewable tablet Every 24 hours citalopram (CELEXA) 20 mg, Oral, Daily diclofenac sodium 2 g, Topical Docusate Sodium (DSS) 100 MG capsule Every 24 hours Magnesium 300 MG capsule Every 24 hours MiraLax 17 GM/SCOOP powder Every 24 hours Multiple Vitamins-Minerals (Multi Complete) capsule Orally omega-3 (Fish Oil) 1000 MG capsule 1 capsule, Every 24 hours oxybutynin XL (DITROPAN-XL) 10 mg, Oral, Daily traZODone (DESYREL) 50 mg ALLERGIES: Allergies Allergen Reactions Clindamycin Rash and Unknown Other Reaction(s): swelling of throat SURGICAL HISTORY: Past Surgical History: Procedure Laterality Date BACK SURGERY multiple back injections BLEPHAROPLASTY 2013 CATARACT EXTRACTION W/ INTRAOCULAR LENS IMPLANT 2019 COLONOSCOPY 2005 COLPOSCOPY 2020 KNEE ARTHROPLASTY 2019 NOSE SURGERY 2011 ROTATOR CUFF REPAIR 2002,2004,2006 TOTAL KNEE ARTHROPLASTY Left 2020 TRIGGER FINGER RELEASE TUBAL LIGATION 1977 FAMILY HISTORY: Family History Problem Relation Name Age of Onset Stroke Mother Latoya Calderon Cancer Father Tesfaye Calderon SOCIAL HISTORY: Social History Tobacco Use Smoking status: Never Smokeless tobacco: Never Vaping Use Vaping Use: Never used Substance Use Topics Alcohol use: Never Comment: caffeine: 1-2 cups per day Drug use: Never Depression: Not at risk (03/29/2023) PHQ-2 PHQ-2 Score: 0 REVIEW OF SYMPTOMS: The review of systems, history and current medications list are all reviewed today. OBJECTIVE: Visit Vitals Temp 98.2 F Ht 5' Wt 135 lb BMI 26.37 kg/m OB Status Postmenopausal Smoking Status Never BSA 1.61 m Physical Exam Her orthopedic exam shows no gross malalignment or deformity. She does have tenderness to palpation right over the right lateral distal iliotibial band, nothing really over the lateral compartment per se. Nothing over the medial compartment. Her varus and valgus stress testing is stable. Sabiha is negative. Magdiel testing is negative. Internal and external rotation of the hip is without a lot of difficulty here today and symmetric. No trochanteric tenderness. Bench test is negative. She does have some fullness of the leg area. This is likely simply soft tissue, maybe a little bit related to some venous insufficiency. X-rays done here today, AP pelvis, right hip total of three views with permanent images are saved to the record and does show some early arthritic change. This is medial pole and inferior. There is some osteophytic spurring. No evidence of fracture, still articular cartilage remaining. She does have it appears a little more arthritis of her left hip versus the right hip that has been worked up. X-rays of the lumbar spine , a total of 2 views with permanent images saved to the record, show the spondylosis and degenerative disc disease. No fracture. ASSESSMENT AND PLAN: Assessment/Plan Right hip labral repair with distal iliotibial band syndrome, lumbar degenerative disc and degenerative joint disease. The findings are discussed. We did discuss the findings at length again here today. Her symptomatology has settled into her distal iliotibial band. We did discuss the IT band as being mechanical and the way she does walk. She questions how to correct this. We did discuss therapy. She will go back to therapy with a focus on this. She did put her on therapy on hold previously around the holidays. We did discuss corticosteroid injection and she does opt for that here today. She is injected with 1 cc of Betamethasone and 1 cc of 1% Lidocaine plain (6 mg of Betamethasone with 3 ml of 1% Lidocaine plain). This is given per the office protocol under sterile technique to the distal iliotibial band. She tolerated the injection well. We did discuss the labrum at length. Again, at [id number], she has seen a hip arthroscopist. The discussion would shift it appears to a discussion of total hip arthroplasty as she does have some early arthritic change. She is quite confused about this. We did explain it at length to her. We did discuss her soft tissue fullness of her legs. This is likely simply that and likely due to lack of exercise. We did discuss the possibility of some venous insufficiency and did recommend [id number] support socks, especially given the colder weather months. We will see her back here in one month for recheck and review only as necessary. All of her questions are otherwise answered this day. The patient was seen and examined. From the time of check in, nurse triage, vital signs, x-ray, x-ray interpretation, review of systems, comprehensive history and physical exam as well as setting up treatment plan and further management took 35 minutes. documented in this encounter [facility] 09-28-2023 Hospital Discharg e instructions Follow Up Care 09/28/2023 14:36:20 With:Stuart NG, KEIRA Vazquez, ASHLY Address: [address] [facility] [place] [address]- When:3 months [facility] 09-02-2023 Miscellaneous Notes Pt calling stating that the Rt side is hurting again Pt aware that she had requested the Lt side be done this time Advised pt the day of the procedure Dr Dueñas will give the procedure that day based on the presentation and symptoms Pt verbalized understanding Maria Victoria is calling Conor Dueñas DO today to request return call to discuss upcoming procedure. Patient has been identified by name and birthdate. Duration of symptoms: N/A Person calling: self Call patient at: on cell [phone] (home) [phone] (cell) Was an appointment scheduled: No Closing statement: Results or non-symptom based questions: Thank you for calling [facility], your call will be returned within the next business day. Lashon Craig documented in this encounter [facility] 08-30-2023 Hospital Discharg e instructions Patient Education 08/30/2023 12:15:07 BMI for Adults BMI for Adults What is BMI? Body mass index (BMI) is a number that is calculated from a person's weight and height. BMI can help estimate how much of a person's weight is composed of fat. BMI does not measure body fat directly. Rather, it is an alternative to procedures that directly measure body fat, which can be difficult and expensive. BMI can help identify people who may be at higher risk for certain medical problems. What are BMI measurements used for? BMI is used as a screening tool to identify possible weight problems. It helps determine whether a person is obese, overweight, a healthy weight, or underweight. BMI is useful for: Identifying a weight problem that may be related to a medical condition or may increase the risk for medical problems. Promoting changes, such as changes in diet and exercise, to help reach a healthy weight. BMI screening can be repeated to see if these changes are working. How is BMI calculated? BMI involves measuring your weight in relation to your height. Both height and weight are measured, and the BMI is calculated from those numbers. This can be done either in [place] or metric measurements. Note that charts and online BMI calculators are available to help you find your BMI quickly and easily without having to do these calculations yourself. To calculate your BMI in [place] measurements: 1.Measure your weight in pounds (lb). 2.Multiply the number of pounds by 703. For example, for a person who weighs 180 lb, multiply that number by 703, which equals 126,540. 3.Measure your height in inches. Then multiply that number by itself to get a measurement called inches squared. For example, for a person who is 70 inches tall, the inches squared measurement is 70 inches x 70 inches, which equals 4,900 inches squared. 4.Divide the total from step 2 (number of lb x 703) by the total from step 3 (inches squared): 126,540 4,900 = 25.8. This is your BMI. To calculate your BMI in metric measurements: 1.Measure your weight in kilograms (kg). 2.Measure your height in meters (m). Then multiply that number by itself to get a measurement called meters squared. For example, for a person who is 1.75 m tall, the meters squared measurement is 1.75 m x 1.75 m, which is equal to 3.1 meters squared. 3.Divide the number of kilograms (your weight) by the meters squared number. In this example: 70 3.1 = 22.6. This is your BMI. What do the results mean? BMI charts are used to identify whether you are underweight, normal weight, overweight, or obese. The following guidelines will be used: Underweight: BMI less than 18.5. Normal weight: BMI between 18.5 and 24.9. Overweight: BMI between 25 and 29.9. Obese: BMI of 30 or above. Keep these notes in mind: Weight includes both fat and muscle, so someone with a muscular build, such as an athlete, may have a BMI that is higher than 24.9. In cases like these, BMI is not an accurate measure of body fat. To determine if excess body fat is the cause of a BMI of 25 or higher, further assessments may need to be done by a health care provider. BMI is usually interpreted in the same way for men and women. Where to find more information For more information about BMI, including tools to quickly calculate your BMI, go to these websites: Centers for Disease Control and Prevention: www.cdc.gov [place] [employer]: www.heart.org National Heart, Lung, and Blood [place]: www.nhlbi.nih.gov Summary Body mass index (BMI) is a number that is calculated from a person's weight and height. BMI may help estimate how much of a person's weight is composed of fat. BMI can help identify those who may be at higher risk for certain medical problems. BMI can be measured using Afghan measurements or metric measurements. BMI charts are used to identify whether you are underweight, normal weight, overweight, or obese. This information is not intended to replace advice given to you by your health care provider. Make sure you discuss any questions you have with your health care provider. Document Revised: 05/28/2020 Document Reviewed: 04/04/2020 [employer] Patient Education 2022 [employer]. Follow Up Care 08/25/2023 10:09:38 With:MICAELA NG, Simona Webb [facility] Address: [address] [place] [address]- When: Unknown Comments:at regular appt but sooner if needed. [facility] 08-25-2023 Note HNO ID: [id number] Author: Zach Benz MD Service: ? Author Type: Physician Type: Progress Notes Filed: 08/25/2023 12:12 PM Note Text: Patient: Maria Victoria Neely : 1950 Providers Referring physician: Simona Andres MD Primary care physician: Simona Andres MD Chief complaint: Patient presents with: Right Hip - New Patient seen in subspecialty orthopedic hip consultation at the request of Simona Andres MD. The final recommendations will be communicated back to the requesting clinician by way of the shared medical record or letter via US mail. HPI: Maria Victoria Neely is a 73 year old female seen with a 7 months history of right hip pain. The onset of pain has been acute on chronic, and the pain is worsening. The pain primarily localizes: right lateral hip pain and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 pain. Liftin - I can lift heavy weights without increased pain. Walkin - Pain prevents me from walking more than 1 mile. Sittin - I can only sit in my favorite chair as long as I like. Standin - Pain prevents me from standing more than 1 hour. Sleepin - Pain does not prevent me from sleeping well. Social Life: 1 - My social life is normal, but it does increase my level of pain. Travelin - I can travel anywhere, but it increases my pain. Employment/Homemakin - My normal homemaking/job activities increase my pain, but I can still perform all that is required of me. Score: Oswestry Interpretation: 0-20% = Mild disability Low Back Pain Questionnaires 10/30/2019 GUY Score 8.88 (Minimal disability) PROMIS Score Percentiles Physical Health 10/30/2019 11/17/2019 06/02/2023 Physical Function Percentile - 38 24* Fatigue Percentile 58 - - Pain Interference Percentile 27* - - PROMIS SOCIAL ROLE SCORE 09/17/2019 10/30/2019 Social Role Satisfaction Percentile 14 34 PROMIS Global Health Scale 04/07/2017 10/30/2019 Physical Health Percentile 53 66 Mental Health Percentile 43 43 Percentiles provide an indication of how the patient's score ranks in relation to the general population. Higher percentile rankings indicate better function/quality of life. 50th percentile is the average of the general population and indicates half of respondents had a worse score. Depression Screening: PHQ-9 06/11/2019 Score 2 PHQ-9 Self-Harm (Item 9) response options: 0 Not at all 1 Several days 2 More than half the days 3 Nearly every day PHQ-9 Levels: 0-4 No - mild depression 5-9 Mild depression 10-14 Moderate depression 15-19 Moderately severe depression 20-27 Severe depression ACTIVE PROBLEM LIST Shoulder Pain Reardon Neuroma Rotator Cuff Strain, Right, Initial Encounter Cuboid Syndrome of Right Foot Gluteal Pain Primary Osteoarthritis of Right Knee Chronic Pain of Right Knee Trigger Ring Finger of Right Hand Chronic Right-Sided Low Back Pain With Right-Sided Sciatica Chronic Right-Sided Low Back Pain With Left-Sided Sciatica Lumbosacral Radiculopathy Chronic Bilateral Low Back Pain With Bilateral Sciatica Trigger Finger of Right Hand Neuroforaminal Stenosis of Lumbosacral Spine PAST MEDICAL HISTORY Diagnosis Date Lumbosacral radiculopathy 08/20/2019 Osteoporosis, unspecified PAST SURGICAL HISTORY Procedure Laterality Date AUGMENTATION M (more content not included)...[facility] 06-06-2023 History of Present illness Narrative* Conor Dueñas DO - 06/06/2023 7:10 AM EDT Images from the original note were not included. Spine Care Path Low Back Pain - Chronic (> 12 weeks) Initial Exam SUBJECTIVE HISTORY OF PRESENT ILLNESS: Maria Victoria Neely is a 72 year old female who presents with a chief complaint of low back pain andis seen in consultation requested by Dr. Mark Wilson for an opinion regarding LBP R>L with Rt knee pain that has been constant for years. Pt stated the Rt lateral leg hurts with tingling in the bottom of the foot. My final recommendations will be communicated back to the requesting physician by way of shared medical record or letter via US mail. Other Issues Addressed at the Visit Today: None. Precipitating Event: None PAIN EVALUATION 06/02/2023 1428 06/06/2023 1318 Pain Level: 4 5 Pain Location: Back-Lower -- LBP R>L, Rt knee Description: Aching;Stabbing;Tingling -- Burning, Throbbing Duration Amount of Time: 10 -- Duration Units: Hours Years Frequency: Continuous Continuous Intervention/Comfort measure: -- -- Medications, Chiropractor, Pain mgmt with injections, PT Comments: sciatica pain -- Pain Radiation: as noted above. Aggravating Factors: Worse at the end of the day, Standing long time Alleviating Factors: Nothing, Laying on a hard surface Pain Ratio: All the regions of pain are equal. Prior Therapy: Pain mgmt with procedures-RFA did not help, PT PREVIOUS TREATMENTS IN THE LAST SIX MONTHS Active conservative therapy in the last six months (see below) 1. Physical therapy: No 2. Home exercise program after PT: No 3. 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 What are your limitations: None Passive conservative therapy in the last six months (see below) 1. NSAIDS: Naproxen 4 tabs taken today 2. Prescription pain medication: None 3. Acupuncture: No 4. Tens unit: No Litigation: No Workers' Compensation: No YELLOW & BLUE FLAGS No-Neg Attitude; Back Pain is Disabling No-Avoiding Activity (for Fear of Pain) No-Depression or Anxiety Disorders No-Social Problems No-Substance Use Disorder No-Job Dissatisfaction No-Financial Disincentives History or Skin Cancer. Patient Entered Questionnaires Oswestry Score: Pain: 4 - Pain medication provides me with little relief from pain. Personal Care: 1 - I can take care of myself normally, but it increases my pain. Liftin - I can lift heavy weights without increased pain. Walkin - Pain prevents me from walking more than 1 mile. Sittin - I can only sit in my favorite chair as long as I like. Standin - Pain prevents me from standing more than 1 hour. Sleepin - Pain does not prevent me from sleeping well. Social Life: 1 - My social life is normal, but it does increase my level of pain. Travelin - I can travel anywhere, but it increases my pain. Employment/Homemakin - My normal homemaking/job activities increase my pain, but I can still perform all that is required of me. Score: Oswestry Interpretation: 0-20% = Mild disability Low Back Pain Questionnaires 10/30/2019 GUY Score 8.88 (Minimal disability) PROMIS Score Percentiles Physical Health 10/30/2019 11/17/2019 06/02/2023 Physical Function Percentile - 38 24* Fatigue Percentile 58 - - Pain Interference Percentile 27* - - PROMIS SOCIAL ROLE SCORE 09/17/2019 10/30/2019 Social Role Satisfaction Percentile 14 34 PROMIS Global Health Scale 04/07/2017 10/30/2019 Physical Health Percentile 53 66 Mental Health Percentile 43 43 Percentiles provide an indication of how the patient's score ranks in relation to the general population. Higher percentile rankings indicate better function/quality of life. 50th percentile is the average of the general population and indicates half of respondents had a worse score. Depression Screening: PHQ-9 06/11/2019 Score 2 PHQ-9 Self-Harm (Item 9) response options: 0 Not at all 1 Several days 2 More than half the days 3 Nearly every day PHQ-9 Levels: 0-4 No - mild depression 5-9 Mild depression 10-14 Moderate depression 15-19 Moderately severe depression 20-27 Severe depression ACTIVE PROBLEM LIST Shoulder Pain Reardon Neuroma Rotator Cuff Strain, Right, Initial Encounter Cuboid Syndrome of Right Foot Gluteal Pain Primary Osteoarthritis of Right Knee Chronic Pain of Right Knee Trigger Ring Finger of Right Hand Chronic Right-Sided Low Back Pain With Right-Sided Sciatica Chronic Right-Sided Low Back Pain With Left-Sided Sciatica Lumbosacral Radiculopathy Chronic Bilateral Low Back Pain With Bilateral Sciatica Trigger Finger of Right Hand Neuroforaminal Stenosis of Lumbosacral Spine PAST MEDICAL HISTORY Diagnosis Date Lumbosacral radiculopathy 08/20/2019 Osteoporosis, unspecified PAST SURGICAL HISTORY Procedure Laterality Date AUGMENTATION MAMMAPLASTY 10 yrs ago PLASTIC SURGERY, NECK 13 yrs ago facelift PLASTIC SURGERY, NECK 11 yrs ago abdominoplasty REPAIR ROTATOR CUFF,ACUTE 2002 Rotator cuff repair Social History Tobacco Use Smoking status: Never Smokeless tobacco: Never No family history on file. ALLERGIES Allergen Reactions Clindamycin Unknown CURRENT MEDICATIONS: methylPREDNISolone (MEDROL, MIRIAM,) 4 mg Dose-Pack As Instructed per package atorvastatin (LIPITOR) 10 mg tablet Take 10 mg by mouth once daily. citalopram (CELEXA) 20 mg tablet Take 20 mg by mouth once daily. cyanocobalamin, vitamin B-12, (VITAMIN B-12 SUBLINGUAL) ketorolac (ACULAR) 0.5 % ophthalmic solution Use 1 Drop in both eyes twice daily. Lactobacillus acidophilus (PROBIOTIC) 10 billion cell cap Take 1 capsule by mouth once daily. Magnesium 250 mg tab Take 250 mg by mouth once daily. turmeric 400 mg cap Take 400 mg by mouth once daily. ALPRAZolam (XANAX) 1 mg ORAL tablet Take one-half (1/2) tablet daily. Milton-3 Fatty Acids-Vitamin E (FISH OIL) 1,000 mg ORAL Cap Take one(1) tablet daily. multivitamin (DAILY MULTI-VITAMIN) ORAL tablet Take one(1) tablet daily. calcium carbonate 600 mg-cholecalciferol 200 units (CALCIUM 600 + D,3,) 600 mg(1,500mg) -200 unit ORAL Tab Take one(1) tablet daily. REVIEW OF SYSTEMS: PAIN ASSESSMENT: See HPI. GENERAL: Denies fever, chills malaise and weight loss. HEENT: No recent change in vision or hearing. CARDIOVASCULAR: Denies chest pain, history of A-fib, valvular disease, or pacemaker/ICD. RESPIRATORY: Denies SOB, sputum production, and hemoptysis. GI: Denies GI ulcers, inflammatory disease, or liver disease. : Denies change in frequency or urgency, kidney disease, and burning with urination. MUSCULOSKELETAL: None other than noted above SKIN: Denies rash or itching. OBJECTIVE: PHYSICAL EXAM There were no vitals taken for this visit. SIGNATURE: Conor Dueñas DO PATIENT NAME: Maria Victoria Neely DATE: June 06, 2023 TIME: 7:10 AM I agree with the Chief Complaint, ROS, and Past Histories independently gathered by the clinical child support officer and the remaining scribed note accurately describes my personal service to the patient and I have edited the above note to reflect this. See notes for physical exam and treatment plan. CC - LBP with rt leg pain. Pt presents today with spouse. PHYSICAL EXAM: GENERAL APPEARANCE - well nourished, well hydrated, no apparent distress SKIN - No skin breakdown noted over lumbar spine. HEAD - Normal cephalic, atraumatic EYES - Extra ocular movement intact, no conjunctivitis, no nystagmus. EARS - No drainage noted, pinna intact NOSE - No epistaxis noted THROAT - No thyromegaly, no gross lymphadenopathy LUNGS - Normal respiratory effort, CTA bilaterally CARDIAC - S1S2 VASCULAR - No evidence of peripheral edema, No significant varicosity ABDOMEN - no guarding noted NEURO - Alert and oriented, cooperative, answers questions appropriately GAIT - No significant antalgic gait noted. Able to demonstrate heel and toe stand/walk smoothly. SENSORY EXAM - Grossly intact to superficial light touch bilaterally to lower limbs MOTOR STRENGTH DURING SEATED NEURO EXAM - No apparent weakness bilaterally in Hip flexors, knee extensors, plantar flexors, dorsiflexors and extensor hallux longus. MUSCLE STRETCH REFLEXES - symmetric bilaterally in patella and achilles. Negative Raina's b/l ROM - Lumbar flexion and extension is within functional limits. Lateral bending to rt and lt is within funtional limits. Lt lateral bending caused lt sided LBP HIP ROM - no significant loss in external rotation and internal rotation b/l. KNEE ROM - No significant loss in terminal extension b/l. ANKLE ROM - no significant loss in plantar flexion and dorsiflexion b/l. MUSCLE MASS - No gross muscle atrophy or asymmetry noted bilaterally in lower limb. TENDERNESS - No significant reproduction of pain with palpation of greater trochanter bilaterally. No significant pain with palpation over gluteal muscles. Mild pain with palpation over b/l L3-s1 paraspinous muscles. Negative thigh Thrust b/l Fabers test was negative b/l PACE test was negative b/l Distraction test was negative b/l CINDY SIGNS - 1) Tenderness: Appropriate 2) Simulation/Axial Loading/ROT: Appropriate 3) Distraction: Seated SLR: Appropriate 4) Regional Disturbances: Appropriate 5) Overreaction: Negative. NEURO/PHYSICAL SIGNS: No significant babinski, seated straight leg raising test b/l. Patricks test was negative b/l. RADIOGRAPHY: Reports / films reviewed with patient. Lumbar MRI:05/03/2023 [facility]: Reports to be scanned into EMR or available in the scanned section of EMR The spine is visualized from T11-12 through S2, on the diagnostic sagittal sequences.Alignment: Lumbar lordosis is maintained. Minimal to mild degenerative retrolisthesis L1 over L2 and anterolisthesis of L4 over L5 of approximately 2 to 3 mm. Vertebral body heights and remaining alignment are maintained. Bone marrow signal/fracture: Unremarkable. Conus: The conus is within normal limits of signal intensity and morphology. Paraspinal soft tissues: Paraspinal soft tissues are unremarkable. Lowerthoracic spine: Visualized lower thoracic canal and foramina are without significant narrowing. L1-L2: Broad-based disc bulge. Endplate osteophytes. No significant canal or foraminal narrowing. L2-L3: Broad-based disc bulge. Annular fissure. Facet degenerative changes. No significant canal orforaminal narrowing. L3-L4: Broad-based disc bulge. Facet degenerative changes. Mild bilateral foraminal narrowing without significant canal narrowing. L4-L5: Broad-based disc bulge. Facet degenerative changes. Ligament hypertrophy. Moderate canal narrowing. Mild bilateral foraminal narrowing. Hip Rt Xrays:03/10/2023 [facility]: Reports to be scanned into EMR or available in the scanned section of EMR Slight early degeneration change right hip without acute process. If patient can not bear weight orhas persistent symptoms, then recommend MRI. Lumbar spine MRI: 08/05/19 Report available in computer. L2-L3: Disc bulge narrowing the bilateral subarticular recesses without clear nerve root encroachment and contributing to no more than mild spinal canal narrowing. Patent neural foramina. L3-L4: Disc bulge with bilateral facet hypertrophy contributing to mild spinal canal narrowing and narrowing of the left greater than right subarticular recesses with possible encroachment of the traversing left L4 nerve root. Mild right and moderate left foraminal narrowing. L4-L5: Disc bulge with bilateral facet and ligamentous hypertrophy contributing to bilateral subarticular recess narrowing with possible encroachment of the bilateral traversing L5 nerve roots, mild to moderate spinal canal narrowing, and mild right and moderate left foraminal narrowing. L5-S1: Disc bulge with superimposed small central extrusion encroaching upon the traversing right S1 nerve root though without significant spinal canal narrowing. Bilateral facet hypertrophy contributing to mild bilateral foraminal narrowing. IMPRESSION: See diagnosis. PLAN: Discussed evidence based options including use of medications, non-surgical and surgical options. Educated about likely pathology and reviewed anatomy and prognosis. At present, pt would like to continue with non surgical care. Pt states she has seen several pain management doctors in the past. She has also had injections in the past. She would like to avoid surgical options if possible at present. We will proceed with a right-sided lumbar TOM. Interventional pain procedure epidural injection recommended. Verbal consent was obtained. Risks, benefits, alternatives and personnal were explained. Procedure was described in detail to patients satisfaction. Patient verblizes understanding. Patient is recommended to cancel the procedure if patient has any concerns. Patient to follow up with me at the earliest convenience. ( Rt L5-s1 ) May haveto modify level(s) / location/ approach based on any new relevant information/ imaging/ symptom presentation and response to treatments. The majority of the visit was spent counseling and/or coordinating care for the patient on the dateof the service which included preparing to see the patient, sfxy-ca-lhxg patient care, completing clinical documentation, obtaining and/or reviewing separately obtained history, performing a medically appropriate examination, and educating the patient/family/caregiver and ordering medications, tests, or procedures. Follow up with primary physician for routine care, blood pressure evaluation, labwork, physical exam as scheduled and for any medical concerns. I have answered all the questions regarding patients current diagnosis, care and treatment plan to patients satisfaction during today's visit. Patient verbalize understanding of current diagnosis and treatment plan. Follow up with me as scheduled Notes from todays visit will be forwarded to consulting/requesting physician. Conor Dueñas DO, MBA [facility]* Encounter Date Diagnosis Assessment Notes Treatment Notes Treatment Clinical Notes May, DDD (degenerative disc disease), lumbar (ICD-10 - M51.36) Independently reviewed the plain x-ray of the lumbar spine and the MRI of the lumbar spine and the reports. Patient has a very minimal spondylolisthesis L4-5 with moderate stenosis. She has a lateral recess stenosis. She may have a right L5 radiculopathy its difficult to tell. I am not sure it is disabling I had a long discussion with the patient to talk about the amount of disability and pain she has with this and is it worth a lumbar fusion. In addition I would like to have her see pain management and then receive a transforaminal injection L4-5 and L5-S1 on the right to see if it helps her symptoms. Also I reviewed the DEXA scan from 2021 which shows adequate bone quality. I will see the patient after her injection her and her understand with our discussion has been going she may or may not be a surgical candidate it is left to be determined. May, Spondylolisthesis, lumbar region (ICD-10 - M43.16) May, Lumbar stenosis with neurogenic claudication (ICD-10 - M48.062) [employer] Other 08-28-2023 NoteHNO ID: [id number] Author: Mark Wilson DO Service: ? Author Type: Physician Type: Progress Notes Filed: 05/16/2023 11:20 AM Note Text: [facility] Office [facility] Documentation Note [facility] [place] REASON FOR VISIT / CHIEF COMPLAINT SERVICE DATE: May 16, 2023 PCP: Simona Andres MD CHIEF COMPLAINT: Maria Victoria Neely is a 72 year old female who presents today for follow up office visit. Last visit for this issue 08/29/19. She has had PT and also saw Dr. Evans at [facility] 04/01/23. Patient presents with: Right Hip - Established Patient HISTORY OF PRESENT ILLNESS (HPI) PAIN EVALUATION 05/15/2023 1939 05/16/2023 1015 Pain Level: 4 5 Pain Location: Hip-Right Hip-Right Description: Aching;Throbbing;Tingling Aching;Stabbing;Tingling Duration Amount of Time: 36 -- Duration Units: -- Months Frequency: Continuous Intermittent Intervention/Comfort measure: Medication Relaxation Brief Review: right hip pain Any new injury, since being seen last: No REVIEW OF SYSTEMS ROS: Neurologic: Any numbness or tingling in the LOCAL AREA? Yes, sole of right foot Endocrine: Any diagnosis of diabetes? No ALLERGIES ALLERGIES Allergen Reactions Clindamycin Unknown PAST MEDICAL HISTORY PAST MEDICAL HISTORY Diagnosis Date Lumbosacral radiculopathy 08/20/2019 Osteoporosis, unspecified PHYSICAL EXAMINATION PHYSICAL EXAMINATION: Body Habitus:well nourished, no acute distress, and alert and oriented Psych: normal Sensation: sensation to light touch is grossly normal bilaterally Swelling: no swelling noted Specific MSK Exam Ortho Exam Examination of right hip demonstrates good range of motion. Negative for impingement testing. Straight leg testing is bilaterally normal. Right glute is moderately weak but minimal painful and greater trochanter. Hamstring evaluation is good. DTRs are plus 2 out of 4 L4 bilateral and symmetric. Lower extremity strength is otherwise normal. RADIOLOGY: IMAGING: No imaging was performed today. ASSESSMENT / PLAN CLINICAL IMPRESSION / ASSESSMENT: (M54.17) Lumbosacral radiculopathy (primary encounter diagnosis) RECOMMENDATION / PLAN: She brings x-rays of the hip as well as MRI of the hip which I reviewed personally to demonstrate labral tear of the hip and early degenerative changes with gluteal tendinopathy. I reviewed my MSK ultrasound and previous treatment of the right lateral hip it was where she feels significantly better. Her main symptoms at this time include numbness and tingling in an L4-L5 distribution on the right. She has had multiple injections including EMG evaluation demonstrating L4-L5 right-sided pathology. My recommendation would be to consult Dr. Dueñas in the spine center for further specialized plans to care for her back pain Verbal health education was given to patient. Patient verbalizes understanding and agrees with the treatment plan as detailed above. Mark Wilson D.O. [facility] [place] Team Physician, [facility] Consulting Physician, [place] Solis Bender, Rehabilitation Technician [phone] History of Present illness Narrative* Mark leary, DO - 05/16/2023 10:24 AM EDT Images from the original note were not included. [facility] Visit Documentation Note [facility] [place] REASON FOR VISIT / CHIEF COMPLAINT SERVICE DATE: May 16, 2023 PCP: Simona Andres MD CHIEF COMPLAINT: Maria Victoria Neely is a 72 year old female who presents today for follow up office visit. Last visit for this issue 08/29/19. She has had PT and also saw Dr. Evans at [facility] 04/01/23. Patient presents with: Right Hip - Established Patient HISTORY OF PRESENT ILLNESS (HPI) PAIN EVALUATION 05/15/2023 19305/16/2023 1015 Pain Level: 4 5 Pain Location: Hip-Right Hip-Right Description: Aching;Throbbing;Tingling Aching;Stabbing;Tingling Duration Amount of Time: 36 -- Duration Units: -- Months Frequency: Continuous Intermittent Intervention/Comfort measure: Medication Relaxation Brief Review: right hip pain Any new injury, since being seen last: No REVIEW OF SYSTEMS ROS: Neurologic: Any numbness or tingling in the LOCAL AREA? Yes, sole of right foot Endocrine: Any diagnosis of diabetes? No ALLERGIES ALLERGIES Allergen Reactions Clindamycin Unknown PAST MEDICAL HISTORY PAST MEDICAL HISTORY Diagnosis Date Lumbosacral radiculopathy 08/20/2019 Osteoporosis, unspecified PHYSICAL EXAMINATION PHYSICAL EXAMINATION: Body Habitus:well nourished, no acute distress, and alert and oriented Psych: normal Sensation: sensation to light touch is grossly normal bilaterally Swelling: no swelling noted Specific MSK Exam Ortho Exam Examination of right hip demonstrates good range of motion. Negative for impingement testing. Straight leg testing is bilaterally normal. Right glute is moderately weak but minimal painful and greater trochanter. Hamstring evaluation is good. DTRs are plus 2 out of 4 L4 bilateral and symmetric. Lower extremity strength is otherwise normal. RADIOLOGY: IMAGING: No imaging was performed today. ASSESSMENT / PLAN CLINICAL IMPRESSION / ASSESSMENT: (M54.17) Lumbosacral radiculopathy (primary encounter diagnosis) RECOMMENDATION / PLAN: She brings x-rays of the hip as well as MRI of the hip which I reviewed personally to demonstrate labral tear of the hip and early degenerative changes with gluteal tendinopathy. I reviewed my MSK ultrasound and previous treatment of the right lateral hip it was where she feels significantly better. Her main symptoms at this time include numbness and tingling in an L4-L5 distribution on the right. She has had multiple injections including EMG evaluation demonstrating L4-L5 right-sided pathology. My recommendation would be to consult Dr. Dueñas in the spine center for further specialized plans to care for her back pain Verbal health education was given to patient. Patient verbalizes understanding and agrees with the treatment plan as detailed above. Mark Wilson D.O. [facility] [place] Team Physician, [facility] Consulting Physician, [place] [employer] Bender, Rehabilitation Technician [phone] documented [facility] Hospital Discharge instructions Patient Education 03/17/2023 09:25:11 Insomnia Insomnia Insomnia is a sleep disorder that makes it difficult to fall asleep or stay asleep. Insomnia can cause fatigue, low energy, difficulty concentrating, mood swings, and poor performance at work or school. There are three different ways to classify insomnia: Difficulty falling asleep. Difficulty staying asleep. Waking up too early in the morning. Any type of insomnia can be long-term (chronic) or short-term (acute). Both are common. Short-term insomnia usually lasts for 3 months or less. Chronic insomnia occurs at least three times a week forlonger than 3 months. What are the causes? Insomnia may be caused by another condition, situation, or substance, such as: Having certain mental health conditions, such as anxiety and depression. Using caffeine, alcohol, tobacco, or drugs. Having gastrointestinal conditions, such as gastroesophageal reflux disease (GERD). Having certain medical conditions. These include: ?Asthma. ?Alzheimer's disease. ?Stroke. ?Chronic pain. ?An overactive thyroid gland (hyperthyroidism). Other sleep disorders, such as restless legs syndrome and sleep apnea. Menopause. Sometimes, the cause of insomnia may not be known. What increases the risk? Risk factors for insomnia include: Gender. Females are affected more often than males. Age. Insomnia is more common as people get older. Stress and certain medical and mental health conditions. Lack of exercise. Having an irregular work schedule. This may include working night shifts and traveling between different time zones. What are the signs or symptoms? If you have insomnia, the main symptom is having trouble falling asleep or having trouble staying asleep. This may lead to other symptoms, such as: Feeling tired or having low energy. Feeling nervous about going to sleep. Not feeling rested in the morning. Having trouble concentrating. Feeling irritable, anxious, or depressed. How is this diagnosed? This condition may be diagnosed based on: Your symptoms and medical history. Your health care provider may ask about: ?Your sleep habits. ?Any medical conditions you have. ?Your mental health. A physical exam. How is this treated? Treatment for insomnia depends on the cause. Treatment may focus on treating an underlying condition that is causing the insomnia. Treatment may also include: Medicines to help you sleep. Counseling or therapy. Lifestyle adjustments to help you sleep better. Follow these instructions at home: Eating and drinking Limit or avoid alcohol, caffeinated beverages, and products that contain nicotine and tobacco, especially close to bedtime. These can disrupt your sleep. Do not eat a large meal or eat spicy foods right before bedtime. This can lead to digestive discomfort that can make it hard for you to sleep. Sleep habits Keep a sleep diary to help you and your health care provider figure out what could be causing your insomnia. Write down: ?When you sleep. ?When you wake up during the night. ?How well you sleep and how rested you feel the next day. ?Any side effects of medicines you are taking. ?What you eat and drink. Make your bedroom a dark, comfortable place where it is easy to fall asleep. ?Put up shades or blackout curtains to block light from outside. ?Use a white noise machine to block noise. ?Keep the temperature cool. Limit screen use before bedtime. This includes: ?Not watching TV. ?Not using your smartphone, tablet, or computer. Stick to a routine that includes going to bed and waking up at the same times every day and night. This can help you fall asleep faster. Consider making a quiet activity, such as reading, part of your nighttime routine. Try to avoid taking naps during the day so that you sleep better at night. Get out of bed if you are still awake after 15 minutes of trying to sleep. Keep the lights down, but try reading or doing a quiet activity. When you feel sleepy, go back to bed. General instructions Take wxoo-hoq-anxtmfa and prescription medicines only as told by your health care provider. Exercise regularly as told by your health care provider. However, avoid exercising in the hours right before bedtime. Use relaxation techniques to manage stress. Ask your health care provider to suggest some techniques that may work well for you. These may include: ?Breathing exercises. ?Routines to release muscle tension. ?Visualizing peaceful scenes. Make sure that you drive carefully. Do not drive if you feel very sleepy. Keep all follow-up visits. This is important. Contact a health care provider if: You are tired throughout the day. You have trouble in your daily routine due to sleepiness. You continue to have sleep problems, or your sleep problems get worse. Get help right away if: You have thoughts about hurting yourself or someone else. Get help right away if you feel like you may hurt yourself or others, or have thoughts about takingyour own life. Go to your nearest emergency room or: Call 911. Call the National Suicide Prevention Lifeline at or 966. This is open 24 hours a day. Text the Crisis Text Line at 085687. Summary Insomnia is a sleep disorder that makes it difficult to fall asleep or stay asleep. Insomnia can be long-term (chronic) or short-term (acute). Treatment for insomnia depends on the cause. Treatment may focus on treating an underlying condition that is causing the insomnia. Keep a sleep diary to help you and your health care provider figure out what could be causing your insomnia. This information is not intended to replace advice given to you by your health care provider. Make sure you discuss any questions you have with your health care provider. Document Revised: 08/16/2022 Document Reviewed: 08/16/2022 [employer] Patient Education 2022 [employer] Follow Up Care 09/03/2022 10:05:11 With:MICAELA NG, Simona Webb, [facility] Address: [facility] [address], [place] [address]- When:Within 6 Month(s) [facility] 05-04-2023 NoteCONSULTATION CONSULTATION DATE: 01/20/2023 TO: Raudel Andres D.O. CHIEF COMPLAINT: Severe right sided hip pain, buttock pain. HISTORY: She reports the pain as being 5-7/10 pain, sharp in character with a burning component, increased with activities such as standing, walking and performing transitioning maneuvers. She reports light touch to the affected area is also quite painful. She feels most comfortable in the semi-recumbent position. She denies any change in bowel and bladder habits or new sensorimotor change in the lower extremities. EXAM: Notable for patient having no clinical radiculopathy or myelopathy involving the lower extremities. Patient did have dysesthesia and hypoesthesia along the distribution of the lateral cutaneous branch of the iliohypogastric nerve on the right side. IMPRESSION: She has undergone one diagnostic right sided injection of the lateral cutaneous branch of the iliohypogastric nerve under fluoroscopic guidance. She reports this pain was improved by 90% during the immediate post procedural period, lasting for at least an hour and a half, with recurrence of pain back to her baseline. RECOMMENDATIONS: Based on her response thus far, I recommend she proceed with a rhizotomy using radiofrequency ablation of the lateral cutaneous branch of the iliohypogastric nerve on the right side, under fluoroscopic guidance, and to continue with the current dose of baclofen 10 mg t.i.d. I have gone over the details of the procedure with the patient. All her questions answered. She agrees to proceed with the outlined plan. As part of providing excellent, safe, comprehensive care, the following was completed at our patient's visit: 1. A medication reconciliation and review to ensure accurate knowledge of current/active medications, including asking our patients to inform us about any ucoq-kxd-oqxunnt medications or herbal remedies/nutritional supplements/alternative remedies. 2. A review to specifically ensure our patients have had annual screening for: elevated body mass index (BMI, see intake chart for exact total), tobacco use, screening for depression, and screening for unhealthy alcohol use. When screening is concerning, patients are provided with education and the specific recommendation to discuss the concerning health issue and treatment options with their primary care provider.[facility] [id number] Note CONSULTATION CONSULTATION DATE: 12/23/2022 TO: Dr. Andres CHIEF COMPLAINT: Includes severe right sided hip pain, buttock pain. HISTORY: She reports the pain as being 5-7/10 pain, sharp in nature with a burning component, sensitive to light touch. She also reports standing, walking and performing transitioning maneuvers are quite uncomfortable. She feels most comfortable in the semi-recumbent position. Denies any change in bowel and bladder habits or any new sensorimotor changes on today's visit. EXAM: Notable for patient having no clinical radiculopathy or myelopathy involving the lower extremities. She had nothing to suggest SI joint dysfunction on today's visit. She did have hyperesthesia and dysesthesia overlying the distribution of the lateral cutaneous branch of the iliohypogastric nerve on the right side, and she had severe myofascial spasm of the right gluteus medius. MEDICATION: Current medication includes baclofen and Xanax. She takes baclofen 10 mg daily. She reports it does temper her pain symptoms at times and on occasion it makes her feel lethargic. 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 RECOMMENDATIONS: I recommend she consider increasing her baclofen as tolerated, 10 mg pills, half a pill to one pill up to b.i.d. and to proceed with a diagnostic injection of the lateral cutaneous branch of the iliohypogastric nerve on the right side under fluoroscopic guidance. As part of providing excellent, safe, comprehensive care, the following was completed at our patient's visit: 1. A medication reconciliation and review to ensure accurate knowledge of current/active medications, including asking our patients to inform us about any mycg-cuc-kuzhkys medications or herbal remedies/nutritional supplements/alternative remedies. 2. A review to specifically ensure our patients have had annual screening for: elevated body mass index (BMI, see intake chart for exact total), tobacco use, screening for depression, and screening for unhealthy alcohol use. When screening is concerning, patients are provided with education and the specific recommendation to discuss the concerning health issue and treatment options with their primary care provider.[facility] [id number] Note CONSULTATION PROCEDURE DATE: 11/16/2022 PROCEDURE: Trigger point injection, right lumbar iliocostalis at the L5 level. PREOPERATIVE DIAGNOSIS: SI joint dysfunction, myofascial spasm, dysfunction of the lumbar iliocostalis muscle on the right side. POSTOPERATIVE DIAGNOSIS: SI joint dysfunction, myofascial spasm, dysfunction of the lumbar iliocostalis muscle on the right side. IMMEDIATE COMPLICATIONS: None. SOLUTION USED FOR INJECTION: 2 mL of 2% lidocaine, 2 mL of 0.25% Marcaine, 40 mg of Kenalog, a total of 5 mL. PROCEDURE: After informed consent was obtained from the patient, placed in the sitting position. Skin overlying the area was prepped with alcohol. A 25 gauge, 1.5 needle was inserted approximately 4 cm from the midline, at the level of the L5 spinous process. Needle was advanced until there was a mild twitch response when the needle encountered the belly of the iliocostalis muscle, at which point we ruled out intravascular or intraneural needle tip placement. 1 mL of solution was injected. Post procedure, needle was removed. No indication of intravascular or intraneural needle tip placement or injection was noted. She reports reduction of pain symptoms post procedurally. [facility] [id number] NoteCONSULTATION CONSULTATION DATE: 11/16/2022 HISTORY OF PRESENT ILLNESS: She returns complaining of severe pain in her right lower back area, right hip area. It is described as 5-7/10, sharp in character with a burning component, which is sensitive to even light touch. She reports the pain as being increased with activities such as standing, walking and performing transitioning maneuvers. She feels the most comfortable in a semi-recumbent position. Denies any change in bowel and bladder habits or new sensorimotor changes in the lower extremities. Patient does report that she has sensitivity to light to touch overlying the right gluteal area, right lateral hip area. EXAM: Our examination is notable for the patient having dysesthesia and hypoesthesia overlying the distribution of the right lateral cutaneous branch of the iliohypogastric nerve. Patient also has tenderness along the right SI joint, positive right sided pelvic rock test, pelvic compression test and positive Gaenslen's maneuver and a positive right sided Pernell's test. She has severe myofascial spasm of the lumbar iliocostalis muscle on the right side at approximately L5 level. IMPRESSION: 1. 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 2. Severe myofascial dysfunction and spasm of the right lumbar iliocostalis muscle, most likely as a result of her SI joint dysfunction and recent flare, which has been unresponsive to medication management which includes naproxen, baclofen, activity modification and a home exercise program. RECOMMENDATIONS: I recommend she proceed with a right SI joint injection under fluoroscopic guidance, trigger point injection of the right lumbar iliocostalis muscle. I have increased her baclofen 10 mg pill, half a pill to one pill t.i.d. as tolerated. I have gone over the details of the procedure with the patient. All of her questions were answered. She agrees to proceed with our plan.[facility] [id number] Hospital Discharge instructions Follow Up Care 10/29/2022 10:25:21 With:Babar Davidson MD, PUL, ASHLY Address: [address] [place] [address] [place] [address]- When:1 year [facility]02-01-2023 Hospital Discharge instructions Follow Up Care 10/20/2022 14:44:25 With:Babar Davidson MD, PUL, ASHLY Address: [address] [place] [address] Pulmonary Clinic (Heart & Vascular) [place] [address]- When: Unknown Comments:after his testing is completed [facility]01-24-2023 NoteCONSULTATION PROCEDURE DATE: 10/12/2022 PREOPERATIVE DIAGNOSIS: Bilateral gluteal spasms, right trochanteric bursitis. POSTOPERATIVE DIAGNOSIS: Bilateral gluteal spasms, right trochanteric bursitis. PROCEDURE: Bilateral gluteal trigger point injections and right trochanteric bursa injection. Subsequent to obtaining informed consent, the patient was placed in the prone position. Alcohol prep was used to sterilize the site. A 25 gauge needle was advanced and it comes to rest along the right gluteal trigger zone, along the gluteus matt and medius, and the same on the left hand side. Marcaine 0.125% along with Kenalog 10 mg in 0.75 cc is injected. Next, attention is placed to the right trochanteric bursa. Negative aspiration. Marcaine 0.125% along with Kenalog 20 mg are injected to the site in a 1 cc volume. Negative heme. The patient tolerates the procedure well, without any overt complication and will be followed up in the office.[facility] 10-12-2022 NoteCONSULTATION CONSULTATION DATE: 10/12/2022 CHIEF COMPLAINT: Bilateral gluteal pain, right hip pain. HISTORY OF PRESENT ILLNESS: This is a very pleasant, 72-year-old female who has right hip pain, right thigh pain, low back pain. The patient in the remote past, in March, had a rhizotomy along the lumbar spine. This has afforded her substantial improvement. Her day-to-day activity has improved; however, with the change in weather, the patient reports having increasing pain when standing too long, housework, lifting activities. The patient recently was started on CPAP and can no longer sleep on her back. Sleeping on her sides aggravates the patient's pain. The patient takes naproxen b.i.d., Xanax 1 mg daily, baclofen 10 mg h.s., citalopram 20 mg, trazodone 100 mg h.s. The patient's PAST MEDICAL HISTORY / SURGICAL HISTORY / REVIEW OF SYSTEMS are noted on the chart, along with the MEDICATION LIST, ALLERGIES and RADIOLOGICAL IMAGES. PHYSICAL EXAM: Upon physical examination, this is a pleasant, cooperative female, who does not appear to be in any acute distress. VITAL SIGNS: Stable at 130/72 with a heart rate of 99. At a height of 5'1 , the patient weighs 62 kg. HEAD: Atraumatic, normocephalic. NECK: No mass or induration is noted. HEART: Negative orthopnea. LUNGS: Negative dyspnea. ABDOMEN: Soft, non-distended. BACK: No overt paravertebral spasming. The patient has two jump responses along the gluteal muscle; matt and medius bilaterally, where the nerve perforates. The patient is exquisitely tender along the right trochanteric bursa. Trigger points are noted along the right IT band. EXTREMITIES: No pedal edema. MUSCULOSKELETAL: Intact in the lower extremity at 5/5 bilaterally. NEUROLOGICALLY: No radicular symptomatology. PSYCHIATRICALLY: Affect is appropriate. IMPRESSION: Bilateral gluteal muscle spasm, right trochanteric bursitis, trigger points along right IT band. PLAN: The patient is to apply heat rub to her low back and right trochanteric bursa, along with performing a myofascial release with the heal of her hand along the right IT band. In the interim, we will inject the right trochanteric bursa in office today and the gluteal trigger points bilaterally. The patient understands and would like to proceed. CC: Simona Andres M.D.[facility]12-16-2022 Hospital Discharge instructions Patient Education 09/03/2022 09:53:50 Insomnia Insomnia Insomnia is a sleep disorder that makes it difficult to fall asleep or stay asleep. Insomnia can cause fatigue, low energy, difficulty concentrating, mood swings, and poor performance at work or school. There are three different ways to classify insomnia: Difficulty falling asleep. Difficulty staying asleep. Waking up too early in the morning. Any type of insomnia can be long-term (chronic) or short-term (acute). Both are common. Short-term insomnia usually lasts for three months or less. Chronic insomnia occurs at least three times a weekfor longer than three months. What are the causes? Insomnia may be caused by another condition, situation, or substance, such as: Anxiety. Certain medicines. Gastroesophageal reflux disease (GERD) or other gastrointestinal conditions. Asthma or other breathing conditions. Restless legs syndrome, sleep apnea, or other sleep disorders. Chronic pain. Menopause. Stroke. Abuse of alcohol, tobacco, or illegal drugs. Mental health conditions, such as depression. Caffeine. Neurological disorders, such as Alzheimer's disease. An overactive thyroid (hyperthyroidism). Sometimes, the cause of insomnia may not be known. What increases the risk? Risk factors for insomnia include: Gender. Women are affected more often than men. Age. Insomnia is more common as you get older. Stress. Lack of exercise. Irregular work schedule or working night shifts. Traveling between different time zones. Certain medical and mental health conditions. What are the signs or symptoms? If you have insomnia, the main symptom is having trouble falling asleep or having trouble staying asleep. This may lead to other symptoms, such as: Feeling fatigued or having low energy. Feeling nervous about going to sleep. Not feeling rested in the morning. Having trouble concentrating. Feeling irritable, anxious, or depressed. How is this diagnosed? This condition may be diagnosed based on: Your symptoms and medical history. Your health care provider may ask about: ?Your sleep habits. ?Any medical conditions you have. ?Your mental health. A physical exam. How is this treated? Treatment for insomnia depends on the cause. Treatment may focus on treating an underlying condition that is causing insomnia. Treatment may also include: Medicines to help you sleep. Counseling or therapy. Lifestyle adjustments to help you sleep better. Follow these instructions at home: Eating and drinking Limit or avoid alcohol, caffeinated beverages, and cigarettes, especially close to bedtime. These can disrupt your sleep. Do not eat a large meal or eat spicy foods right before bedtime. This can lead to digestive discomfort that can make it hard for you to sleep. Sleep habits Keep a sleep diary to help you and your health care provider figure out what could be causing your insomnia. Write down: ?When you sleep. ?When you wake up during the night. ?How well you sleep. ?How rested you feel the next day. ?Any side effects of medicines you are taking. ?What you eat and drink. Make your bedroom a dark, comfortable place where it is easy to fall asleep. ?Put up shades or blackout curtains to block light from outside. ?Use a white noise machine to block noise. ?Keep the temperature cool. Limit screen use before bedtime. This includes: ?Watching TV. ?Using your smartphone, tablet, or computer. Stick to a routine that includes going to bed and waking up at the same times every day and night. This can help you fall asleep faster. Consider making a quiet activity, such as reading, part of your nighttime routine. Try to avoid taking naps during the day so that you sleep better at night. Get out of bed if you are still awake after 15 minutes of trying to sleep. Keep the lights down, but try reading or doing a quiet activity. When you feel sleepy, go back to bed. General instructions Take ysaa-spt-vluliai and prescription medicines only as told by your health care provider. Exercise regularly, as told by your health care provider. Avoid exercise starting several hours before bedtime. Use relaxation techniques to manage stress. Ask your health care provider to suggest some techniques that may work well for you. These may include: ?Breathing exercises. ?Routines to release muscle tension. ?Visualizing peaceful scenes. Make sure that you drive carefully. Avoid driving if you feel very sleepy. Keep all follow-up visits as told by your health care provider. This is important. Contact a health care provider if: You are tired throughout the day. You have trouble in your daily routine due to sleepiness. You continue to have sleep problems, or your sleep problems get worse. Get help right away if: You have serious thoughts about hurting yourself or someone else. If you ever feel like you may hurt yourself or others, or have thoughts about taking your own life,get help right away. You can go to your nearest emergency department or call: Your local emergency services (911 in the [place] A suicide crisis helpline, such as the National Suicide Prevention Lifeline at . Thisis open 24 hours a day. Summary Insomnia is a sleep disorder that makes it difficult to fall asleep or stay asleep. Insomnia can be long-term (chronic) or short-term (acute). Treatment for insomnia depends on the cause. Treatment may focus on treating an underlying condition that is causing insomnia. Keep a sleep diary to help you and your health care provider figure out what could be causing your insomnia. This information is not intended to replace advice given to you by your health care provider. Make sure you discuss any questions you have with your health care provider. Document Released: 09/02/2001 Document Revised: 08/18/2018 Document Reviewed: 06/15/2018 [employer] Patient Education 2020 [employer]. Follow Up Care 03/03/2022 09:50:24 With:MICAELA NG, Simona Webb, [facility] Address: [facility] [address], [place] [address]- When:Within 6 Month(s) [facility] 11-22-2022 Hospital Discharge instructions Patient Education 08/10/2022 14:55:42 How to Perform a Sinus Rinse How to Perform a Sinus Rinse A sinus rinse is a home treatment that is used to rinse your sinuses with a sterile mixture of saltand water (saline solution). Sinuses are air-filled spaces in your skull behind the bones of your face and forehead that open into your nasal cavity. A sinus rinse can help to clear mucus, dirt, dust, or pollen from your nasal cavity. You may do a sinus rinse when you have a cold, a virus, nasal allergy symptoms, a sinus infection, or stuffiness in your nose or sinuses. Talk with your health care provider about whether a sinus rinse might help you. What are the risks? A sinus rinse is generally safe and effective. However, there are a few risks, which include: A burning sensation in your sinuses. This may happen if you do not make the saline solution as directed. Be sure to follow all directions when making the saline solution. Nasal irritation. Infection from contaminated water. This is rare, but possible. Do not do a sinus rinse if you have had ear or nasal surgery, ear infection, or blocked ears. Supplies needed: Saline solution or powder. Distilled or sterile water may be needed to mix with saline powder. ?You may use boiled and cooled tap water. Boil tap water for 5 minutes; cool until it is lukewarm. Use within 24 hours. ?Do not use regular tap water to mix with the saline solution. Neti pot or nasal rinse bottle. These supplies release the saline solution into your nose and through your sinuses. Neti pots and nasal rinse bottles can be purchased at your local pharmacy, a [employer] store, or online. How to perform a sinus rinse 1.Wash your hands with soap and water. 2.Wash your device according to the directions that came with the product and then dry it. 3.Use the solution that comes with your product or one that is sold separately in stores. Follow the mixing directions on the package if you need to mix with sterile or distilled water. 4.Fill the device with the amount of saline solution noted in the device instructions. 5.Stand over a sink and tilt your head sideways over the sink. 6.Place the spout of the device in your upper nostril (the one closer to the ceiling). 7.Gently pour or squeeze the saline solution into your nasal cavity. The liquid should drain out from the lower nostril if you are not too congested. 8.While rinsing, breathe through your open mouth. 9.Gently blow your nose to clear any mucus and rinse solution. Blowing too hard may cause ear pain. 10.Repeat in your other nostril. 11.Clean and rinse your device with clean water and then air-dry it. Talk with your health care provider or pharmacist if you have questions about how to do a sinus rinse. Summary A sinus rinse is a home treatment that is used to rinse your sinuses with a sterile mixture of saltand water (saline solution). A sinus rinse is generally safe and effective. Follow all instructions carefully. Before doing a sinus rinse, talk with your health care provider about whether it would be helpful for you. This information is not intended to replace advice given to you by your health care provider. Make sure you discuss any questions you have with your health care provider. Document Released: 04/02/2015 Document Revised: 07/03/2018 Document Reviewed: 07/03/2018 [employer] Patient Education 2020 [employer]. 08/10/2022 14:55:38 Sinusitis, Adult Sinusitis, Adult Sinusitis is inflammation of your sinuses. Sinuses are hollow spaces in the bones around your face.Your sinuses are located: Around your eyes. In the middle of your forehead. Behind your nose. In your cheekbones. Mucus normally drains out of your sinuses. When your nasal tissues become inflamed or swollen, mucus can become trapped or blocked. This allows bacteria, viruses, and fungi to grow, which leads to infection. Most infections of the sinuses are caused by a virus. Sinusitis can develop quickly. It can last for up to 4 weeks (acute) or for more than 12 weeks (chronic). Sinusitis often develops after a cold. What are the causes? This condition is caused by anything that creates swelling in the sinuses or stops mucus from draining. This includes: Allergies. Asthma. Infection from bacteria or viruses. Deformities or blockages in your nose or sinuses. Abnormal growths in the nose (nasal polyps). Pollutants, such as chemicals or irritants in the air. Infection from fungi (rare). What increases the risk? You are more likely to develop this condition if you: Have a weak body defense system (immune system). Do a lot of swimming or diving. Overuse nasal sprays. Smoke. What are the signs or symptoms? The main symptoms of this condition are pain and a feeling of pressure around the affected sinuses.Other symptoms include: Stuffy nose or congestion. Thick drainage from your nose. Swelling and warmth over the affected sinuses. Headache. Upper toothache. A cough that may get worse at night. Extra mucus that collects in the throat or the back of the nose (postnasal drip). Decreased sense of smell and taste. Fatigue. A fever. Sore throat. Bad breath. How is this diagnosed? This condition is diagnosed based on: Your symptoms. Your medical history. A physical exam. Tests to find out if your condition is acute or chronic. This may include: ?Checking your nose for nasal polyps. ?Viewing your sinuses using a device that has a light (endoscope). ?Testing for allergies or bacteria. ?Imaging tests, such as an MRI or CT scan. In rare cases, a bone biopsy may be done to rule out more serious types of fungal sinus disease. How is this treated? Treatment for sinusitis depends on the cause and whether your condition is chronic or acute. If caused by a virus, your symptoms should go away on their own within 10 days. You may be given medicines to relieve symptoms. They include: ?Medicines that shrink swollen nasal passages (topical intranasal decongestants). ?Medicines that treat allergies (antihistamines). ?A spray that eases inflammation of the nostrils (topical intranasal corticosteroids). ?Rinses that help get rid of thick mucus in your nose (nasal saline washes). If caused by bacteria, your health care provider may recommend waiting to see if your symptoms improve. Most bacterial infections will get better without antibiotic medicine. You may be given antibiotics if you have: ?A severe infection. ?A weak immune system. If caused by narrow nasal passages or nasal polyps, you may need to have surgery. Follow these instructions at home: Medicines Take, use, or apply puxy-ege-dffvfgk and prescription medicines only as told by your health care provider. These may include nasal sprays. If you were prescribed an antibiotic medicine, take it as told by your health care provider. Do notstop taking the antibiotic even if you start to feel better. Hydrate and humidify Drink enough fluid to keep your urine pale yellow. Staying hydrated will help to thin your mucus. Use a cool mist humidifier to keep the humidity level in your home above 50%. Inhale steam for 10 15 minutes, 3 4 times a day, or as told by your health care provider. You can do this in the bathroom while a hot shower is running. Limit your exposure to cool or dry air. Rest Rest as much as possible. Sleep with your head raised (elevated). Make sure you get enough sleep each night. General instructions Apply a warm, moist washcloth to your face 3 4 times a day or as told by your health care provider.This will help with discomfort. Wash your hands often with soap and water to reduce your exposure to germs. If soap and water are not available, use hand hook up driver. Do not smoke. Avoid being around people who are smoking (secondhand smoke). Keep all follow-up visits as told by your health care provider. This is important. Contact a health care provider if: You have a fever. Your symptoms get worse. Your symptoms do not improve within 10 days. Get help right away if: You have a severe headache. You have persistent vomiting. You have severe pain or swelling around your face or eyes. You have vision problems. You develop confusion. Your neck is stiff. You have trouble breathing. Summary Sinusitis is soreness and inflammation of your sinuses. Sinuses are hollow spaces in the bones around your face. This condition is caused by nasal tissues that become inflamed or swollen. The swelling traps or blocks the flow of mucus. This allows bacteria, viruses, and fungi to grow, which leads to infection. If you were prescribed an antibiotic medicine, take it as told by your health care provider. Do notstop taking the antibiotic even if you start to feel better. Keep all follow-up visits as told by your health care provider. This is important. This information is not intended to replace advice given to you by your health care provider. Make sure you discuss any questions you have with your health care provider. Document Released: 09/05/2006 Document Revised: 02/05/2019 Document Reviewed: 02/05/2019 [employer] Patient Education 2020 [employer]. Follow Up Care 08/10/2022 11:59:19 With:MICAELA NG, Simona Webb, [facility] Address: [address], [place] [address]- When: Unknown [facility] 10-26-2022 NoteCONSULTATION PROCEDURE DATE: 07/14/2022 PREOPERATIVE DIAGNOSIS: Left lumbar spasm and right greater trochanteric bursitis. POSTOPERATIVE DIAGNOSIS: Left lumbar spasm and right greater trochanteric bursitis. PROCEDURE: Left lumbar trigger point injection and right greater trochanteric bursa injection. Subsequent to obtaining informed consent, the patient was placed in the upright standing forward flexion position. Alcohol prep was used to sterilize the site. A 25 gauge needle with 0.125% Marcaine and 40 mg of Kenalog was used in two locations. The needle was placed to rest inside the left lumbar trigger zone. Negative heme. Medication was injected in a slow, fan-like pattern. Right hip bursa site was cleaned with alcohol prep. Needle was placed to rest include the bursa and advanced. Medication was slowly injected. Patient tolerated both procedures well.[facility] [id number] NoteCONSULTATION CONSULTATION DATE: 07/14/2022 HISTORY OF PRESENT ILLNESS: This is a pleasant, 71-year-old female returning to the clinic for a three month follow up for chronic lower back pain. She was last seen on 04/13/2022, which at that point she was status post lumbar RFA and she received a lumbar trigger point injection at that appointment. She is reporting that gave her 80% relief for her back spasm. Overall, she feels that she is doing quite well. She reports her pain 2-3/10. She was doing excessive amounts of yard work the past few days, from which she is having some lower back pain. She is complaining of pain while she lays on her right side and pain is to the right hip. Pain is increased with physical activity and the evening hours. Medications include naproxen 500 mg b.i.d., trazodone, baclofen and citalopram. She is currently being worked up for sleep apnea with a CPAP pending. Patient's REVIEW OF SYSTEMS / PAST MEDICAL HISTORY / ALLERGIES and IMAGES have been reviewed and they are noted on the chart. PHYSICAL EXAM: VITAL SIGNS: Blood pressure 123/66, heart rate is 100. Temperature is 97.5. She is 5'1 , weighs 60 kg. GENERAL IMPRESSION: Pleasant, appropriate, no acute distress. FOCUSED EXAM - BACK: Range of motion is functional in lateral rotation and flexion/extension. No reproduction of spinal axial pain upon compression of the lumbar facets. Left paravertebral muscle is spasmodic with a trigger point identified along the erector spinae. Compression of that muscle reproduces patient's symptomatology. Tonia's point mildly tender to the right with no radiating pain. FABERs and compression tests are negative. MUSCULOSKELETAL: Motor is intact, 4/5 bilaterally. Patient walks with a stable, antalgic gait. Edema noted to right greater trochanteric bursa and, upon palpation, pain is reproduced. Right hip is functional in adduction and abduction. NEUROLOGICALLY: Radicular sensory is intact. Patchy hypoesthesia noted along right L5 dermatome to the level of the mid thigh. DIAGNOSIS: Right greater trochanteric bursitis, left lumbar spasm, lumbar spondylosis, lumbar degenerative disc disease. PLAN: Patient will receive a left lumbar trigger point injection and a right hip bursa injection, which she does consent to today. She is to continue Naprosyn, baclofen and is to increase the frequency of heat and menthol topical application to her back and her hip. She will be seen in the clinic in three months' time, unless otherwise indicated, and patient agrees with the plan of care.[facility] [id number] Hospital Discharge instructions Follow Up Care 05/31/2022 10:01:34 With:Stuart NG, Babar Peace, PUL, ASHLY Address: [address] [place] [address] Pulmonary Clinic (Heart & Vascular) [place] [address]- When: Unknown Comments:after his testing is completed [facility]08-17-2022 Hospital Discharge instructions Patient Education 05/05/2022 14:44:34 BMI for Adults BMI for Adults Body mass index (BMI) is a number that is calculated from a person's weight and height. BMI may help to estimate how much of a person's weight is composed of fat. BMI can help identify those who may be at higher risk for certain medical problems. How is BMI used with adults? BMI is used as a screening tool to identify possible weight problems. It is used to check whether aperson is obese, overweight, healthy weight, or underweight. How is BMI calculated? BMI measures your weight and compares it to your height. This can be done either in [place] ([place] or metric measurements. Note that charts are available to help you find your BMI quickly and easily without having to do these calculations yourself. To calculate your BMI in [place] measurements, your health care provider will: 1.Measure your weight in pounds (lb). 2.Multiply the number of pounds by 703. For example, for a person who weighs 180 lb, multiply that number by 703, which equals [phone],540. 3.Measure your height in inches (in). Then multiply that number by itself to get a measurement called inches squared. For example, for a person who is 70 in tall, the inches squared measurement is 70 in x 70 in, which equals 4900 inches squared. 4.Divide the total from Step 2 (number of lb x 703) by the total from Step 3 (inches squared): 126,540 4900 = 25.8. This is your BMI. To calculate your BMI in metric measurements, your health care provider will: 1.Measure your weight in kilograms (kg). 2.Measure your height in meters (m). Then multiply that number by itself to get a measurement called meters squared. For example, for a person who is 1.75 m tall, the meters squared measurement is 1.75 m x 1.75 m, which is equal to 3.1 meters squared. 3.Divide the number of kilograms (your weight) by the meters squared number. In this example: 70 3.1 = 22.6. This is your BMI. How is BMI interpreted? To interpret your results, your health care provider will use BMI charts to identify whether you are underweight, normal weight, overweight, or obese. The following guidelines will be used: Underweight: BMI less than 18.5. Normal weight: BMI between 18.5 and 24.9. Overweight: BMI between 25 and 29.9. Obese: BMI of 30 and above. Please note: Weight includes both fat and muscle, so someone with a muscular build, such as an athlete, may havea BMI that is higher than 24.9. In cases like these, BMI is not an accurate measure of body fat. To determine if excess body fat is the cause of a BMI of 25 or higher, further assessments may needto be done by a health care provider. BMI is usually interpreted in the same way for men and women. Why is BMI a useful tool? BMI is useful in two ways: Identifying a weight problem that may be related to a medical condition, or that may increase the risk for medical problems. Promoting lifestyle and diet changes in order to reach a healthy weight. Summary Body mass index (BMI) is a number that is calculated from a person's weight and height. BMI may help to estimate how much of a person's weight is composed of fat. BMI can help identify those who may be at higher risk for certain medical problems. BMI can be measured using Afghan measurements or metric measurements. To interpret your results, your health care provider will use BMI charts to identify whether you are underweight, normal weight, overweight, or obese. This information is not intended to replace advice given to you by your health care provider. Make sure you discuss any questions you have with your health care provider. Document Released: 05/17/2005 Document Revised: 08/18/2018 Document Reviewed: 07/19/2018 [employer] Patient Education 2020 [employer] 05/05/2022 14:44:32 Constipation, Adult Constipation, Adult Constipation is when a person has fewer bowel movements in a week than normal, has difficulty having a bowel movement, or has stools that are dry, hard, or larger than normal. Constipation may be caused by an underlying condition. It may become worse with age if a person takes certain medicines anddoes not take in enough fluids. Follow these instructions at home: Eating and drinking Eat foods that have a lot of fiber, such as fresh fruits and vegetables, whole grains, and beans. Limit foods that are high in fat, low in fiber, or overly processed, such as kiswahili fries, hamburgers, cookies, candies, and soda. Drink enough fluid to keep your urine clear or pale yellow. General instructions Exercise regularly or as told by your health care provider. Go to the restroom when you have the urge to go. Do not hold it in. Take gsux-bna-uhdaxho and prescription medicines only as told by your health care provider. These include any fiber supplements. Practice pelvic floor retraining exercises, such as deep breathing while relaxing the lower abdomenand pelvic floor relaxation during bowel movements. Watch your condition for any changes. Keep all follow-up visits as told by your health care provider. This is important. Contact a health care provider if: You have pain that gets worse. You have a fever. You do not have a bowel movement after 4 days. You vomit. You are not hungry. You lose weight. You are bleeding from the anus. You have thin, pencil-like stools. Get help right away if: You have a fever and your symptoms suddenly get worse. You leak stool or have blood in your stool. Your abdomen is bloated. You have severe pain in your abdomen. You feel dizzy or you faint. This information is not intended to replace advice given to you by your health care provider. Make sure you discuss any questions you have with your health care provider. Document Released: 06/03/2005 Document Revised: 08/18/2018 Document Reviewed: 02/23/2017 [employer] Patient Education 2020 [employer]. 05/05/2022 14:44:30 CPAP and BPAP Information CPAP and BPAP Information CPAP and BPAP are methods of helping a person breathe with the use of air pressure. CPAP stands for continuous positive airway pressure. BPAP stands for bi-level positive airway pressure. In bothmethods, air is blown through your nose or mouth and into your air passages to help you breathe well. CPAP and BPAP use different amounts of pressure to blow air. With CPAP, the amount of pressure stays the same while you breathe in and out. With BPAP, the amount of pressure is increased when you breathe in (inhale) so that you can take larger breaths. Your health care provider will recommend whether CPAP or BPAP would be more helpful for you. Why are CPAP and BPAP treatments used? CPAP or BPAP can be helpful if you have: Sleep apnea. Chronic obstructive pulmonary disease (COPD). Heart failure. Medical conditions that weaken the muscles of the chest including muscular dystrophy, or neurological diseases such as amyotrophic lateral sclerosis (ALS). Other problems that cause breathing to be weak, abnormal, or difficult. CPAP is most commonly used for obstructive sleep apnea (KAYLA) to keep the airways from collapsing when the muscles relax during sleep. How is CPAP or BPAP administered? Both CPAP and BPAP are provided by a small machine with a flexible plastic tube that attaches to a plastic mask. You wear the mask. Air is blown through the mask into your nose or mouth. The amount of pressure that is used to blow the air can be adjusted on the machine. Your health care provider will determine the pressure setting that should be used based on your individual needs. When should CPAP or BPAP be used? In most cases, the mask only needs to be worn during sleep. Generally, the mask needs to be worn throughout the night and during any daytime naps. People with certain medical conditions may also needto wear the mask at other times when they are awake. Follow instructions from your health care provider about when to use the machine. What are some tips for using the mask? Because the mask needs to be snug, some people feel trapped or closed-in (claustrophobic) when first using the mask. If you feel this way, you may need to get used to the mask. One way to do this is by holding the mask loosely over your nose or mouth and then gradually applying the mask more snugly. You can also gradually increase the amount of time that you use the mask. Masks are available in various types and sizes. Some fit over your mouth and nose while others fit over just your nose. If your mask does not fit well, talk with your health care provider about getting a different one. If you are using a mask that fits over your nose and you tend to breathe through your mouth, a chinstrap may be applied to help keep your mouth closed. The CPAP and BPAP machines have alarms that may sound if the mask comes off or develops a leak. If you have trouble with the mask, it is very important that you talk with your health care provider about finding a way to make the mask easier to tolerate. Do not stop using the mask. Stopping the use of the mask could have a negative impact on your health. What are some tips for using the machine? Place your CPAP or BPAP machine on a secure table or stand near an electrical outlet. Know where the on/off switch is located on the machine. Follow instructions from your health care provider about how to set the pressure on your machine and when you should use it. Do not eat or drink while the CPAP or BPAP machine is on. Food or fluids could get pushed into yourlungs by the pressure of the CPAP or BPAP. Do not smoke. Tobacco smoke residue can damage the machine. For home use, CPAP and BPAP machines can be rented or purchased through home health care companies.Many different brands of machines are available. Renting a machine before purchasing may help you find out which particular machine works well for you. Keep the CPAP or BPAP machine and attachments clean. Ask your health care provider for specific instructions. Get help right away if: You have redness or open areas around your nose or mouth where the mask fits. You have trouble using the CPAP or BPAP machine. You cannot tolerate wearing the CPAP or BPAP mask. You have pain, discomfort, and bloating in your abdomen. Summary CPAP and BPAP are methods of helping a person breathe with the use of air pressure. Both CPAP and BPAP are provided by a small machine with a flexible plastic tube that attaches to a plastic mask. If you have trouble with the mask, it is very important that you talk with your health care provider about finding a way to make the mask easier to tolerate. This information is not intended to replace advice given to you by your health care provider. Make sure you discuss any questions you have with your health care provider. Document Released: 06/03/2005 Document Revised: 12/26/2019 Document Reviewed: 07/25/2017 [employer] Patient Education 2020 [employer]. 05/05/2022 14:44:27 Hearing Loss Hearing Loss Hearing loss is a partial or total loss of the ability to hear. This can be temporary or permanent,and it can happen in one or both ears. Medical care is necessary to treat hearing loss properly and to prevent the condition from getting worse. Your hearing may partially or completely come back, depending on what caused your hearing loss and how severe it is. In some cases, hearing loss is permanent. What are the causes? Common causes of hearing loss include: Too much wax in the ear canal. Infection of the ear canal or middle ear. Fluid in the middle ear. Injury to the ear or surrounding area. An object stuck in the ear. A history of prolonged exposure to loud sounds, such as music. Less common causes of hearing loss include: Tumors in the ear. Viral or bacterial infections, such as meningitis. A hole in the eardrum (perforated eardrum). Problems with the hearing nerve that sends signals between the brain and the ear. Certain medicines. What are the signs or symptoms? Symptoms of this condition may include: Difficulty telling the difference between sounds. Difficulty following a conversation when there is background noise. Lack of response to sounds in your environment. This may be most noticeable when you do not respondto startling sounds. Needing to turn up the volume on the television, radio, or other devices. Ringing in the ears. Dizziness. How is this diagnosed? This condition is diagnosed based on: A physical exam. A hearing test (audiometry). The audiometry test will be performed by a insurance follow up specialist (winch driver). You may also be referred to an ear, nose, and throat (ENT) specialist (hair designer). How is this treated? Treatment for hearing loss may include: Ear wax removal. Medicines to treat or prevent infection (antibiotics). Medicines to reduce inflammation (corticosteroids). Hearing aids for hearing loss related to nerve damage. Follow these instructions at home: If you were prescribed an antibiotic medicine, take it as told by your health care provider. Do notstop taking the antibiotic even if you start to feel better. Take ongq-jyy-ifaivzo and prescription medicines only as told by your health care provider. Avoid loud noises. Return to your normal activities as told by your health care provider. Ask your health care provider what activities are safe for you. Keep all follow-up visits as told by your health care provider. This is important. Contact a health care provider if: You feel dizzy. You develop new symptoms. You vomit or feel nauseous. You have a fever. Get help right away if: You develop sudden changes in your vision. You have severe ear pain. You have new or increased weakness. You have a severe headache. Summary Hearing loss is a decreased ability to hear sounds around you. It can be temporary or permanent. Treatment will depend on the cause of your hearing loss. It may include ear wax removal, medicines,or a hearing aid. Your hearing may partially or completely come back, depending on what caused your hearing loss and how severe it is. Keep all follow-up visits as told by your health care provider. This is important. This information is not intended to replace advice given to you by your health care provider. Make sure you discuss any questions you have with your health care provider. Document Released: 09/05/2006 Document Revised: 06/05/2019 Document Reviewed: 06/05/2019 [employer] Patient Education 2020 [employer] 05/05/2022 14:44:23 Tinnitus Tinnitus Tinnitus refers to hearing a sound when there is no actual source for that sound. This is often described as ringing in the ears. However, people with this condition may hear a variety of noises, in one ear or in both ears. The sounds of tinnitus can be soft, loud, or somewhere in between. Tinnitus can last for a few seconds or can be constant for days. It may go away without treatment and come back at various times. When tinnitus is constant or happens often, it can lead to other problems, such as trouble sleeping and trouble concentrating. Almost everyone experiences tinnitus at some point. Tinnitus that is long- lasting (chronic) or comes back often (recurs) may require medical attention. What are the causes? The cause of tinnitus is often not known. In some cases, it can result from other problems or conditions, including: Exposure to loud noises from machinery, music, or other sources. Hearing loss. Ear or sinus infections. Earwax buildup. An object (foreign body) stuck in the ear. Taking certain medicines. Drinking alcohol or caffeine. High blood pressure. Heart diseases. Anemia. Allergies. Meniere's disease. Thyroid problems. Tumors. A weak, bulging blood vessel (aneurysm) near the ear. Depression or other mood disorders. What are the signs or symptoms? The main symptom of tinnitus is hearing a sound when there is no source for that sound. It may sound like: Buzzing. Roaring. Ringing. Blowing air, like the sound heard when you listen to a seashell. Hissing. Whistling. Sizzling. Humming. Running water. A musical note. Tapping. Symptoms may affect only one ear (unilateral) or both ears (bilateral). How is this diagnosed? Tinnitus is diagnosed based on your symptoms, your medical history, and a physical exam. Your health care provider may do a thorough hearing test (audiologic exam) if your tinnitus: Is unilateral. Causes hearing difficulties. Lasts 6 months or longer. You may work with a health care provider who specializes in hearing disorders (winch driver). You may be asked questions about your symptoms and how they affect your daily life. You may have other tests done, such as: CT scan. MRI. An imaging test of how blood flows through your blood vessels (angiogram). How is this treated? Treating an underlying medical condition can sometimes make tinnitus go away. If your tinnitus continues, other treatments may include: Medicines, such as antidepressants or sleeping aids. Sound generators to mask the tinnitus. These include: ?Tabletop sound machines that play relaxing sounds to help you fall asleep. ?Wearable devices that fit in your ear and play sounds or music. ?Acoustic neural stimulation. This involves using headphones to listen to music that contains an auditory signal. Over time, listening to this signal may change some pathways in your brain and make you less sensitive to tinnitus. This treatment is used for very severe cases when no other treatment is working. Therapy and counseling to help you manage the stress of living with tinnitus. Using hearing aids or cochlear implants if your tinnitus is related to hearing loss. Hearing aids are worn in the outer ear. Cochlear implants are surgically placed in the inner ear. Follow these instructions at home: Managing symptoms When possible, avoid being in loud places and being exposed to loud sounds. Wear hearing protection, such as earplugs, when you are exposed to loud noises. Use a white noise machine, a humidifier, or other devices to mask the sound of tinnitus. Practice techniques for reducing stress, such as meditation, yoga, or deep breathing. Work with your health care provider if you need help with managing stress. Sleep with your head slightly raised. This may reduce the impact of tinnitus. General instructions Do not use stimulants, such as nicotine, alcohol, or caffeine. Talk with your health care provider about other stimulants to avoid. Stimulants are substances that can make you feel alert and attentive by increasing certain activities in the body (such as heart rate and blood pressure). These substances may make tinnitus worse. Take qxtm-rfc-udyxzax and prescription medicines only as told by your health care provider. Try to get plenty of sleep each night. Keep all follow-up visits as told by your health care provider. This is important. Contact a health care provider if: Your tinnitus continues for 3 weeks or longer without stopping. Your symptoms get worse or do not get better with home care. You develop tinnitus after a head injury. You have tinnitus along with any of the following: ?Dizziness. ?Loss of balance. ?Nausea and vomiting. Summary Tinnitus refers to hearing a sound when there is no actual source for that sound. This is often described as ringing in the ears. Symptoms may affect only one ear (unilateral) or both ears (bilateral). Use a white noise machine, a humidifier, or other devices to mask the sound of tinnitus. Do not use stimulants, such as nicotine, alcohol, or caffeine. Talk with your health care provider about other stimulants to avoid. These substances may make tinnitus worse. This information is not intended to replace advice given to you by your health care provider. Make sure you discuss any questions you have with your health care provider. Document Released: 09/05/2006 Document Revised: 08/18/2018 Document Reviewed: 06/15/2018 [employer] Patient Education 2020 [employer] Follow Up Care 05/04/2022 09:47:40 With:Wally KHALIL Hilda R Address: When: only if needed [facility] 07-27-2022 NoteCONSULTATION CONSULTATION DATE: 04/14/2022 HISTORY OF PRESENT ILLNESS: This is a pleasant, 71-year-old female who called for this appointment due to increased back pain to her right side following RFA procedure. Her right side was completed on 03/30/2022, and her left side was completed on 04/06/2022. Her left side has been improved by 75% and, at this time, she is reporting no improvement with her right side. She describes it as a deep ache to her right lower back that radiates to the lateral and anterior portion of her right lower extremity to the level of the knee. Patient's REVIEW OF SYSTEMS / PAST MEDICAL HISTORY / ALLERGIES and IMAGES have been reviewed and they are noted on the chart. PHYSICAL EXAM: VITAL SIGNS: Blood pressure 122/71, heart rate is 77. Temperature is 97.1. She is 5'1 , weighs 58.7 kg. GENERAL APPEARANCE: She is pleasant and appropriate. FOCUSED EXAM - BACK: Upon compression of paravertebral muscles, trigger point was identified to the right lateral to L4, L5 vertebrae. Compression reproduces the patient's pain symptomatology. Range of motion is functional in lateral rotation and flexion/extension. MUSCULOSKELETAL: Motor is intact, 4/5 bilaterally. She walks with a stable and steady gait. Does not use assistive device. NEUROLOGICAL: Bilateral patellar reflexes are +2. Patchy hypoesthesia noted along the L4 and L5 to the right lower extremity. IMPRESSION: Right lumbar paravertebral spasm and lumbar spondylosis, lumbar degenerative disc. PLAN: Patient will receive a right lumbar trigger point injection, which she does agree to, in the office today. I reiterated to her the recovery time of the ablations and the importance of applying heat and heat rubs to that area. Stretching was encouraged as well. Patient will be brought back to the clinic in three months' time unless otherwise indicated.[id number] NoteCONSULTATION PROCEDURE DATE: 04/14/2022 PREOPERATIVE DIAGNOSIS: Right paravertebral spasm. POSTOPERATIVE DIAGNOSIS: Right paravertebral spasm. PROCEDURE: Right paravertebral trigger point injection. Subsequent to obtaining informed consent, the patient was placed in the upright standing forward flexion position. Alcohol prep was used to sterilize the site. A 25 gauge needle was placed with 0.125 cc of Marcaine and 40 mg of Kenalog. Needle was placed inside the trigger point. Negative heme. Medication was injected in a fan-like pattern. Patient tolerated the procedure and will be followed up in the office.[facility] [id number] NoteCONSULTATION CONSULTATION DATE: 03/17/2022 HISTORY OF PRESENT ILLNESS: This is a pleasant, 71-year-old female who returned to the clinic status post #2 bilateral MBB of L2, L3 and L4, L5, in which she received 90% relief for 3-4 days. Patient did go to [place] couple days ago and rode a roller coaster which resulted in recurring lower back pain, but prior to riding the roller coaster, the patient stated she was able to walk around the park without difficulty and without the need to take rests. Her bilateral radiating leg pain has since been mitigated since that MBB. Today, her pain is a 4/10 and is aggravated by prolonged standing, walking, transitioning positions, sitting and bending. Current medications include baclofen 10 mg q.h.s., citalopram 20 mg daily, multivitamins and trazodone. Patient's REVIEW OF SYSTEMS / PAST MEDICAL HISTORY / ALLERGIES and IMAGES have been reviewed and they are noted on the chart. PHYSICAL EXAM: VITAL SIGNS: Blood pressure 110/69, heart rate is 75. Temperature is 98. She is 5'1 and weighs 58.8 kg. GENERAL APPEARANCE: Pleasant, appropriate, no acute distress. FOCUSED EXAM - BACK: Range of motion is guarded and limited in lateral rotation and flexion/extension. Reproduction of patient's spinal axial pain noted to direct compression along the posterior elements of the lumbar facets of L2, L3 and L4, L5 which is concurrent with facet arthropathy, lumbar spondylosis. Tonia's point is non-tender bilaterally. MUSCULOSKELETAL: Motor is intact, 4/5 bilaterally with good muscle tone. Patient walks without the use assistive device and has a steady gait. NEUROLOGICAL: Generalized hypoesthesia to the dorsal aspect of her right foot which is chronic. Bilateral +2 patellar reflexes are intact.. IMPRESSION: Lumbar degenerative disc disease, lumbar spondylosis, spinal axial lower back pain. PLAN: We will authorize for a radiofrequency ablation starting at the right side of L2, L3 and L4, L5; subsequently move to the left. A refill of her baclofen 10 mg q.h.s. will be given as well. Patient was encouraged to use her inversion table 1-2 times daily and to continue with her vitamins, stretches and heat rub. Nutrition importance was discussed as well. Patient will be followed up in the clinic post procedure and she agrees to move forward with the plan of care. [facility] Signed and Approved by: SWETHA BAILEY . 03/18/2022 13:37:00[facility]06-15-2022 Hospital Discharge instructions Patient Education 03/03/2022 09:40:03 Insomnia Insomnia Insomnia is a sleep disorder that makes it difficult to fall asleep or stay asleep. Insomnia can cause fatigue, low energy, difficulty concentrating, mood swings, and poor performance at work or school. There are three different ways to classify insomnia: Difficulty falling asleep. Difficulty staying asleep. Waking up too early in the morning. Any type of insomnia can be long-term (chronic) or short-term (acute). Both are common. Short-term insomnia usually lasts for three months or less. Chronic insomnia occurs at least three times a weekfor longer than three months. What are the causes? Insomnia may be caused by another condition, situation, or substance, such as: Anxiety. Certain medicines. Gastroesophageal reflux disease (GERD) or other gastrointestinal conditions. Asthma or other breathing conditions. Restless legs syndrome, sleep apnea, or other sleep disorders. Chronic pain. Menopause. Stroke. Abuse of alcohol, tobacco, or illegal drugs. Mental health conditions, such as depression. Caffeine. Neurological disorders, such as Alzheimer's disease. An overactive thyroid (hyperthyroidism). Sometimes, the cause of insomnia may not be known. What increases the risk? Risk factors for insomnia include: Gender. Women are affected more often than men. Age. Insomnia is more common as you get older. Stress. Lack of exercise. Irregular work schedule or working night shifts. Traveling between different time zones. Certain medical and mental health conditions. What are the signs or symptoms? If you have insomnia, the main symptom is having trouble falling asleep or having trouble staying asleep. This may lead to other symptoms, such as: Feeling fatigued or having low energy. Feeling nervous about going to sleep. Not feeling rested in the morning. Having trouble concentrating. Feeling irritable, anxious, or depressed. How is this diagnosed? This condition may be diagnosed based on: Your symptoms and medical history. Your health care provider may ask about: ?Your sleep habits. ?Any medical conditions you have. ?Your mental health. A physical exam. How is this treated? Treatment for insomnia depends on the cause. Treatment may focus on treating an underlying condition that is causing insomnia. Treatment may also include: Medicines to help you sleep. Counseling or therapy. Lifestyle adjustments to help you sleep better. Follow these instructions at home: Eating and drinking Limit or avoid alcohol, caffeinated beverages, and cigarettes, especially close to bedtime. These can disrupt your sleep. Do not eat a large meal or eat spicy foods right before bedtime. This can lead to digestive discomfort that can make it hard for you to sleep. Sleep habits Keep a sleep diary to help you and your health care provider figure out what could be causing your insomnia. Write down: ?When you sleep. ?When you wake up during the night. ?How well you sleep. ?How rested you feel the next day. ?Any side effects of medicines you are taking. ?What you eat and drink. Make your bedroom a dark, comfortable place where it is easy to fall asleep. ?Put up shades or blackout curtains to block light from outside. ?Use a white noise machine to block noise. ?Keep the temperature cool. Limit screen use before bedtime. This includes: ?Watching TV. ?Using your smartphone, tablet, or computer. Stick to a routine that includes going to bed and waking up at the same times every day and night. This can help you fall asleep faster. Consider making a quiet activity, such as reading, part of your nighttime routine. Try to avoid taking naps during the day so that you sleep better at night. Get out of bed if you are still awake after 15 minutes of trying to sleep. Keep the lights down, but try reading or doing a quiet activity. When you feel sleepy, go back to bed. General instructions Take frnq-sep-dixxnkb and prescription medicines only as told by your health care provider. Exercise regularly, as told by your health care provider. Avoid exercise starting several hours before bedtime. Use relaxation techniques to manage stress. Ask your health care provider to suggest some techniques that may work well for you. These may include: ?Breathing exercises. ?Routines to release muscle tension. ?Visualizing peaceful scenes. Make sure that you drive carefully. Avoid driving if you feel very sleepy. Keep all follow-up visits as told by your health care provider. This is important. Contact a health care provider if: You are tired throughout the day. You have trouble in your daily routine due to sleepiness. You continue to have sleep problems, or your sleep problems get worse. Get help right away if: You have serious thoughts about hurting yourself or someone else. If you ever feel like you may hurt yourself or others, or have thoughts about taking your own life,get help right away. You can go to your nearest emergency department or call: Your local emergency services (911 in the [place] A suicide crisis helpline, such as the National Suicide Prevention Lifeline at . Thisis open 24 hours a day. Summary Insomnia is a sleep disorder that makes it difficult to fall asleep or stay asleep. Insomnia can be long-term (chronic) or short-term (acute). Treatment for insomnia depends on the cause. Treatment may focus on treating an underlying condition that is causing insomnia. Keep a sleep diary to help you and your health care provider figure out what could be causing your insomnia. This information is not intended to replace advice given to you by your health care provider. Make sure you discuss any questions you have with your health care provider. Document Released: 09/02/2001 Document Revised: 08/18/2018 Document Reviewed: 06/15/2018 [employer] Patient Education 2020 [employer]. Follow Up Care 12/16/2021 10:45:03 With:MICAELA NG, Simona Webb, MED Address: [facility] [address], [place] [address]- When:Within 6 Month(s) [facility] 06-02-2022 NoteCONSULTATION CONSULTATION DATE: 02/18/2022 This is a 71-year-old female returning to the clinic status post #1 bilateral MBB at L2, L3 and L4, L5 which was completed on 02/02/2022 and afforded her 80% relief and is ongoing. The patient is a very active lady and does report that her pain does increase throughout the day. Activities such as standing, walking, housework, and bending aggravate the pain. Current medications include Baclofen 10 mg q.h.s., Trazadone 100 mg q.h.s., citalopram and Naprosyn. Overall she is very pleased with the outcome and would like to proceed thru the RFA series. She does do stretches everyday and uses her inversion table daily. She denies any new radicular pain or vasomotor changes. REVIEW OF SYSTEMS, PAST MEDICAL HISTORY, ALLERGIES AND IMAGES: Have been reviewed and noted in the chart. PHYSICAL EXAM: VITAL SIGNS: Blood pressure 123/70, heart rate is 73, temperature is 97.8. Height is 5'1 , weighs 61.6 kg. GENERAL APPEARANCE: No acute distress, pleasant and appropriate, sitting in the chair. FOCUSED EXAM: Back: Range of motion is guarded in lateral rotation and flexion. Reproduction of spinoaxial pain to direct compression along with the posterior elements of the facets of L2, L3 and L4, L5 bilaterally. Pain does not radiate below the knee. Tonia's point is nontender. MUSCULOSKELETAL: Motor is intact, 4 out o 5 bilaterally. The patient walks with a stable gait, does not use and assistive device. Muscle tone is adequate. NEUROLOGICAL: Negative polyneuropathy, +2 bilateral patellar and Achilles reflexes. DIAGNOSIS: Lumbar degenerative disk, lumbar spondylosis and axial lower back pain. PLAN: We will get authorization moved to #2 MBB to L2, L3 and L4, L5. The patient will be started on Miacalcin nasal spray and will have her repeat bone DEXA scan in 6to 8 weeks. We will take over her Trazadone prescription when refills are needed. The patient is to continue with her multivitamin regimen and I recommended Boost supplements as well. The patient agrees to the plan of care and would like to move forward and she will be followed in the office post- procedure. [facility] Signed and Approved by: SWETHA BAILEY . 02/24/2022 16:05:00[facility]04-28-2022 Hospital Discharge instructions Patient Education 01/14/2022 13:27:44 Insomnia Insomnia Insomnia is a sleep disorder that makes it difficult to fall asleep or stay asleep. Insomnia can cause fatigue, low energy, difficulty concentrating, mood swings, and poor performance at work or school. There are three different ways to classify insomnia: Difficulty falling asleep. Difficulty staying asleep. Waking up too early in the morning. Any type of insomnia can be long-term (chronic) or short-term (acute). Both are common. Short-term insomnia usually lasts for three months or less. Chronic insomnia occurs at least three times a weekfor longer than three months. What are the causes? Insomnia may be caused by another condition, situation, or substance, such as: Anxiety. Certain medicines. Gastroesophageal reflux disease (GERD) or other gastrointestinal conditions. Asthma or other breathing conditions. Restless legs syndrome, sleep apnea, or other sleep disorders. Chronic pain. Menopause. Stroke. Abuse of alcohol, tobacco, or illegal drugs. Mental health conditions, such as depression. Caffeine. Neurological disorders, such as Alzheimer's disease. An overactive thyroid (hyperthyroidism). Sometimes, the cause of insomnia may not be known. What increases the risk? Risk factors for insomnia include: Gender. Women are affected more often than men. Age. Insomnia is more common as you get older. Stress. Lack of exercise. Irregular work schedule or working night shifts. Traveling between different time zones. Certain medical and mental health conditions. What are the signs or symptoms? If you have insomnia, the main symptom is having trouble falling asleep or having trouble staying asleep. This may lead to other symptoms, such as: Feeling fatigued or having low energy. Feeling nervous about going to sleep. Not feeling rested in the morning. Having trouble concentrating. Feeling irritable, anxious, or depressed. How is this diagnosed? This condition may be diagnosed based on: Your symptoms and medical history. Your health care provider may ask about: ?Your sleep habits. ?Any medical conditions you have. ?Your mental health. A physical exam. How is this treated? Treatment for insomnia depends on the cause. Treatment may focus on treating an underlying condition that is causing insomnia. Treatment may also include: Medicines to help you sleep. Counseling or therapy. Lifestyle adjustments to help you sleep better. Follow these instructions at home: Eating and drinking Limit or avoid alcohol, caffeinated beverages, and cigarettes, especially close to bedtime. These can disrupt your sleep. Do not eat a large meal or eat spicy foods right before bedtime. This can lead to digestive discomfort that can make it hard for you to sleep. Sleep habits Keep a sleep diary to help you and your health care provider figure out what could be causing your insomnia. Write down: ?When you sleep. ?When you wake up during the night. ?How well you sleep. ?How rested you feel the next day. ?Any side effects of medicines you are taking. ?What you eat and drink. Make your bedroom a dark, comfortable place where it is easy to fall asleep. ?Put up shades or blackout curtains to block light from outside. ?Use a white noise machine to block noise. ?Keep the temperature cool. Limit screen use before bedtime. This includes: ?Watching TV. ?Using your smartphone, tablet, or computer. Stick to a routine that includes going to bed and waking up at the same times every day and night. This can help you fall asleep faster. Consider making a quiet activity, such as reading, part of your nighttime routine. Try to avoid taking naps during the day so that you sleep better at night. Get out of bed if you are still awake after 15 minutes of trying to sleep. Keep the lights down, but try reading or doing a quiet activity. When you feel sleepy, go back to bed. General instructions Take caai-fnt-wvxkkah and prescription medicines only as told by your health care provider. Exercise regularly, as told by your health care provider. Avoid exercise starting several hours before bedtime. Use relaxation techniques to manage stress. Ask your health care provider to suggest some techniques that may work well for you. These may include: ?Breathing exercises. ?Routines to release muscle tension. ?Visualizing peaceful scenes. Make sure that you drive carefully. Avoid driving if you feel very sleepy. Keep all follow-up visits as told by your health care provider. This is important. Contact a health care provider if: You are tired throughout the day. You have trouble in your daily routine due to sleepiness. You continue to have sleep problems, or your sleep problems get worse. Get help right away if: You have serious thoughts about hurting yourself or someone else. If you ever feel like you may hurt yourself or others, or have thoughts about taking your own life,get help right away. You can go to your nearest emergency department or call: Your local emergency services (911 in the [place] A suicide crisis helpline, such as the National Suicide Prevention Lifeline at . Thisis open 24 hours a day. Summary Insomnia is a sleep disorder that makes it difficult to fall asleep or stay asleep. Insomnia can be long-term (chronic) or short-term (acute). Treatment for insomnia depends on the cause. Treatment may focus on treating an underlying condition that is causing insomnia. Keep a sleep diary to help you and your health care provider figure out what could be causing your insomnia. This information is not intended to replace advice given to you by your health care provider. Make sure you discuss any questions you have with your health care provider. Document Released: 09/02/2001 Document Revised: 08/18/2018 Document Reviewed: 06/15/2018 [employer] Patient Education 2020 [employer]. Follow Up Care 01/13/2022 09:56:42 With:MICAELA NG, Simona Webb, [facility] Address: [address], [facility] [place] [address]- When: Unknown Comments:at regular appt but sooner if needed. [facility] Evaluation + Plan note Future Appointments Appointment Date:03/03/2022 09:00:00 AM Scheduled Provider:Simona ANDRES MD Location:[facility] Appointment Type: Open Future Scheduled Tests Laboratory* COVID-19 ([facility]) 10/29/21 * CBC w/ Auto Diff 08/25/21 * Comprehensive Metabolic Panel 08/25/21 * Lipid Panel 08/25/21 [facility] Evaluation + Plan note Future Appointments Appointment Date:09/03/2022 09:20:00 AM Scheduled Provider:Simona ANDRES MD Location:[facility] Appointment Type: Open Future Scheduled Tests Laboratory* COVID-19 ([facility]) 10/29/21 * CBC w/ Auto Diff 03/03/22 * Comprehensive Metabolic Panel 03/03/22 * Folate Level 03/03/22 * Lipid Panel 03/03/22 * Thyroid Stimulating Hormone 03/03/22 * Free T4 03/03/22 * Vitamin B12 Level 03/03/22 [facility] Evaluation + Plan note Future Appointments Appointment Date:09/03/2022 09:20:00 AM Scheduled Provider:Simona ANDRES MD Location:[facility] Appointment Type:FM Open Diagnostic Tests Pending * Urine Culture 05/05/22 Future Scheduled Tests Laboratory* COVID-19 ([facility]) 10/29/21 * CBC w/ Auto Diff 03/03/22 * Comprehensive Metabolic Panel 03/03/22 * Folate Level 03/03/22 * Lipid Panel 03/03/22 * Thyroid Stimulating Hormone 03/03/22 * Free T4 03/03/22 * Vitamin B12 Level 03[facility]03[facility]22 [facility] Appointment Date:09/03/2022 09:20:00 AM Scheduled Provider:Simona ANDRES MD Location:[facility] Appointment Type:FM Open Appointment Date:09/03/2022 10:30:00 AM Scheduled Provider: [facility] Type:RESTAURANT ASSISTANT MANAGER Sleep Study Clinic Follow Up (FT) Future Scheduled Tests Laboratory* COVID-19 ([facility]) 10[facility]29/21 [facility]ments Appointment Date:03/07/2023 09:20:00 AM Scheduled Provider:Simona ANDRES MD Location:[facility] Appointment Type:FM Open Future Scheduled Tests Laboratory* COVID-19 ([facility]) 10/29/21 * CBC w/ Auto Diff 09/03/22 * Comprehensive Metabolic Panel 09/03/22 * Lipid Panel 09/03/22 [facility] Evaluation + Plan note Future Appointments Appointment Date:12/10/2022 09:00:00 AM Scheduled Provider: [facility] Type:RESTAURANT ASSISTANT MANAGER Sleep Study Clinic Follow Up (FT) Appointment Date:03/07/2023 09:20:00 AM Scheduled Provider:Simona ANDRES MD Location:[facility] Appointment Type:FM Open Future Scheduled Tests Laboratory* CBC w/ Auto Diff 09/03/22 * Comprehensive Metabolic Panel 09/03/22 * Lipid Panel 09/03/22 [facility]ments Appointment Date:03/07/2023 09:20:00 AM Scheduled Provider:Simona ANDRES MD Location:[facility] Appointment Type:FM Open Future Scheduled Tests Laboratory* CBC w/ Auto Diff 09/03/22 * Comprehensive Metabolic Panel 09/03/22 * Lipid Panel 09/03/22 [facility]ments Appointment Date:03/17/2023 09:00:00 AM Scheduled Provider:Simona ANDRES MD Location:[facility]ment Type:FM Open [facility] Future Appointments Appointment Date:09/22/2023 09:20:00 AM Scheduled Provider:Simona ANDRES MD Location:[facility] Appointment Type:FM Open Future Scheduled Tests Laboratory* CBC w/ Auto Diff 03/17/23 * Comprehensive Metabolic Panel 03/17/23 * Lipid Panel 03/17/23 [facility] Evaluation + Plan note Future Appointments Appointment Date:09/22/2023 09:20:00 AM Scheduled Provider:Simona ANDRES MD Location:[facility] Appointment Type: Open Diagnostic Tests Pending * Urine Culture 06/07/23 Future Scheduled Tests Laboratory* CBC w/ Auto Diff 03/17/23 * Comprehensive Metabolic Panel 03/17/23 * Lipid Panel 03/17/23 [facility]ments Appointment Date:08/30/2023 11:40:00 AM Scheduled Provider:Simona ANDRES MD Location:[facility] Appointment Type:FM Open Appointment Date:09/22/2023 09:20:00 AM Scheduled Provider:Simona ANDRES MD Location:[facility] Appointment Type: Open Future Scheduled Tests Laboratory* CBC w/ Auto Diff 03/17/23 * Comprehensive Metabolic Panel 03/17/23 * Lipid Panel 03/17/23 [facility] Evaluation + Plan note Future Appointments Appointment Date:09/22/2023 09:20:00 AM Scheduled Provider:Simona ANDRES MD Location:[facility] Appointment Type: Open Future Scheduled Tests Laboratory* CBC w/ Auto Diff 03/17/23 * Comprehensive Metabolic Panel 03/17/23 * Lipid Panel 03/17/23 Radiology* US Renal 08/30/23 [facility] Evaluation + Plan note Future Appointments Appointment Date:09/21/2023 07:30:00 AM Scheduled Provider: [facility] Type:XR Pelvis/Hip (FT) Appointment Date:09/22/2023 09:20:00 AM Scheduled Provider:Simona ANDRES MD Location:[facility] Appointment Type: Open Future Scheduled Tests Radiology* XR Hip Aspiration/Injection Right 09/21/23 [facility] Future App[facility]ments Appointment Date:09/22/2023 09:20:00 AM Scheduled Provider:Simona ANDRES MD Location:[facility]ment Type: [facility] Future Appointments Appointment Date:01/09/2024 09:00:00 AM Scheduled Provider: [facility] App[facility] Type:RESTAURANT ASSISTANT MANAGER Sleep Study Clinic Follow Up () Appointment Date:03/20/2024 09:20:00 AM Scheduled Provider:Simona ANDRES MD Location:[facility] assessment information available [facility] Work Phone: Evaluation note* Diagnosis Lumbosacral radiculopathy- Primary Thoracic or lumbosacral neuritis or radiculitis, unspecified [facility] Spinal stenosis of lumbar region, unspecified whether neurogenic claudication present- Primary Lumbosacral radiculopathy Thoracic or lumbosacral neuritis or radiculitis, unspecified Lumbar radiculopathy, chronic Thoracic or lumbosacral neuritis or radiculitis, unspecified Degenerative arthropathy of spinal facet joint Spondylosis of unspecified site without mention of myelopathy Lumbar disc herniation Displacement of lumbar intervertebral disc without myelopathy [facility] Spinal stenosis, lumbar region, without neurogenic claudication- Primary Displacement of lumbar intervertebral disc without myelopathy Spinal stenosis, lumbar region, without neurogenic claudication Displacement of lumbar intervertebral disc without myelopathy [facility] Pain in right hip- Primary Pain in joint, pelvic region and thigh [facility] Diagnosis Acetabular labrum tear, right, initial encounter- Primary Primary osteoarthritis of right hip Primary localized osteoarthrosis, pelvic region and thigh Tendinopathy of right gluteus medius Trochanteric bursitis of right hip Enthesopathy of hip region Chronic bilateral low back pain with right-sided sciatica Spinal stenosis, lumbar region, without neurogenic claudication Displacement of lumbar intervertebral disc without myelopathy [facility] Diagnosis Spinal stenosis, lumbar region, without neurogenic claudication- Primary Displacement of lumbar intervertebral disc without myelopathy Spinal stenosis, lumbar region, without neurogenic claudication Displacement of lumbar intervertebral disc without myelopathy [facility] Diagnosis Iliotibial band syndrome of right side- Primary Lumbar spondylosis Lumbosacral spondylosis without myelopathy Hip pain, right Pain in joint, pelvic region and thigh Right hand pain Pain in soft tissues of limb [facility] - [facility]* Type Description Date Medical History hypercholesterolemia Medical History osteopenia Medical History deviated septum Surgical History facelift 1990 Surgical History breast augmentation-saline 1993 Surgical History Left rotator cuff tear repair x 2 2002 2006 Surgical History Right rotator cuff tear repair 2005 Surgical History tummy tuck 2001 Surgical History rhinoplasty 07-15-2011 Hospitalization History see above surg. hx. [employer] Other Hospital course Narrative No data available for this section [facility] Hospital Discharge instructions No data available for this section [facility] No data available for this section [facility] Reason for referral (narrative) Referred by: Hilda Lo CNP [facility] Reason for referral (narrative)* Diagnostic Procedure Only (Routine) - Authorized Specialty Diagnoses / Procedures Referred By Leanna martinez Referred To Contact XR IMAGING Diagnoses Pain in right hip Procedures XR HIP GENERAL 3V PELV/AP/LAT RIGHT RADEX HIP UNILATERAL WITH PELVIS 2-3 VIEWS Marychuy Peck PA-C [address] [address] [place] [address] Referral ID Status Reason Start Date Expiration Date Visits Requested Visits Authorized [id number] Authorized Auto-Generat ed Referral 08/25/2023 09/21/2024 1 1 [facility] Summary Purpose Family History No Family History Records FoundNo Family History Records FoundNo Family History Records Found No data available for this section No data available for this section No data available for this section No data available for this section No Family History Records FoundNo Family History Records Found No data available for this section No data available for this section No data available for this section No Family History Records FoundNo Family History Records Found Advance Directives No Advanced Directives Records Found Advance Directive Response Recorded Date/ Time Advance Directives No December 27 12:21pm Documents on File Type Date Recorded 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 Advance Directive(s) 07/06/2019 11:47 AM Documents on File Type Date Recorded 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 Advance Directive(s) 07/06/2019 11:47 AM Chief Complaint and Reason for Visit Chief Complaint Z12.31 r92.8 Chief Complaint m51.36 Reason for Referral Specialty Diagnoses / Procedures Referred By Contac t Referred To Contact Orthopaedic Surgery Diagnoses Iliotibial band syndrome of right side Procedures L Inj/Asp: R knee Raudel Evans DO [address] [place] [address] Referral ID Status Reason Start Date Expiration Date Visits Re quested Visits Authorized [id number] Closed 10/28/2023 04/25/2024 1 1 Specialty Diagnoses / Procedures Referred By Contac t Referred To Contact Physical Therapy Diagnoses Iliotibial band syndrome of right side Procedures [place] OFFICE/OUTPATIENT NEW HIGH MDM 60 MINUTES Raudel Evans DO [address] [address] Thalia Farley, PT [address] [place] [address] Referral ID Status Reason Start Date Expiration Date Visits Requested Visits Authorized [id number] Authorized Specialty Services Required 11/04/2023 01/02/2024 6 6 Specialty Diagnoses / Procedures Referred By Contmary t Referred To Contact [facility] Diagnoses Lumbosacral radiculopathy Procedures [facility]OUTPATIENT [facility] 60-[place] [address] [place] [address] Referral ID Status Reason Start Date Expiration Date Visits Requested Visits Authorized [id number] Authorized PCP Requested Referral 05/16/2023 05/15/2024 1 1 Additional Source Comments INFORMATION SOURCE (unrecogn ized section and content) DATE CREATED AUTHOR 03/15/2018 [facility] DATE CREATED AUTHOR AUTHOR'S ORGANIZ ATION 02/02/2023 [facility] DATE CREATED AUTHOR AUTHOR'S ORGANIZ ATION 06/01/2023 [facility] DATE CREATED AUTHOR AUTHOR'S ORGANIZ ATION 09/07/2023 [facility] DATE CREATED AUTHOR AUTHOR'S ORGANIZ ATION 09/09/2023 [facility] DATE CREATED AUTHOR AUTHOR'S ORGANIZ ATION 11/28/2023 [facility] DATE CREATED AUTHOR AUTHOR'S ORGANIZ ATION 01/11/2024 [facility] Special[facility] EPIC Care Team (unrecognized sect ion and content) Team Status: Active Member Role Status Dates Simona Andres MD Primary Care Provider Active Team Status: Inactive Member Role Status Dates Simona Andres MD Primary Care Provider Active Linus Arriola DO Attending Provider Active [employer] Work[employer] Relationship Specialty Start Date End Date Simona Andres MD PCP - General Internal Medicine 10/15/14 [employer] Relationship Specialty Start Date End Date Simona Andres MD PCP - General Internal Medicine 10/15/14 [employer] Work[employer] Relationship Specialty Start Date End Date Simona Andres MD PCP - General Internal Medicine 10/15/14 Team Status: Inactive Member Role Status Dates Simona Andres MD Primary Care Provider Active Nicolas Ramires MD Attending Provider Active [employer] Worker Relationship Specialty Start Date End Date Simona Andres MD PCP - General Internal Medicine 10/15/14 [employer] Worker Relationship Specialty Start Date End Date Simona Andres MD PCP - General Internal Medicine 10/15/14 [employer] Worker Relationship Specialty Start Date End Date Simona Andres MD PCP - General Internal Medicine 10/15/14 [employer] Worker Relationship Specialty Start Date End Date Simona Andres MD PCP - General Internal Medicine 10/15/14 [employer] Worker Relationship Specialty Start Date End Date Simona Andres MD PCP - General Internal Medicine 10/15/14 [employer] Worker Relationship Specialty Start Date End Date Simona Andres MD PCP - General Internal Medicine 10/15/14 [employer] Worker Relationship Specialty Start Date End Date Simona Andres MD [address] [place] [address] PCP - General Internal Medicine 03/02/23 Goals (unrecognized section and content) Goals may be documented in a n alternate section Source Comments (unrecognize d section and content) In the event this informatio n is protected by the Federal Confidentiality of Alcohol and Drug Abuse Patient Records regulations: The Federal rules restrict any use of the information to criminally investigate or prosecute any alcohol or drug abuse patient.[facility] the event this information is protected by the Federal Confidentiality of Alcohol and Drug Abuse Patient Records regulations: The Federal rules restrict any use of the information to criminally investigate or prosecute any alcohol or drug abuse patient.[facility] the event this information is protected by the Federal Confidentiality of Alcohol and Drug Abuse Patient Records regulations: The Federal rules restrict any use of the information to criminally investigate or prosecute any alcohol or drug abuse patient.[facility] the event this information is protected by the Federal Confidentiality of Alcohol and Drug Abuse Patient Records regulations: The Federal rules restrict any use of the information to criminally investigate or prosecute any alcohol or drug abuse patient.[facility] the event this information is protected by the Federal Confidentiality of Alcohol and Drug Abuse Patient Records regulations: The Federal rules restrict any use of the information to criminally investigate or prosecute any alcohol or drug abuse patient.[facility] the event this information is protected by the Federal Confidentiality of Alcohol and Drug Abuse Patient Records regulations: The Federal rules restrict any use of the information to criminally investigate or prosecute any alcohol or drug abuse patient.[facility] the event this information is protected by the Federal Confidentiality of Alcohol and Drug Abuse Patient Records regulations: The Federal rules restrict any use of the information to criminally investigate or prosecute any alcohol or drug abuse patient.[facility] the event this information is protected by the Federal Confidentiality of Alcohol and Drug Abuse Patient Records regulations: The Federal rules restrict any use of the information to criminally investigate or prosecute any alcohol or drug abuse patient.[facility] the event this information is protected by the Federal Confidentiality of Alcohol and Drug Abuse Patient Records regulations: The Federal rules restrict any use of the information to criminally investigate or prosecute any alcohol or drug abuse patient.[facility] Reason for Visit (unrecogniz ed section and content) Reason Comments Established Patient Reason Comments Pain LBP R>L with Rt knee pain Specialty Diagnoses / Procedures Referred By Leanna t Referred To Contact [facility] Diagnoses Lumbosacral radiculopathy Procedures [facility] OFFICE/OUTPATIENT [facility] 60-[place] [address] [place] [address] Referral ID Status Reason Start Date Expiration Date V isits Requested Visits Authorized [id number] Closed PCP Requested Referral 05/16/2023 05/15/2024 1 1 Reason Comments Procedure Reason Comments Follow Up Phone Call Reason Comments New Reason Comments Patient Question Reason Comments Pain Pain RMF, RIF trigger fin butch FOR RECORDS PERTAINING TO PATIENTS WHO ARE OR HAVE BEEN ENROLLED IN A CHEMICAL DEPENDENCY/SUBSTANCEABUSE PROGRAM, SOME INFORMATION MAY BE OMITTED. This clinical summary was aggregated from multiple sources. Caution should be exercised in using it in the provision of clinical care. This summary normalizes information from multiple sources, and as a consequence, information in this document may materially change the coding, format and clinical context of patient data. In addition, data may be omitted in some cases. CLINICAL DECISIONS SHOULD BE BASED ON THE PRIMARY CLINICAL RECORDS. [employer] provides no warranty or guarantee of the accuracy or completeness of information in this document.
== END 2024-01-19 09:23 | disposition home or self-care (01) ==
LOC: VC 09:22
PROVIDERS: PCP Radiology Diagnostic Radiology; Visit Provider Radiology Diagnostic Radiology
DX: I83.813 Varicose veins of bilateral lower extremities with pain (principal)
CPT/HCPCS: 36466

== ENCOUNTER 2024-01-26 09:24 | Outpatient (OUT) | payer MEDICARE, SELFPAY ==
--- NOTE | 2024-01-26 09:31 | VEIN_ITS ---
Patient Name: ROZ LE MR#: [id number] : 1950 Exam Date: 01/26/2024 Ordering Doctor: DR RAUDEL DAVIS M.D. RADIOLOGY REPORT PROCEDURE: [facility] EST [facility] - OFFICE VISIT FOLLOW UP [facility] PROGRESS NOTES: The patient reports improvement in leg symptoms. There has been interval reduction in varicosities. The patient has followed our recommendations to walk 20-30 minutes once or twice per day since the procedure. Physical exam demonstrates decrease in varicosities of the leg. No persistent varicosities. Review of the ultrasound performed the same day demonstrates occlusive thrombus extending throughout the treated vein(s), see separate report, consistent with a successful ablation. No thrombus extending into or beyond the saphenofemoral junction. The patient expressed a desire to proceed with treatment of reticular and spider veins. The patient was informed that treatment was a process and would require 1-2 procedures/sessions. [facility]: 1. Successful ablation of the right leg treated branch saphenous varicosities saphenous vein(s). 2. Persistent reticular veins and spider veins. PLAN: Bilateral lower extremity sclerotherapy. Nurse notes, history and physical were reviewed and confirmed, see attached forms. The nurse was present throughout the physical exam and consultation Dictated by: Jose Srivastava M.D. on 01/26/2024 at 16:19 Approved by: Jose Srivastava M.D. on 01/26/2024 at 16:22
--- NOTE | 2024-01-26 09:32 | VEIN_ITS ---
Patient Name: ROZ LE MR#: [id number] : 1950 Exam Date: 01/26/2024 Ordering Doctor: DR RAUDEL DAVIS M.D. RADIOLOGY REPORT PROCEDURE: VC EXT VENOUS RT LMTD COMPARISON: VC EXT VENOUS RT LMTD, 01/09/2024. INDICATIONS: Phlebitis of superficial vein of rt lower extremity I80.01 TECHNIQUE: Lower extremity hodge scale and Duplex Doppler evaluation of the deep venous system from the inguinal ligament through the calf veins. FINDINGS: REGION: Right lower extremity. THROMBI: Negative for DVT. 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 COMPRESSIBILITY: Non-compressible segments corresponding to thrombus FLOW: Areas of no flow corresponding to thrombus OTHER: No patent varicose veins remain. CONCLUSION: 1. Successful post ablation occlusion of right leg treated branch saphenous varicosities. Dictated by: Jose Srivastava M.D. on 01/26/2024 at 16:17 Approved by: Jose Srivastava M.D. on 01/26/2024 at 16:18
== END 2024-01-26 09:25 | disposition home or self-care (01) ==
LOC: VC 09:25
PROVIDERS: PCP Radiology Diagnostic Radiology; Visit Provider Radiology Diagnostic Radiology
DX: I80.01 Phlebitis and thrombophlebitis of superficial vessels of right lower extremity (principal)
CPT/HCPCS: 93971; G0463

== ENCOUNTER 2024-02-02 10:34 | Outpatient (OUT) | payer MEDICARE, SELFPAY ==
--- NOTE | 2024-02-02 10:38 | VEIN_ITS ---
[address] [address] Patient Name: ROZ LE MRN: [id number] date: 1950 Sex: F Assigned Patient Location: Current Patient Location: Accession/Order Number: [id number] Exam Date: 02/02/2024 10:40 Report Date: 02/02/2024 13:39 At the request of: RAUDEL DAVIS Procedure: VC INJ Sclerosing SOLMULT Vein EXAMINATION: VC INJ Sclerosing SOLMULT Vein HISTORY: I83.813 Pain due to varicose veins of bilateral legs The risks and benefits of the procedure were explained at length to the patient and informed written consent was obtained. The procedure was performed under sterile technique. The patient's leg was wrapped with Coban and postprocedural verbal and written instructions provided. Earnest Montes De Oca RN was present and assisted. SCLEROSANT: 2mL 0.5% Polidocanol. VEIN(S) INJECTED: 36 veins in the left leg. VISUALIZATION: Ultrasound was not used to visualize the sclerosant. ANESTHESIA: Supercooled air. COMPLICATIONS: None. Electronically authenticated by: PARISA SHEPARD Date: 02/02/2024 13:39
== END 2024-02-02 10:35 | disposition home or self-care (01) ==
LOC: VC 10:35
PROVIDERS: PCP Radiology Diagnostic Radiology; Visit Provider Radiology Diagnostic Radiology
DX: I83.813 Varicose veins of bilateral lower extremities with pain (principal)
CPT/HCPCS: 36471